=== PATIENT | male | born 1965 | race Caucasian/White ===

== ENCOUNTER 2019-12-20 18:16 | Emergency (ER) | payer SELFPAY ==
[2019-12-20 18:30] VITALS: BP 139/94; PULSE 89; RESP 18; TEMP 36.8; O2SAT 95; BMI 28.3
--- NOTE | 2019-12-20 18:41 | W.ED.EXTPRO ---
HPI - Extremity Problem General: Chief complaint: Extremity Injury, Upper Stated complaint: l arm pain/burning Time Seen by Provider: 12/20/19 18:41 History of Present Illness: HPI Narrative: Patient is a 54-year-old male who presents to the ED left shoulder pain. He states this is chronic issue and that he is told he has bursitis and has actually gotten left shoulder joint injections multiple times in the past several years. He denies any injury or trauma to cause left shoulder pain. He states the pain is just like his prior episodes. He also is complaining of having an episode yesterday where he was short of breath had chest pain and had some numbness and tingling down both extremities. He said this episode occurred 2 times yesterday and he was sitting down or lying down both the times it occurred. It resolved on its own. Patient does have diabetes, tobacco smoker and high cholesterol. He says 4 months ago they did a full heart workup and all results were normal. Associated symptoms: Reports chest pain (yesterday while laying down-it has since resolved); Deny fever(s) or rash Review of Systems Const: Denies: fever, chills or fatigue Eyes: Denies: change in vision or eye discomfort ENMT: Denies: throat pain, painful swallowing, nasal discharge or nasal congestion Card: Reports: chest pain (yesterday while laying down-it has since resolved); Denies: palpitations, edema, swelling of feet/ankles or shortness of breath when lying down Resp: Reports: shortness of breath (yesterday while laying down); Denies: productive cough or non-productive cough GI: Denies: abdominal pain, nausea, vomiting, diarrhea, constipation or blood in stool : Denies: flank pain, difficulty urinating, painful urination or blood in urine Musc: Reports: joint pain (chronic left shoulder pain); Denies: neck pain, back pain or extremity swelling Skin/Breast: Denies: rash or new lesion Neuro: Denies: headache, numbness in extremities or weakness in extremities PFSH ED PFSH: Social History Smoking and tobacco status: current every day smoker Physical Exam Narrative: EXAM NARRATIVE: Patient is a 54-year-old male who is sitting comfortably on the exam chair when entered the room. He is in no signs of acute distress or pain. Const: COMMON NORMALS: oriented x3 HENMT: COMMON NORMALS: normocephalic HEAD & SCALP: normocephalic MOUTH: oral and palatal mucosa normal THROAT: posterior oropharynx normal and uvula midline Neck/C-Spine: COMMON NORMALS: supple GENERAL: Yes normal visual inspection Resp: COMMON NORMALS: normal respiratory effort, no retractions, no use of accessory muscles and clear to auscultation bilaterally AUSCULTATION: clear to auscultation bilaterally Cardio: COMMON NORMALS: regular rate, regular rhythm, S1 normal heart sound, S2 normal heart sound, no gallops, no clicks, no murmurs and peripheral pulses 2+ throughout RATE: regular rate RHYTHM: regular rhythm HEART SOUNDS: S1 normal and S2 normal PERIPHERAL PULSES: pulses 2+ throughout GI: COMMON NORMALS: normal to inspection, nondistended, normoactive bowel sounds, soft to palpation, non-tender and no masses PALPATION: Yes soft : COMMON NORMALS: Yes no CVA tenderness BLADDER/KIDNEY EXAM: Yes no CVA tenderness Back/Pelvis: COMMON NORMALS: no CVA tenderness Extremity: LEFT UPPER EXTREMITY: Yes shoulder joint Left shoulder joint: Yes inspection (normal, no swelling), Yes palpation (tender on anterior and posterior aspect of shoulder), Yes ROM (normal but does have pain on movement) and Yes neurovascular exam (intact) Neuro: COMMON NORMALS: oriented x3 and moves all extremities Skin: COMMON NORMALS: no rashes or lesions noted GENERAL SKIN EXAM: no rashes or lesions noted and dry skin Course ED course: Due to shortness of breath yesterday I wanted to rule out any cardiac cause of shoulder pain. Patient's heart score was 3. Troponins were negative and ekg showed Normal sinus with no st elevation or depression. Patient denied any pain medication and was only wanting to get a joint injection while here in the ED. I told him that the staff here does not do joint injections and he should contact his PCP to schedule a joint injection. Vital Signs: Vital signs: Vital Signs Temperature 98.3 F 12/20/19 21:16 Pulse Rate 90 12/20/19 21:16 Respiratory Rate 16 12/20/19 21:16 Blood Pressure 103/59 12/20/19 21:16 Pulse Oximetry 97 12/20/19 21:16 MDM - Extremity (Nontraumatic) Lab Data: Labs: Lab Results 12/20/19 Range/Units 19:55 Troponin T Baselin e 8 (0-15) ng/mL Imaging Data^: Xray Ortho: Attestation: I personally reviewed and interpreted this imaging study as follows: My impression: Left Shoulder--No acute fractures pending final radiology report. EKG Data^: EKG 1: Attestation: I personally reviewed and interpreted this EKG as follows: EKG interpretation date: 12/20/19 Interpretation: Normal sinus rhythm, 82 bpm, no ST elevation or depression, P waves present Discharge Plan Discharge Patient Disposition: Home, Self-Care Clinical Impression: Shoulder pain, left Qualifiers: Chronicity: chronic Qualified Code(s): M25.512 - Pain in left shoulder Condition: Stable Prescriptions: No Action metformin 500 mg Tablet 500 mg PO BID RF: 0 glipizide 10 mg Tablet 10 mg PO DAILY RF: 0 tramadol 50 mg Tablet 50 mg PO Q4H RF: 0 Novolog Flexpen U-100 Insulin 100 unit/mL (3 mL) Insulin Pen SUBCUT DIRECTED RF: 0 Levemir FlexTouch U-100 Insuln 100 unit/mL (3 mL) Insulin Pen 30 unit SUBCUT BID RF: 0 Discharge Orders: Discharge Order (Routine); Ordered 12/20/19 Ordered By: Cezar Sánchez Referrals: Cezar Segura MD [Primary Care Provider] - Discharge Diet: Regular Discharge Activity: Increase activity as tolerated Patient Instructions: Bursitis - Shoulder Activity Restrictions/Additional Instructions: Follow-up with your PCP in 7 days for reevaluation. PCP should be able to do a joint injection or refer you to someone who can do a joint injection. Take npem-svr-[id number] ibuprofen or Tylenol as needed for pain. Discharge Date/Time: 12/20/19 21:19 Coding Level of Care Code ED Cat Scan Technologist for Chg Fwd Exam Comprehensive
--- NOTE | 2019-12-20 18:42 | XR_ITS ---
WS: [id number] SHOULDER LEFT TECHNIQUE: 3 views of the left shoulder CLINICAL INFORMATION: pain COMPARISON: None. FINDINGS: Moderate degenerative arthritis left AC joint. Mild rotator cuff arthropathy. No acute fractures. Pro ximal left humerus appears normal. XR/XR shoulder LT min 2V* [id number] IMPRESSION: Mild degenerative arthritis. No acute fractures.
[2019-12-20 19:07] VITALS: BP 147/95; PULSE 86; RESP 18; TEMP 36.8; O2SAT 95
--- NOTE | 2019-12-20 19:28 | ECG_ITS ---
Measurements Intervals [place] Rate: 82 P: 53 PA: 160 QRS: 60 QRSD: 105 T: 64 QT: 341 QTc: 399 SINUS RHYTHM Compared to ECG 06/14/2019 02:50:54 No significant changes Electronically Signed On 12-21-2019 15:16:33 JUDGE'S CLERK by Booker Cantu M.D. [email or web address]
--- NOTE | 2019-12-20 19:35 | PC.NURSE ---
READ AND AGREE WITH ASSESSMENT
[2019-12-20 20:26] LABS: Troponin(5th) Baseline 8 ng/mL (0-15)
[2019-12-20 21:16] VITALS: BP 103/59; PULSE 90; RESP 16; TEMP 36.8; O2SAT 97
== END 2019-12-20 21:19 | disposition home or self-care (01) ==
PROVIDERS: Emergency Provider Physician Assistant; Family Provider Family Medicine; PCP Family Medicine
DX: M25.512 Pain in left shoulder (principal); F17.200 Nicotine dependence, unspecified, uncomplicated
CPT/HCPCS: 36415; 73030; 84484; 93005; 99282; 99283

== ENCOUNTER → 2020-02-01 11:06 | Outpatient (BNVA) | payer SELFPAY | PROVIDERS: Family Provider Family Medicine; PCP Family Medicine; Visit Provider Family Medicine | DX: R05 Cough (principal); J10.1 Influenza due to other identified influenza virus with other respiratory manifestations; J45.21 Mild intermittent asthma with (acute) exacerbation | CPT/HCPCS: 87071; 87400; 87880 ==

== ENCOUNTER 2020-02-08 08:15 | Outpatient (CLI) | payer SELFPAY ==
--- NOTE | 2020-02-08 | XR_ITS ---
WS: [id number] PROCEDURE: XR chest 2V* [id number] CLINICAL INFORMATION: ACUTE LOWER RESPIRATORY TRACT INFECTION COMPARISON: June 13, 2019 FINDINGS: Heart: Normal cardiac silhouette. Lungs: Lungs are clear. No consolidation or pleural fluid. No acute pulmonary infiltrates. Bones: Postoperative changes lower cervical spine. XR/XR chest 2V* [id number] IMPRESSION: No acute chest findings.
== END 2020-02-08 08:16 | disposition home or self-care (01) ==
PROVIDERS: Family Provider Family Medicine; PCP Family Medicine; Visit Provider Family Medicine
DX: J22 Unspecified acute lower respiratory infection (principal)
CPT/HCPCS: 71046

== ENCOUNTER 2020-02-12 13:39 | Emergency (ER) | payer SELFPAY ==
[2020-02-12 13:44] VITALS: BP 169/115; PULSE 86; RESP 17; TEMP 36.9; O2SAT 96; BMI 28.3
--- NOTE | 2020-02-12 13:50 | ED_ITS ---
HPI - General Adult General: Chief complaint: General Medical Stated complaint: pain all over Time Seen by Provider: 02/12/20 13:44 History of Present Illness: HPI narrative: Patient suffers from chronic pain syndrome. He ran out of tramadol 5 days ago. States that he has been in severe pain since that time. Onset (ago): day(s) Review of Systems General: Reports: 10 or more systems reviewed and unremarkable except in HPI and below PFSH ED PFSH: Social History Smoking and tobacco status: current every day smoker Physical Exam Const: COMMON NORMALS: no apparent distress, average body habitus, oriented x3 and alert Neck/C-Spine: COMMON NORMALS: no JVD Resp: COMMON NORMALS: normal respiratory effort, no retractions, no use of accessory muscles and clear to auscultation bilaterally AUSCULTATION: clear to auscultation bilaterally Cardio: COMMON NORMALS: no JVD, regular rate and regular rhythm RATE: regular rate RHYTHM: regular rhythm Extremity: LEFT UPPER EXTREMITY: Yes shoulder joint Neuro: COMMON NORMALS: oriented x3 SENSORIUM/ORIENTATION: Yes alert Course Vital Signs: Vital signs: Vital Signs Temperature 98.4 F 02/12/20 13:44 Pulse Rate 86 02/12/20 13:44 Respiratory Rate 17 02/12/20 13:51 Blood Pressure 169/115 02/12/20 13:44 Pulse Oximetry 97 02/12/20 13:51 Discharge Plan Discharge Patient Disposition: Home, Self-Care Clinical Impression: Diabetic neuropathy Qualifiers: Diabetes mellitus type: type 1 Diabetes mellitus complication detail: diabetic polyneuropathy Qualified Code(s): E10.42 - Type 1 diabetes mellitus with diabetic polyneuropathy Chronic pain Qualifiers: Chronic pain type: chronic pain syndrome Qualified Code(s): G89.4 - Chronic pain syndrome Condition: Stable Prescriptions: New tramadol 50 mg tablet 25 mg PO Q6H PRN (Reason: pain) Qty: 20 RF: 0 No Action tramadol 50 mg tablet 50 mg PO Q4H 15 Days Qty: 90 RF: 0 metformin 500 mg Tablet 500 mg PO BID RF: 0 glipizide 10 mg Tablet 10 mg PO DAILY RF: 0 Novolog Flexpen U-100 Insulin 100 unit/mL (3 mL) Insulin Pen SUBCUT DIRECTED RF: 0 Levemir FlexTouch U-100 Insuln 100 unit/mL (3 mL) Insulin Pen 30 unit SUBCUT BID RF: 0 Discharge Orders: Discharge Order (Routine); Ordered 02/12/20 Ordered By: Enio Glover Referrals: Cezar Segura MD [Primary Care Provider] - Coding Level of Care Code ED Admitting Supervisor for Chg Fwd Exam Detailed
[2020-02-12 13:51] VITALS: RESP 17; O2SAT 97
[2020-02-12 14:11] VITALS: BP 122/54; PULSE 78; RESP 17; O2SAT 98
== END 2020-02-12 14:15 | disposition home or self-care (01) ==
LOC: ER 14:16
PROVIDERS: Emergency Provider Family Medicine; Family Provider Family Medicine; PCP Family Medicine
DX: G89.4 Chronic pain syndrome (principal); E10.42 Type 1 diabetes mellitus with diabetic polyneuropathy; Z79.4 Long term (current) use of insulin; F17.210 Nicotine dependence, cigarettes, uncomplicated; Z79.891 Long term (current) use of opiate analgesic
CPT/HCPCS: 12345; 99282

== ENCOUNTER → 2020-04-17 10:37 | Outpatient (BNVA) | payer SELFPAY | PROVIDERS: Family Provider Family Medicine; PCP Family Medicine; Visit Provider Urology | DX: N52.9 Male erectile dysfunction, unspecified (principal); R39.9 Unspecified symptoms and signs involving the genitourinary system; N49.2 Inflammatory disorders of scrotum | CPT/HCPCS: 81001 ==

== ENCOUNTER 2020-05-27 14:49 | Emergency (ER) | payer SELFPAY ==
[2020-05-27 15:05] VITALS: BP 133/89; PULSE 78; RESP 16; TEMP 36.1; O2SAT 95; BMI 28.6
--- NOTE | 2020-05-27 15:33 | XRR_ITS ---
PROCEDURE INFORMATION: Exam: XR Right Foot Complete Exam date and time: 05/27/2020 3:34 PM Age: 54 years old Clinical indication: Injury or trauma; Fall; Initial encounter; Sprain or strain; Foot; Right; Additional info: Pain/injury TECHNIQUE: Imaging protocol: XR Right foot. Views: 3 or more views. COMPARISON: No relevant prior studies available. FINDINGS: Bones/joints: Unremarkable Soft tissues: Normal. XR/XR foot RT min 3V* [id number] IMPRESSION: No acute findings.
--- NOTE | 2020-05-27 15:33 | XRR_ITS ---
PROCEDURE INFORMATION: Exam: XR Right Ankle Exam date and time: 05/27/2020 3:34 PM Age: 54 years old Clinical indication: Injury or trauma; Fall; Initial encounter; Sprain or strain; Ankle; Right; Additional info: Injury/pain TECHNIQUE: Imaging protocol: XR Right ankle. Views: 3 or more views. COMPARISON: No relevant prior studies available. FINDINGS: Bones/joints: Negative for acute bony abnormality. Soft tissues: Normal. XR/XR ankle RT min 3V* [id number] IMPRESSION: No acute findings.
--- NOTE | 2020-05-27 15:39 | W.ED.LOWEXIN ---
HPI - Extremity Injury (Lower) General: Chief Complaint: Extremity Injury, Lower Stated Complaint: right ankle pain/injury Time Seen by Provider: 05/27/20 15:23 Source: patient Mode of arrival: ambulatory Limitations: no limitations History of Present Illness: HPI Narrative: Patient is a 54-year-old male who presents to ED today with a complaint of right foot and ankle pain. 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 He states he began noticing pain on and states the pain has persisted. Patient is ambulatory with a gait here in the emergency department. complaint: ankle injury and foot injury Onset (ago): day(s) Injury: Right: ankle and foot Type of Injury: inversion Severity: moderate Relieving factors: immobilization Exacerbating factors: weight bearing, movement and palpation Context: other (twisting) Review of Systems Musc: Reports: extremity pain (R foot) and joint pain (R ankle); Denies: extremity swelling or joint swelling Neuro: Denies: numbness in extremities or sensory changes PFSH ED PFSH: Medical History (Updated 05/27/20 @ 16:06 by JAXON Ram) Encounter for long-term opiate analgesic use Erectile dysfunction Family History Father COPD (chronic obstructive pulmonary disease) Hypertension Hyperlipidemia Mother , at age 65 Hypertension Hyperlipidemia COPD (chronic obstructive pulmonary disease) Social History (Updated 05/27/20 @ 15:11 by Dieter Rodriguez RN) Smoking and tobacco status: current every day smoker cigarettes Second hand smoke exposure: No Alcohol intake: never Substance/Drug Use: never Marital status: Current occupational status: employed History of recent travel: No Physical Exam Const: COMMON NORMALS: no acute distress, average body habitus, patient oriented x3, no limitations, healthy appearing, alert and well nourished Extremity: GENERAL: Yes normal exam except as noted OTHER: TTP R lateral malleolus and lateral foot; no swelling/deformity noted Neuro: COMMON NORMALS: patient oriented x3, moves all extremities, no focal motor deficits and no sensory deficits noted SENSORIUM/ORIENTATION: Yes alert Skin: COMMON NORMALS: no rashes or lesions noted GENERAL SKIN EXAM: no rashes or lesions noted Course Vital Signs: Vital signs: Vital Signs Temperature 97.0 F L 05/27/20 15:05 Pulse Rate 78 05/27/20 15:05 Respiratory Rate 16 05/27/20 15:05 Blood Pressure 133/89 05/27/20 15:05 Pulse Oximetry 95 05/27/20 15:05 MDM - Extremity Injury (Lower) Imaging Data^: R ankle XR: Radiologist's impression: [address] [place] [address] XRay Report Signed Patient: Sal Timmons Unit #: [id number] : 1965 Age/Sex: 54 / M ADM Date: 05/27/20 Loc: ER Room/Bed: Attending Dr: Ordering Provider/Ordering MD: Louise Archer Date of Service: 05/27/20 Procedure(s): XR ankle RT min 3V* 82557 Accession Number(s): [id number] Report Number: [id number] PROCEDURE INFORMATION: Exam: XR Right Ankle Exam date and time: 05/27/2020 3:34 PM Age: 54 years old Clinical indication: Injury or trauma; Fall; Initial encounter; Sprain or strain; Ankle; Right; Additional info: Injury/pain TECHNIQUE: Imaging protocol: XR Right ankle. Views: 3 or more views. COMPARISON: No relevant prior studies available. FINDINGS: Bones/joints: Negative for acute bony abnormality. Soft tissues: Normal. XR/XR ankle RT min 3V* [id number] IMPRESSION: No acute findings. Dictated By: Miguel Santos Signed By: Miguel Santos Signed Date/Time: 05/27/20 1602 DD/ 1602 R foot XR: Radiologist's impression: [address] [place] [address] XRay Report Signed Patient: Sal Timmons Unit #: [id number] : 1965 Age/Sex: 54 / M ADM Date: 05/27/20 Loc: ER Room/Bed: Attending Dr: Ordering Provider/Ordering MD: Louise Archer Date of Service: 05/27/20 Procedure(s): XR foot RT min 3V* 48678 Accession Number(s): [id number] Report Number: [id number] PROCEDURE INFORMATION: Exam: XR Right Foot Complete Exam date and time: 05/27/2020 3:34 PM Age: 54 years old Clinical indication: Injury or trauma; Fall; Initial encounter; Sprain or strain; Foot; Right; Additional info: Pain/injury TECHNIQUE: Imaging protocol: XR Right foot. Views: 3 or more views. COMPARISON: No relevant prior studies available. FINDINGS: Bones/joints: Unremarkable Soft tissues: Normal. XR/XR foot RT min 3V* 22896 IMPRESSION: No acute findings. Dictated By: Miguel Santos Signed By: Miguel Santos Signed Date/Time: 05/27/201604 DD/ 03 Discharge Plan Discharge Patient Disposition: Home Clinical Impression: Mild sprain of right ankle Qualifiers: Encounter type: initial encounter Qualified Code(s): S93.401A - Sprain of unspecified ligament of right ankle, initial encounter Condition: Stable Prescriptions: No Action tramadol 50 mg tablet 50 mg PO Q4H 15 Days Qty: 180 RF: 2 metformin 500 mg Tablet 500 mg PO BID RF: 0 glipizide 10 mg Tablet 10 mg PO DAILY RF: 0 insulin aspart U-100 [Novolog Flexpen U-100 Insulin] 100 unit/mL (3 mL) Insulin Pen See Rx Instructions .ROUTE .COMPLEX RF: 0 Levemir FlexTouch U-100 Insuln 100 unit/mL (3 mL) Insulin Pen 30 unit SUBCUT BID RF: 0 Aspirin Low Dose 81 mg Tablet,Delayed Release (Dr/Ec) 81 mg PO DAILY RF: 0 Xanax 0.5 mg Tablet 0.5 mg PO BEDTIME RF: 0 Discharge Orders: Discharge Order (Routine); Ordered 05/27/20 Ordered By: Louise Archer Referrals: Cezar Segura MD [Primary Care Provider] - Patient Instructions: Ankle Sprain (ED), RICE Therapy (ED) Activity Restrictions/Additional Instructions: As discussed you may be weight bearing as tolerated. Please follow-up with your primary care provider in one week for continued pain. Coding Level of Care Code ED Top And Seat Cover Fitter for Pascual Smith
[2020-05-27 16:13] VITALS: BP 132/86; PULSE 78; RESP 18; O2SAT 95
== END 2020-05-27 16:13 | disposition home or self-care (01) ==
PROVIDERS: Emergency Provider Physician Assistant; PCP Family Medicine
DX: S93.401A Sprain of unspecified ligament of right ankle, initial encounter (principal); Z79.82 Long term (current) use of aspirin; Z79.4 Long term (current) use of insulin; F17.210 Nicotine dependence, cigarettes, uncomplicated; X50.1XXA Overexertion from prolonged static or awkward postures, initial encounter
CPT/HCPCS: 12345; 73610; 73630; 99282; 99283; E0114

== ENCOUNTER 2020-06-03 18:08 | Emergency (ER) | payer SELFPAY ==
[2020-06-03 18:29] VITALS: BP 137/88; PULSE 96; RESP 14; TEMP 36.3; O2SAT 95; BMI 29.0
--- NOTE | 2020-06-03 18:37 | CTR_ITS ---
PROCEDURE INFORMATION: Exam: CT Abdomen And Pelvis With Contrast Exam date and time: 06/03/2020 7:21 PM Age: 54 years old Clinical indication: Abdominal pain; Localized; Right lower quadrant (rlq); Patient HX: C/O rlq abd pain and nausea TECHNIQUE: Imaging protocol: Computed tomography of the abdomen and pelvis with intravenous contrast. Radiation optimization: All CT scans at this facility use at least one of these dose optimization techniques: automated exposure control; mA and/or kV adjustment per patient size (includes targeted exams where dose is matched to clinical indication); or iterative reconstruction. Contrast material: OMNI 300; Contrast volume: 95 ml; Contrast route: INTRAVENOUS (IV); COMPARISON: No relevant prior studies available. RADIATION DOSE METRICS: Total DLP (mGy-cm): 1426.59 FINDINGS: Lungs: Limited assessment lung bases reveals a tiny approximately 2 mm pulmonary nodule in the subpleural space of the right middle lobe series 2, image 2. No other evidence of active interstitial or alveolar airspace disease. Liver: Unremarkable. No mass. Gallbladder and bile ducts: Normal. No calcified stones. No ductal dilation. Pancreas: Normal. No ductal dilation. Spleen: Rare calcified splenic granuloma. Tiny splenule. Spleen otherwise unremarkable. Adrenals: Normal. No mass. Kidneys and ureters: Normal. No hydronephrosis. Stomach and bowel: Nonobstructive bowel pattern. No visible adynamic or reactive ileus. Appendix: The appendix is visualized appears noninflamed. Intraperitoneal space: Unremarkable. No free air. No significant fluid collection. Vasculature: The abdominal aorta is nonaneurysmal. Moderate arterial sclerotic disease. Lymph nodes: Unremarkable. No enlarged lymph nodes. Bladder: Unremarkable as visualized. Reproductive: Unremarkable as visualized. Bones/joints: Degenerative disc disease with vacuum disc phenomenon L4/5 and L5/S1. Degenerative disease of the spine. Facet arthrosis. Soft tissues: Small focus of subcutaneous fat stranding left mid abdomen of indeterminate clinical significance. No visible soft tissue hematoma, seroma, or abscess. CT/CT abdomen pelvis w con* [id number] IMPRESSION: 1. Currently no visible evidence of acute abdominal or pelvic pathologic process. 2. Tiny approximately 2 mm pulmonary nodule right middle lobe. For patients at low risk (minimal or absent history of smoking and of other known risk factors), no routine follow-up is indicated. For patients at high risk (history of smoking or of other known risk factors), consider optional CT at 12 months. ([place] et al., Fleischner Society, 2017). 3. The appendix is visualized appears noninflamed. 4. Other nonurgent, nonemergent, chronic, and age related findings as discussed in text above. Radiation Dose CTDIVOL = (mGy): DLP = 1426.59 (mGy-cm)
[2020-06-03 18:43] VITALS: O2SAT 94
--- NOTE | 2020-06-03 18:43 | ED_ITS ---
HPI - Abdominal Pain General: Chief Complaint: Abdominal Pain Stated Complaint: lower right abd pain Time Seen by Provider: 06/03/20 18:34 Source: patient Mode of arrival: ambulatory Limitations: no limitations History of Present Illness: HPI narrative: 54-year-old male who states he been having right lower quadrant pain over the last 2 days. He states pain got much worse today. He states it is worse with movement. He has had some nausea. Denies any diarrhea. MD elicited complaint: abdominal pain Pertinent past history: none Onset (ago): day(s) Pain Consistency: constant Location: RLQ Severity: moderate Quality: stabbing Radiation: none Migration to: no migration Exacerbating factors: movement Relieving factors: rest Associated Symptoms: Denies chills, dysuria and fever(s) Review of Systems Const: Denies: fever(s), chills, body aches or change in appetite Eyes: Denies: blurry vision or eye discomfort ENMT: Denies: throat pain or dental pain Card: Denies: chest pain Resp: Denies: dyspnea GI: Reports: abdominal pain : Denies: dysuria Musc: Denies: neck pain or back pain Skin/Breast: Denies: rash Neuro: Denies: headache(s) Psych: Denies: depression Derick/Lymph: Denies: easy bruising All/Imm: Denies: urticaria PFSH ED PFSH: Medical History Encounter for long-term opiate analgesic use Erectile dysfunction Family History Father COPD (chronic obstructive pulmonary disease) Hypertension Hyperlipidemia Mother , at age 65 Hypertension Hyperlipidemia COPD (chronic obstructive pulmonary disease) Social History Smoking and tobacco status: current every day smoker cigarettes Second hand smoke exposure: No Alcohol intake: never Marital status: Current occupational status: employed History of recent travel: No Physical Exam Const: COMMON NORMALS: no acute distress, patient oriented x3 and healthy appearing HENMT: COMMON NORMALS: normocephalic and atraumatic HEAD & SCALP: normocephalic and atraumatic Eye: COMMON NORMALS: Equal, round and reactive pupils present and EOMs intact bilaterally PUPIL: Yes Equal, round and reactive pupils present Neck/C-Spine: COMMON NORMALS: full ROM and supple Chest: COMMONS NORMALS: normal inspection of the chest and normal palpation of entire chest wall Resp: COMMON NORMALS: normal respiratory effort, No retractions, No use of accessory muscles and clear to auscultation bilaterally AUSCULTATION: clear to auscultation bilaterally Cardio: COMMON NORMALS: regular rate, regular rhythm and No murmurs present (Cardio) RATE: regular rate RHYTHM: regular rhythm GI: COMMON NORMALS: Normal to inspection, nondistended, normoactive bowel sounds present, Soft to palpation and no masses PALPATION: Yes Soft to palpation and Yes Tenderness to palpation present (GI) Details: RLQ Extremity: COMMON NORMALS: normal to inspection and full ROM Neuro: COMMON NORMALS: patient oriented x3, moves all extremities and no focal motor deficits Psych: COMMON NORMALS: mental status grossly normal, Normal thought process present and cooperative THOUGHT PROCESS: Normal thought process present Skin: COMMON NORMALS: no rashes or lesions noted and no wounds GENERAL SKIN EXAM: no rashes or lesions noted Course Vital Signs: Vital signs: Vital Signs Temperature 97.3 F L 06/03/20 18:29 Pulse Rate 96 06/03/20 18:29 Respiratory Rate 18 06/03/20 19:10 Blood Pressure 137/88 06/03/20 18:29 Pulse Oximetry 94 06/03/20 18:43 MDM - Abdominal Pain MDM Narrative: Medical decision making narrative: Patient presents with abdominal pain along with right hip pain is likely muscular in nature. Patient CT scan here showed no signs of appendicitis. Patient has good pulses to bilateral feet. Patient's lab work is normal as well. Patient is stable for discharge and is to follow-up with his PCP in 3 to 5 days and return if worsening. Lab Data: Labs: Lab Results 06/03/20 06/03/20 Range/Units 18:40 18:40 WBC 10.2 H (4.0-10.0) 10^3/ uL RBC 5.32 H (4.1-5.3) 10^6/u L Hgb 15.7 (11.7-16.6) g/dL Hct 47.3 (42.0-52.0) % MCV 88.9 (80-94) fL MCH 29.5 (28.0-34.0) pg MCHC 33.2 (30.0-36.0) g/dL RDW 12.6 (12.1-15.1) % Plt Count 254 (130-400) 10^3/c mm MPV 10.4 (7.4-10.4) fL Neut % (Auto) 64.5 % Lymph % (Auto) 23.7 % [place] % (Auto) 8.4 % Eos % (Auto) 2.4 % Baso % (Auto) 0.7 % Neut # (Auto) 6.59 (1.8-7.7) 10^3/u L Lymph # (Auto) 2.4 (0.8-4.8) 10^3/u L [place] # (Auto) 0.9 (0.2-0.9) 10^3/u L Eos # (Auto) 0.3 (0.0-0.8) 10^3/u L Baso # (Auto) 0.1 (0.0-0.1) 10^3/u L Nucleated RBC % (a uto) 0 % Nucleated RBCs # 0.0 /100WBC Sodium 134 L (136-145) mmol/L Potassium 4.5 (3.5-5.1) mmol/L Chloride 101 (98-107) mmol/L Carbon Dioxide 24 (22-29) mmol/L Anion Gap 13.5 (5-19) BUN 21 H (6-20) mg/dL Creatinine 1.0 (0.7-1.2) mg/dL GFR Calculation 77.6 L (90-130) mL/min Glucose 291 H (65-115) mg/dL Calculated Osmolal ity 285 (285-295) mOsm/k g Calcium 9.2 (8.5-10.5) mg/dL Total Bilirubin 0.4 (0.15-1.2) mg/dL AST 18 (0-40) U/L ALT 36 (0-41) U/L Alkaline Phosphata se 66 (40-130) IU/L Total Protein 7.8 (6.6-8.7) g/dL Albumin 4.4 (3.5-5.2) g/dL Globulin 3.4 (1.3-4.6) g/dL Lipase 12 L (13-60) U/L Imaging Data ^: CT Abd/Pel: Radiologist's impression: [facility] [address] [address] CT Scan Report Signed Patient: Sal Timmons Unit #: [id number] : 1965 Age/Sex: 54 / M ADM Date: 06/03/20 Loc: ER Room/Bed: Attending Dr: Ordering Provider/Ordering MD: Rani Savage MD Date of Service: 06/03/20 Procedure(s): CT abdomen pelvis w con* [id number] Accession Number(s): [id number] Report Number: [id number] PROCEDURE INFORMATION: Exam: CT Abdomen And Pelvis With Contrast Exam date and time: 06/03/2020 7:21 PM Age: 54 years old Clinical indication: Abdominal pain; Localized; Right lower quadrant (rlq); Patient HX: C/O rlq abd pain and nausea TECHNIQUE: Imaging protocol: Computed tomography of the abdomen and pelvis with intravenous contrast. Radiation optimization: All CT scans at this facility use at least one of these dose optimization techniques: automated exposure control; mA and/or kV adjustment per patient size (includes targeted exams where dose is matched to clinical indication); or iterative reconstruction. Contrast material: OMNI 300; Contrast volume: 95 ml; Contrast route: INTRAVENOUS (IV); COMPARISON: No relevant prior studies available. RADIATION DOSE METRICS: Total DLP (mGy-cm): 1426.59 FINDINGS: Lungs: Limited assessment lung bases reveals a tiny approximately 2 mm pulmonary nodule in the subpleural space of the right middle lobe series 2, image 2. No other evidence of active interstitial or alveolar airspace disease. Liver: Unremarkable. No mass. Gallbladder and bile ducts: Normal. No calcified stones. No ductal dilation. Pancreas: Normal. No ductal dilation. Spleen: Rare calcified splenic granuloma. Tiny splenule. Spleen otherwise unremarkable. Adrenals: Normal. No mass. Kidneys and ureters: Normal. No hydronephrosis. Stomach and bowel: Nonobstructive bowel pattern. No visible adynamic or reactive ileus. Appendix: The appendix is visualized appears noninflamed. Intraperitoneal space: Unremarkable. No free air. No significant fluid collection. Vasculature: The abdominal aorta is nonaneurysmal. Moderate arterial sclerotic disease. Lymph nodes: Unremarkable. No enlarged lymph nodes. Bladder: Unremarkable as visualized. Reproductive: Unremarkable as visualized. Bones/joints: Degenerative disc disease with vacuum disc phenomenon L4/5 and L5/S1. Degenerative disease of the spine. Facet arthrosis. Soft tissues: Small focus of subcutaneous fat stranding left mid abdomen of indeterminate clinical significance. No visible soft tissue hematoma, seroma, or abscess. CT/CT abdomen pelvis w con* [id number] IMPRESSION: 1. Currently no visible evidence of acute abdominal or pelvic pathologic process. 2. Tiny approximately 2 mm pulmonary nodule right middle lobe. For patients at low risk (minimal or absent history of smoking and of other known risk factors), no routine follow-up is indicated. For patients at high risk (history of smoking or of other known risk factors), consider optional CT at 12 months. (nikos Barahona al., Fleischner Society, 2017). 3. The appendix is visualized appears noninflamed. 4. Other nonurgent, nonemergent, chronic, and age related findings as discussed in text above. Discharge Plan Discharge Patient Disposition: Home Clinical Impression: Abdominal pain Qualifiers: Abdominal location: right lower quadrant Qualified Code(s): R10.31 - Right lower quadrant pain Condition: Stable Prescriptions: [place] 5-325 mg tablet 1 tab PO Q6H PRN (Reason: pain) Qty: 14 RF: 0 ondansetron 4 mg tablet,disintegrating 4 mg PO Q6H PRN (Reason: nausea and vomiting) Qty: 14 RF: 0 No Action tramadol 50 mg tablet 50 mg PO Q4H 15 Days Qty: 180 RF: 2 metformin 500 mg Tablet 500 mg PO BID RF: 0 glipizide 10 mg Tablet 10 mg PO DAILY RF: 0 insulin aspart U-100 [Novolog Flexpen U-100 Insulin] 100 unit/mL (3 mL) Insulin Pen See Rx Instructions .ROUTE .COMPLEX RF: 0 Levemir FlexTouch U-100 Insuln 100 unit/mL (3 mL) Insulin Pen 30 unit SUBCUT BID RF: 0 Aspirin Low Dose 81 mg Tablet,Delayed Release (Dr/Ec) 81 mg PO DAILY RF: 0 Xanax 0.5 mg Tablet 0.5 mg PO BEDTIME RF: 0 Discharge Orders: Discharge Order (Routine); Ordered 06/03/20 Ordered By: Rani Savage Referrals: Cezar Segura MD [Primary Care Provider] - 1-3 days Discharge Diet: Advance as tolerated Discharge Activity: Resume usual activity Patient Instructions: Abdominal Pain (ED) Coding Level of Care Code ED Clinical Laboratory Medical Director for Chg Fwd Exam Comprehensive
[2020-06-03 18:54] LABS: Basophils # 0.1 10^3/uL (0.0-0.1); Basophils % 0.7 %; Eosinophils # 0.3 10^3/uL (0.0-0.8); Eosinophils % 2.4 %; Hematocrit 47.3 % (42.0-52.0); Hemoglobin 15.7 g/dL (11.7-16.6); Lymphocytes # 2.4 10^3/uL (0.8-4.8); Lymphocytes % 23.7 %; Mean Corpuscular HGB Conc 33.2 g/dL (30.0-36.0); Mean Corpuscular Hemoglobin 29.5 pg (28.0-34.0); Mean Corpuscular Volume 88.9 fL (80-94); Mean Platelet Volume 10.4 fL (7.4-10.4); Monocytes # 0.9 10^3/uL (0.2-0.9); Monocytes % 8.4 %; Neutrophils # 6.59 10^3/uL (1.8-7.7); Neutrophils % 64.5 %; Nucleated Red Blood Cells % 0 %; Platelet Count 254 10^3/cmm (130-400); Red Blood Count 5.32 10^6/uL (4.1-5.3); Red Cell Distribution Width 12.6 % (12.1-15.1); White Blood Count 10.2 10^3/uL (4.0-10.0)
[2020-06-03] MEDS: ondansetron 2 mg/ML SDV 2 mL 4 MG IVP (19:09)
[2020-06-03] MEDS: sodium chloride 0.9% 1,000 ML 999 ML IV (19:09)
[2020-06-03 19:10] VITALS: RESP 18
[2020-06-03] MEDS: HYDROmorphone 1 mg/mL INJ 1 mL IVP (19:10)
[2020-06-03 19:15] LABS: Alanine Aminotransferase 36 U/L (0-41); Albumin Level 4.4 g/dL (3.5-5.2); Alkaline Phosphatase 66 IU/L (40-130); Anion Gap 13.5 (5-19); Aspartate Amino Transferase 18 U/L (0-40); Blood Urea Nitrogen 21 mg/dL (6-20); Calcium 9.2 mg/dL (8.5-10.5); Carbon Dioxide 24 mmol/L (22-29); Chloride 101 mmol/L (98-107); Globulin 3.4 g/dL (1.3-4.6); Glomerular Filtration Rate 77.6 mL/min (90-130); Glucose 291 mg/dL (65-115); Lipase 12 U/L (13-60); Osmolality Calculated 285 mOsm/kg (285-295); Potassium 4.5 mmol/L (3.5-5.1); Sodium 134 mmol/L (136-145); Total Bilirubin 0.4 mg/dL (0.15-1.2); Total Protein 7.8 g/dL (6.6-8.7)
[2020-06-03] MEDS: iohexol 300 mg/mL 100 mL Btl IV (19:27)
[2020-06-03 20:46] VITALS: BP 121/81; PULSE 83; RESP 18; O2SAT 99
[2020-06-03 20:47] VITALS: BP 121/81; PULSE 83; RESP 18; O2SAT 100
== END 2020-06-03 20:48 | disposition home or self-care (01) ==
PROVIDERS: Emergency Provider Emergency Medicine; PCP Family Medicine
DX: R10.31 Right lower quadrant pain (principal); Z79.82 Long term (current) use of aspirin; Z79.4 Long term (current) use of insulin; F17.210 Nicotine dependence, cigarettes, uncomplicated
CPT/HCPCS: 12345; 74177; 80053; 83690; 85025; 96361; 96374; 96375; 99282; 99283; J1170; J2405; J7030; Q9967

== ENCOUNTER 2020-06-07 16:25 | Outpatient (CLI) | payer SELFPAY ==
[2020-06-07 16:51] LABS: Basophils # 0.1 10^3/uL (0.0-0.1); Basophils % 0.7 %; Eosinophils # 0.3 10^3/uL (0.0-0.8); Eosinophils % 3.1 %; Hematocrit 46.6 % (42.0-52.0); Hemoglobin 15.6 g/dL (11.7-16.6); Lymphocytes # 2.4 10^3/uL (0.8-4.8); Lymphocytes % 25.1 %; Mean Corpuscular HGB Conc 33.5 g/dL (30.0-36.0); Mean Corpuscular Hemoglobin 29.8 pg (28.0-34.0); Mean Corpuscular Volume 89.1 fL (80-94); Mean Platelet Volume 11.1 fL (7.4-10.4); Monocytes # 0.7 10^3/uL (0.2-0.9); Monocytes % 7.7 %; Neutrophils # 5.95 10^3/uL (1.8-7.7); Neutrophils % 63.2 %; Nucleated Red Blood Cells % 0 %; Platelet Count 232 10^3/cmm (130-400); Red Blood Count 5.23 10^6/uL (4.1-5.3); Red Cell Distribution Width 12.5 % (12.1-15.1); White Blood Count 9.4 10^3/uL (4.0-10.0)
[2020-06-07 17:14] LABS: Alanine Aminotransferase 34 U/L (0-41); Albumin Level 4.3 g/dL (3.5-5.2); Alkaline Phosphatase 65 IU/L (40-130); Anion Gap 15.4 (5-19); Aspartate Amino Transferase 19 U/L (0-40); Blood Urea Nitrogen 28 mg/dL (6-20); Calcium 9.2 mg/dL (8.5-10.5); Carbon Dioxide 24 mmol/L (22-29); Chloride 101 mmol/L (98-107); Globulin 3.3 g/dL (1.3-4.6); Glomerular Filtration Rate 87.6 mL/min (90-130); Glucose 312 mg/dL (65-115); Osmolality Calculated 291 mOsm/kg (285-295); Potassium 4.4 mmol/L (3.5-5.1); Sodium 136 mmol/L (136-145); Total Bilirubin 0.2 mg/dL (0.15-1.2); Total Protein 7.6 g/dL (6.6-8.7)
[2020-06-07 17:32] LABS: Estmated Average Glucose 223; Hemoglobin A1C 9.4 % (4.0-6.0)
== END 2020-06-07 16:26 | disposition home or self-care (01) ==
LOC: LAB 16:26
PROVIDERS: PCP Family Medicine; Visit Provider General Practice
DX: E11.9 Type 2 diabetes mellitus without complications (principal); I10 Essential (primary) hypertension
CPT/HCPCS: 80053; 83036; 85025

== ENCOUNTER 2020-06-11 18:08 | Emergency (ER) | payer SELFPAY ==
[2020-06-11 18:10] VITALS: BP 154/101; PULSE 91; RESP 18; TEMP 36.6; O2SAT 98; BMI 29.7
[2020-06-11 18:24] VITALS: BP 166/107; PULSE 93; RESP 18; O2SAT 96
--- NOTE | 2020-06-11 18:27 | PC.NURSE ---
Generalized pain in all extremities , hx of neuropathy. States he is out of Tramadol and non complaint for diabetes
--- NOTE | 2020-06-11 18:38 | W.ED.GENADLT ---
HPI - General Adult General: Chief complaint: General Medical Stated complaint: arm/leg pain Time Seen by Provider: 06/11/20 18:27 Source: patient Mode of arrival: ambulatory History of Present Illness: HPI narrative: Patient is a 54-year-old gentleman with a history of diabetic neuropathy with neuropathic pain who follows at the pain clinic where he gets tramadol tablets. He had lost his Medicaid insurance and so could not follow-up at the pain clinic and get his refills. He has since been put back on Medicaid and has an appointment coming up with the pain specialist. Because his Medicaid has not kicked in yet he was advised by the pain specialist to come to the emergency department to be evaluated as they will not see him without insurance. He would like a refill of his pain medication. Associated symptoms: Deny dyspnea, headache(s), nausea, rash, palpitations or vomiting Review of Systems General: Reports: 10 or more systems reviewed and unremarkable except in HPI and below Const: Denies: fever(s), chills or body aches Eyes: Denies: change in vision or blurry vision ENMT: Denies: throat pain, enlarged tonsils, odynophagia, hoarseness, mouth pain or swelling of lips/tongue Card: Denies: palpitations, irregular heart rhythm, edema or swelling of feet/ankles Resp: Denies: dyspnea, productive cough or non-productive cough GI: Denies: abdominal pain, nausea or vomiting : Denies: flank pain, dysuria, urinary frequency, urinary urgency or urinary hesitancy Musc: Reports: muscle cramps; Denies: neck pain, back pain or extremity swelling Skin/Breast: Denies: rash, pruritus or erythema Neuro: Reports: numbness in extremities; Denies: headache(s) or weakness in extremities Endo: Denies: polyuria, polydipsia or tired all the time PFSH ED PFSH: Medical History (Reviewed 06/11/20 @ 20:09 by Balbir Patiño MD, [facility]) Encounter for long-term opiate analgesic use Erectile dysfunction Family History (Reviewed 06/11/20 @ 20:09 by Balbir Patiño MD, [facility] [place]) Father COPD (chronic obstructive pulmonary disease) Hypertension Hyperlipidemia Mother , at age 65 Hypertension Hyperlipidemia COPD (chronic obstructive pulmonary disease) Social History (Reviewed 06/11/20 @ 20:09 by Balbir Patiño MD, [facility] [place]) Smoking and tobacco status: current every day smoker cigarettes Second hand smoke exposure: No Alcohol intake: never Marital status: Current occupational status: employed History of recent travel: No Physical Exam Const: COMMON NORMALS: no acute distress, average body habitus, patient oriented x3, no limitations, healthy appearing, alert and well nourished Neck/C-Spine: COMMON NORMALS: no meningeal signs and no JVD Resp: COMMON NORMALS: normal respiratory effort, No retractions, No use of accessory muscles, clear to auscultation bilaterally and percussion normal AUSCULTATION: clear to auscultation bilaterally PERCUSSION: percussion normal Cardio: COMMON NORMALS: no JVD, regular rate, regular rhythm, S1 normal heart sound present, S2 normal heart sound present, No gallops present (Cardio), No clicks present (Cardio), No murmurs present (Cardio), No rub (Cardio) and Peripheral pulses 2+ throughout RATE: regular rate RHYTHM: regular rhythm HEART SOUNDS: S1 normal heart sound present and S2 normal heart sound present PERIPHERAL PULSES: Peripheral pulses 2+ throughout GI: COMMON NORMALS: Normal to inspection, nondistended, normoactive bowel sounds present, Soft to palpation, non-tender, No hepatosplenomegaly present, no masses and no bruits PALPATION: Yes Soft to palpation and Yes No hepatosplenomegaly present Extremity: COMMON NORMALS: normal to inspection, full ROM, capillary refill normal, no calf tenderness and no pedal edema Neuro: COMMON NORMALS: patient oriented x3 SENSORIUM/ORIENTATION: Yes alert MENINGEAL SIGNS: Yes no meningeal signs Skin: COMMON NORMALS: no rashes or lesions noted, no wounds, turgor normal, no jaundice, no petechiae and no mottling GENERAL SKIN EXAM: no rashes or lesions noted and turgor normal Course Vital Signs: Vital signs: Vital Signs Temperature 98.3 F 06/11/20 18:51 Pulse Rate 90 06/11/20 18:51 Respiratory Rate 20 H 06/11/20 18:51 Blood Pressure 166/107 06/11/20 18:51 Pulse Oximetry 96 06/11/20 18:51 MDM - General Adult MDM Narrative: Medical decision making narrative: 54-year-old gentleman with neuropathic pain who had run out of his pain prescriptions. He has an upcoming appointment to see the pain specialist so I will give him a short course of tramadol to tide him over until he gets seen. Medical Records: Attestation: I reviewed the patient's medical records. Discharge Plan Discharge Patient Disposition: Home Clinical Impression: Neuropathic pain, Neuropathy Condition: Stable Prescriptions: New tramadol 50 mg tablet 50 mg PO Q8H PRN (Reason: pain) Qty: 12 RF: 0 Continued tramadol 50 mg tablet 50 mg PO Q4H 15 Days Qty: 180 RF: 2 metformin 500 mg Tablet 500 mg PO BID RF: 0 glipizide 10 mg Tablet 10 mg PO DAILY RF: 0 insulin aspart U-100 [Novolog Flexpen U-100 Insulin] 100 unit/mL (3 mL) Insulin Pen See Rx Instructions .ROUTE .COMPLEX RF: 0 Levemir FlexTouch U-100 Insuln 100 unit/mL (3 mL) Insulin Pen 30 unit SUBCUT BID RF: 0 aspirin [Aspirin Low Dose] 81 mg Tablet,Delayed Release (Dr/Ec) 81 mg PO DAILY RF: 0 alprazolam [Xanax] 0.5 mg Tablet 0.5 mg PO BEDTIME RF: 0 ondansetron 4 mg tablet,disintegrating 4 mg PO Q6H PRN (Reason: nausea and vomiting) Qty: 14 RF: 0 Discharge Orders: Discharge Order (Routine); Ordered 06/11/20 Ordered By: Balbir Patiño Referrals: Cezar Segura MD [Primary Care Provider] - 4-7 days Discharge Diet: Usual diet Discharge Activity: Increase activity as tolerated Patient Instructions: Diabetic Neuropathy Activity Restrictions/Additional Instructions: Return for any new or worsening symptoms. Follow-up with your pain care provider as soon as he can to get a refill of your pain medications and to get back on your regular scheduled. Take the pain medicine I prescribed as needed. Discharge Date/Time: 06/11/20 18:54 Coding Level of Care Code ED Machine Cutter for Pascual Smith
[2020-06-11] MEDS: TRAMadol 50 mg Tablet PO (18:50)
[2020-06-11 18:51] VITALS: BP 166/107; PULSE 90; RESP 20; TEMP 36.8; O2SAT 96
== END 2020-06-11 18:54 | disposition home or self-care (01) ==
PROVIDERS: Emergency Provider Family Medicine; PCP Family Medicine
DX: E11.40 Type 2 diabetes mellitus with diabetic neuropathy, unspecified (principal); Z79.4 Long term (current) use of insulin; Z79.82 Long term (current) use of aspirin; F17.210 Nicotine dependence, cigarettes, uncomplicated
CPT/HCPCS: 12345; 99281; 99283

== ENCOUNTER 2020-07-28 13:56 | Emergency (ER) | payer SELFPAY ==
--- NOTE | 2020-07-28 13:58 | ECG_ITS ---
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 Measurements Intervals [place] Rate: 78 P: 39 WV: 172 QRS: 62 QRSD: 98 T: 54 QT: 360 QTc: 411 Interpretive Statements SINUS RHYTHM Compared to ECG 12/20/2019 19:41:15 No significant changes Electronically Signed On 07-29-2020 20:29:36 CDT by Ricardo Andrea M.D. [id number]
--- NOTE | 2020-07-28 13:58 | XRR_ITS ---
PROCEDURE INFORMATION: Exam: XR Chest, 1 View Exam date and time: 07/28/2020 1:59 PM Age: 54 years old Clinical indication: Chest pain; Additional info: Cp TECHNIQUE: Imaging protocol: XR of the chest Views: 1 view. COMPARISON: CR XR chest 2V* [id number] 02/08/2020 8:27 AM FINDINGS: Lungs: Unremarkable. No consolidation. Pleural space: Unremarkable. No pleural effusion. No pneumothorax. Heart/Mediastinum: Unremarkable. No cardiomegaly. Bones/joints: Moderate right acromioclavicular arthropathy. XR/XR chest 1V portable [id number] IMPRESSION: No acute findings.
[2020-07-28 14:11] VITALS: BMI 27.7
[2020-07-28 14:22] LABS: Glucose Point of Care 240 mg/dL (70-110)
[2020-07-28 14:27] VITALS: BP 140/88; PULSE 83; RESP 14; O2SAT 97
--- NOTE | 2020-07-28 14:28 | ED_ITS ---
HPI - Chest Pain General: Chief Complaint: Chest Pain Stated Complaint: CP Time Seen by Provider: 07/28/20 14:17 Source: patient Mode of arrival: ambulatory Limitations: no limitations History of Present Illness: HPI narrative: 54-year-old male states that roughly 1 hour ago he states that the pain was a pressure pain last about 10 minutes. He states he is currently pain-free and feels much improved. He had a stress test and a cath last year that were normal. He denies any worsening improving factors. Denies any fever. Denies cough Associated symptoms: Deny abdominal pain, dyspnea, fever(s), nausea or vomiting Review of Systems Const: Denies: fever(s), chills, body aches or change in appetite Eyes: Denies: blurry vision or eye discomfort ENMT: Denies: throat pain or dental pain Card: Reports: chest pain Resp: Denies: dyspnea GI: Denies: abdominal pain, nausea, vomiting or diarrhea : Denies: dysuria Musc: Denies: neck pain or back pain Skin/Breast: Denies: rash Neuro: Denies: headache(s) Psych: Denies: depression Derick/Lymph: Denies: easy bruising All/Imm: Denies: urticaria PFSH ED PFSH: Medical History Encounter for long-term opiate analgesic use Erectile dysfunction Family History Father COPD (chronic obstructive pulmonary disease) Hypertension Hyperlipidemia Mother , at age 65 Hypertension Hyperlipidemia COPD (chronic obstructive pulmonary disease) Social History Smoking and tobacco status: current every day smoker cigarettes Second hand smoke exposure: No Alcohol intake: never Marital status: Current occupational status: employed History of recent travel: No Physical Exam Const: COMMON NORMALS: no acute distress, patient oriented x3 and healthy appearing HENMT: COMMON NORMALS: normocephalic and atraumatic HEAD & SCALP: normocephalic and atraumatic Eye: COMMON NORMALS: Equal, round and reactive pupils present and EOMs intact bilaterally PUPIL: Yes Equal, round and reactive pupils present Neck/C-Spine: COMMON NORMALS: full ROM and supple Chest: COMMONS NORMALS: normal inspection of the chest and normal palpation of entire chest wall Resp: COMMON NORMALS: normal respiratory effort, No retractions, No use of accessory muscles and clear to auscultation bilaterally AUSCULTATION: clear to auscultation bilaterally Cardio: COMMON NORMALS: regular rate, regular rhythm and No murmurs present (Cardio) RATE: regular rate RHYTHM: regular rhythm GI: COMMON NORMALS: Normal to inspection, nondistended, normoactive bowel sounds present, Soft to palpation, non-tender and no masses PALPATION: Yes Soft to palpation Extremity: COMMON NORMALS: normal to inspection and full ROM Neuro: COMMON NORMALS: patient oriented x3, moves all extremities and no focal motor deficits Psych: COMMON NORMALS: mental status grossly normal, Normal thought process present and cooperative THOUGHT PROCESS: Normal thought process present Skin: COMMON NORMALS: no rashes or lesions noted and no wounds GENERAL SKIN EXAM: no rashes or lesions noted Course Vital Signs: Vital signs: Vital Signs Pulse Rate 73 07/28/20 15:37 Respiratory Rate 18 07/28/20 16:45 Blood Pressure 122/84 07/28/20 16:45 Pulse Oximetry 99 07/28/20 16:45 MDM - Chest Pain MDM Narrative: Medical decision making narrative: Patient presents here with chest pain that is atypical in nature. Patient's initial repeat troponin here negative. He is to follow-up with PCP and have an outpatient stress test. He has no signs of acute coronary syndrome. He has no signs of pulmonary bruising. He is to return if worsening. Lab Data: Labs: Lab Results 07/28/20 07/28/20 07/28/20 Range/Units 14:18 14:26 14:26 WBC 9.3 (4.0-10.0) 10^3/ uL RBC 5.09 (4.1-5.3) 10^6/u L Hgb 15.1 (11.7-16.6) g/dL Hct 45.3 (42.0-52.0) % MCV 89.0 (80-94) fL MCH 29.7 (28.0-34.0) pg MCHC 33.3 (30.0-36.0) g/dL RDW 12.3 (12.1-15.1) % Plt Count 211 (130-400) 10^3/c mm MPV 10.1 (7.4-10.4) fL Neut % (Auto) 67.4 % Lymph % (Auto) 22.6 % Perkins % (Auto) 6.4 % Eos % (Auto) 2.7 % Baso % (Auto) 0.6 % Neut # (Auto) 6.28 (1.8-7.7) 10^3/u L Lymph # (Auto) 2.1 (0.8-4.8) 10^3/u L Perkins # (Auto) 0.6 (0.2-0.9) 10^3/u L Eos # (Auto) 0.3 (0.0-0.8) 10^3/u L Baso # (Auto) 0.1 (0.0-0.1) 10^3/u L Nucleated RBC % (a uto) 0 % Nucleated RBCs # 0.0 /100WBC Sodium 134 L (136-145) mmol/L Potassium 4.5 (3.5-5.1) mmol/L Chloride 102 (98-107) mmol/L Carbon Dioxide 22 (22-29) mmol/L Anion Gap 14.5 (5-19) BUN 25 H (6-20) mg/dL Creatinine 1.0 (0.7-1.2) mg/dL GFR Calculation 77.6 L (90-130) mL/min Glucose 264 H (65-115) mg/dL POC Glucose 240 (70-110) mg/dL Calculated Osmolal ity 292 (285-295) mOsm/k g Calcium 9.5 (8.5-10.5) mg/dL Total Bilirubin 0.3 (0.15-1.2) mg/dL AST 23 (0-40) U/L ALT 28 (0-41) U/L Alkaline Phosphata se 70 (40-130) IU/L Troponin T Baselin e (0-15) ng/L Troponin T 120 Min franco (0-15) ng/L Total Protein 7.0 (6.6-8.7) g/dL Albumin 4.0 (3.5-5.2) g/dL Globulin 3.0 (1.3-4.6) g/dL 07/28/20 07/28/20 Range/Units 14:26 16:32 WBC (4.0-10.0) 10^3/ uL RBC (4.1-5.3) 10^6/u L Hgb (11.7-16.6) g/dL Hct (42.0-52.0) % MCV (80-94) fL MCH (28.0-34.0) pg MCHC (30.0-36.0) g/dL RDW (12.1-15.1) % Plt Count (130-400) 10^3/c mm MPV (7.4-10.4) fL Neut % (Auto) % Lymph % (Auto) % Perkins % (Auto) % Eos % (Auto) % Baso % (Auto) % Neut # (Auto) (1.8-7.7) 10^3/u L Lymph # (Auto) (0.8-4.8) 10^3/u L Perkins # (Auto) (0.2-0.9) 10^3/u L Eos # (Auto) (0.0-0.8) 10^3/u L Baso # (Auto) (0.0-0.1) 10^3/u L Nucleated RBC % (a uto) % Nucleated RBCs # /100WBC Sodium (136-145) mmol/L Potassium (3.5-5.1) mmol/L Chloride (98-107) mmol/L Carbon Dioxide (22-29) mmol/L Anion Gap (5-19) BUN (6-20) mg/dL Creatinine (0.7-1.2) mg/dL GFR Calculation (90-130) mL/min Glucose (65-115) mg/dL POC Glucose (70-110) mg/dL Calculated Osmolal ity (285-295) mOsm/k g Calcium (8.5-10.5) mg/dL Total Bilirubin (0.15-1.2) mg/dL AST (0-40) U/L ALT (0-41) U/L Alkaline Phosphata se (40-130) IU/L Troponin T Baselin e 8 (0-15) ng/L Troponin T 120 Min franco 6.97 (0-15) ng/L Total Protein (6.6-8.7) g/dL Albumin (3.5-5.2) g/dL Globulin (1.3-4.6) g/dL Imaging Data^: CXR: Attestation: I personally reviewed and interpreted this imaging study as follows: Radiologist's impression: [address] [address] XRay Report Signed Patient: Sal Timmons Unit #: [id number] : 1965 Age/Sex: 54 / M ADM Date: 07/28/20 Loc: ER Room/Bed: Attending Dr: Ordering Provider/Ordering MD: Rani Savage MD Date of Service: 07/28/20 Procedure(s): XR chest 1V portable [id number] Accession Number(s): [id number] Report Number: [id number] PROCEDURE INFORMATION: Exam: XR Chest, 1 View Exam date and time: 07/28/2020 1:59 PM Age: 54 years old Clinical indication: Chest pain; Additional info: Cp TECHNIQUE: Imaging protocol: XR of the chest Views: 1 view. COMPARISON: CR XR chest 2V* [id number] 02/08/2020 8:27 AM FINDINGS: Lungs: Unremarkable. No consolidation. Pleural space: Unremarkable. No pleural effusion. No pneumothorax. Heart/Mediastinum: Unremarkable. No cardiomegaly. Bones/joints: Moderate right acromioclavicular arthropathy. XR/XR chest 1V portable [id number] IMPRESSION: No acute findings. EKG Data^: EKG 1: Attestation: I personally reviewed and interpreted this EKG as follows: EKG interpretation date: 07/28/20 EKG interpretation time: 14:22 Interpretation: nsr hr [address] or t wave abnormalities qrs 98 qtc 393 Discharge Plan Discharge Patient Disposition: Home Clinical Impression: Chest pain Qualifiers: Chest pain type: unspecified Qualified Code(s): R07.9 - Chest pain, unspecified Condition: Stable Prescriptions: No Action metformin 500 mg Tablet 500 mg PO BID RF: 0 glipizide 10 mg Tablet 10 mg PO DAILY RF: 0 insulin aspart U-100 [Novolog Flexpen U-100 Insulin] 100 unit/mL (3 mL) Insulin Pen See Rx Instructions .ROUTE .COMPLEX RF: 0 Levemir FlexTouch U-100 Insuln 100 unit/mL (3 mL) Insulin Pen 30 unit SUBCUT BID RF: 0 aspirin [Aspirin Low Dose] 81 mg Tablet,Delayed Release (Dr/Ec) 81 mg PO DAILY RF: 0 alprazolam [Xanax] 0.5 mg Tablet 0.5 mg PO BEDTIME RF: 0 ondansetron 4 mg tablet,disintegrating 4 mg PO Q6H PRN (Reason: nausea and vomiting) Qty: 14 RF: 0 tramadol 50 mg tablet 50 mg PO Q8H PRN (Reason: pain) Qty: 12 RF: 0 Discharge Orders: Discharge Order (Routine); Ordered 07/28/20 Ordered By: Rani Savage Referrals: Cezar Segura MD [Primary Care Provider] - 1-3 days Discharge Diet: Advance as tolerated Discharge Activity: Resume usual activity Patient Instructions: Chest Pain (ED) Coding Level of Care Code ED 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
[2020-07-28 14:32] LABS: Basophils # 0.1 10^3/uL (0.0-0.1); Basophils % 0.6 %; Eosinophils # 0.3 10^3/uL (0.0-0.8); Eosinophils % 2.7 %; Hematocrit 45.3 % (42.0-52.0); Hemoglobin 15.1 g/dL (11.7-16.6); Lymphocytes # 2.1 10^3/uL (0.8-4.8); Lymphocytes % 22.6 %; Mean Corpuscular HGB Conc 33.3 g/dL (30.0-36.0); Mean Corpuscular Hemoglobin 29.7 pg (28.0-34.0); Mean Platelet Volume 10.1 fL (7.4-10.4); Monocytes # 0.6 10^3/uL (0.2-0.9); Monocytes % 6.4 %; Neutrophils # 6.28 10^3/uL (1.8-7.7); Neutrophils % 67.4 %; Nucleated Red Blood Cells % 0 %; Platelet Count 211 10^3/cmm (130-400); Red Blood Count 5.09 10^6/uL (4.1-5.3); Red Cell Distribution Width 12.3 % (12.1-15.1); White Blood Count 9.3 10^3/uL (4.0-10.0)
[2020-07-28 14:57] LABS: Alanine Aminotransferase 28 U/L (0-41); Alkaline Phosphatase 70 IU/L (40-130); Anion Gap 14.5 (5-19); Aspartate Amino Transferase 23 U/L (0-40); Blood Urea Nitrogen 25 mg/dL (6-20); Calcium 9.5 mg/dL (8.5-10.5); Carbon Dioxide 22 mmol/L (22-29); Chloride 102 mmol/L (98-107); Creatinine Clr Calc Pharmacy 101.5769; Glomerular Filtration Rate 77.6 mL/min (90-130); Glucose 264 mg/dL (65-115); Osmolality Calculated 292 mOsm/kg (285-295); Potassium 4.5 mmol/L (3.5-5.1); Sodium 134 mmol/L (136-145); Total Bilirubin 0.3 mg/dL (0.15-1.2)
[2020-07-28 14:58] LABS: Troponin(5th) Baseline 8 ng/L (0-15)
[2020-07-28 15:37] VITALS: BP 127/66; PULSE 73; RESP 18; O2SAT 95
[2020-07-28 16:45] VITALS: BP 122/84; RESP 18; O2SAT 99
[2020-07-28 17:05] LABS: Troponin 5 2HR 6.97 ng/L (0-15)
[2020-07-28 17:20] VITALS: BP 132/88; PULSE 76; RESP 16; O2SAT 99
[2020-07-28 17:56] LABS: Troponin 5 2HR Delta -1.03 ABS# (0-10)
== END 2020-07-28 17:20 | disposition home or self-care (01) ==
PROVIDERS: Emergency Provider Emergency Medicine; PCP Family Medicine
DX: R07.9 Chest pain, unspecified (principal); Z79.4 Long term (current) use of insulin; Z79.82 Long term (current) use of aspirin; F17.210 Nicotine dependence, cigarettes, uncomplicated
CPT/HCPCS: 12345; 36415; 36416; 71045; 80053; 82962; 84484; 85025; 93005; 99283

== ENCOUNTER → 2020-11-27 08:35 | Outpatient (BNVA) | payer OTHER, SELFPAY | PROVIDERS: PCP Family Medicine; Referring Provider Family Medicine; Visit Provider Anesthesiology Pain Medicine | DX: M48.062 Spinal stenosis, lumbar region with neurogenic claudication (principal); M47.816 Spondylosis without myelopathy or radiculopathy, lumbar region; M51.36 Other intervertebral disc degeneration, lumbar region; M19.012 Primary osteoarthritis, left shoulder; M25.511 Pain in right shoulder; F17.210 Nicotine dependence, cigarettes, uncomplicated; Z79.891 Long term (current) use of opiate analgesic | CPT/HCPCS: 99205 ==

== ENCOUNTER 2020-11-30 11:06 | Outpatient (CLI) | payer OTHER, SELFPAY ==
--- NOTE | 2020-11-30 11:20 | XR_ITS ---
WS: [id number] LUMBAR SPINE FLEXION AND EXTENSION TECHNIQUE: 3 views of the lumbar spine: Lateral neutral, flexion, and extension views. CLINICAL INFORMATION: M47.816 - Spondylosis without myelopathy or radiculopathy, lumbar region COMPARISON: None. FINDINGS: Normal lumbar alignment on the neutral view. Mild disc space narrowing L4-L5 and L5-S1. Chronic anter ior wedging at T12 and L1. No instability on flexion-extension. Moderate facet arthropathy L5-S1. Aor tic calcification. XR/XR lumbar spine f/e only [id number] IMPRESSION: No instability on flexion extension.
--- NOTE | 2020-11-30 11:20 | XR_ITS ---
WS: [id number] SHOULDER RIGHT TECHNIQUE: 3 views of the right shoulder CLINICAL INFORMATION: M19.90 - Unspecified osteoarthritis, unspecified site COMPARISON: None. FINDINGS: Mild degenerative arthritis at the AC joint with hypertrophic changes. Moderate narrowing of the suba cromial space. No clavicular fractures. Moderate degenerative narrowing at the glenohumeral joint wit h slight hypertrophic spurring along the inferior glenoid. XR/XR shoulder RT min 2V* [id number] IMPRESSION: 1. Mild degenerative arthritis at the AC joint. 2. Moderate rotator cuff arthropathy with narrowing of the subacromial space. 3. Moderate degenerative arthritis glenohumeral joint with slight glenoid hype rtrophic spurring.
== END 2020-11-30 11:07 | disposition home or self-care (01) ==
LOC: WPI 11:08
PROVIDERS: PCP Family Medicine; Visit Provider Anesthesiology Pain Medicine
DX: M19.012 Primary osteoarthritis, left shoulder (principal); F17.210 Nicotine dependence, cigarettes, uncomplicated; M19.90 Unspecified osteoarthritis, unspecified site
CPT/HCPCS: 20610; 72120; 73030; J1030; J3490

== ENCOUNTER → 2020-12-17 13:23 | Outpatient (BNVA) | payer OTHER, SELFPAY | PROVIDERS: PCP Family Medicine; Visit Provider Nurse Practitioner Family | DX: Z20.828 Contact with and (suspected) exposure to other viral communicable diseases (principal) | CPT/HCPCS: 87635 ==

== ENCOUNTER → 2021-01-09 09:41 | Outpatient (BNVA) | payer OTHER, SELFPAY | PROVIDERS: PCP Family Medicine; Visit Provider Anesthesiology Pain Medicine | DX: M19.90 Unspecified osteoarthritis, unspecified site (principal); M48.062 Spinal stenosis, lumbar region with neurogenic claudication; M51.36 Other intervertebral disc degeneration, lumbar region; M25.511 Pain in right shoulder; M25.512 Pain in left shoulder; F17.210 Nicotine dependence, cigarettes, uncomplicated; Z79.891 Long term (current) use of opiate analgesic | CPT/HCPCS: 99214 ==

== ENCOUNTER → 2021-01-23 15:26 | Outpatient (BNVA) | payer OTHER, SELFPAY | PROVIDERS: PCP Family Medicine; Referring Provider Anesthesiology Pain Medicine; Visit Provider Specialist | DX: M19.011 Primary osteoarthritis, right shoulder (principal); M25.511 Pain in right shoulder | CPT/HCPCS: 73030 ==

== ENCOUNTER → 2021-02-06 09:43 | Outpatient (BNVA) | payer OTHER, SELFPAY | PROVIDERS: PCP Family Medicine; Visit Provider Anesthesiology Pain Medicine | DX: M48.062 Spinal stenosis, lumbar region with neurogenic claudication (principal); M51.36 Other intervertebral disc degeneration, lumbar region; M19.011 Primary osteoarthritis, right shoulder; M19.012 Primary osteoarthritis, left shoulder; Z79.891 Long term (current) use of opiate analgesic | CPT/HCPCS: 99214 ==

== ENCOUNTER → 2021-03-11 10:47 | Outpatient (BNVA) | payer OTHER, SELFPAY | PROVIDERS: PCP Family Medicine; Visit Provider Anesthesiology Pain Medicine | DX: M48.062 Spinal stenosis, lumbar region with neurogenic claudication (principal); M51.36 Other intervertebral disc degeneration, lumbar region; M25.511 Pain in right shoulder; M25.512 Pain in left shoulder; M19.011 Primary osteoarthritis, right shoulder; F17.210 Nicotine dependence, cigarettes, uncomplicated; Z79.891 Long term (current) use of opiate analgesic | CPT/HCPCS: 99214 ==

== ENCOUNTER → 2021-04-17 07:57 | Outpatient (BNVA) | payer OTHER, SELFPAY | PROVIDERS: PCP Family Medicine; Visit Provider Urology | DX: R39.9 Unspecified symptoms and signs involving the genitourinary system (principal); M48.062 Spinal stenosis, lumbar region with neurogenic claudication; M51.36 Other intervertebral disc degeneration, lumbar region; N52.1 Erectile dysfunction due to diseases classified elsewhere; E11.9 Type 2 diabetes mellitus without complications | CPT/HCPCS: 81003 ==

== ENCOUNTER → 2022-03-06 10:19 | Outpatient (BNVA) | payer MEDICAID, SELFPAY | PROVIDERS: PCP Family Medicine; Referring Provider Family Medicine; Visit Provider Surgery | DX: Z12.11 Encounter for screening for malignant neoplasm of colon (principal) ==

== ENCOUNTER → 2022-06-16 15:06 | Outpatient (BNVA) | payer BC, MEDICAID, SELFPAY | PROVIDERS: PCP Family Medicine; Visit Provider Family Medicine | DX: Z51.81 Encounter for therapeutic drug level monitoring (principal); E11.9 Type 2 diabetes mellitus without complications; Z13.220 Encounter for screening for lipoid disorders; M54.12 Radiculopathy, cervical region; M48.062 Spinal stenosis, lumbar region with neurogenic claudication | CPT/HCPCS: 80053; 80061; 83036; 85025 ==

== ENCOUNTER 2022-07-30 15:02 | Outpatient (CLI) | payer BC, MEDICAID, SELFPAY ==
--- NOTE | 2022-07-30 15:20 | XR_ITS ---
WS: [id number] XR lumbar spine 2-3V* [id number] REASON FOR EXAM: Lumbar pain FINDINGS: Significant rotatory scoliosis convex left. Straightening of the normal lordosis of the lumbar spine. No significant focal vertebral body abnormality. Moderate narrowing of the L2-L3 disc space and the L5-S1 disc space. Moderate osteophytosis of the lumbar vertebrae L2-S1. No spondylolysis. 3 mm of anterolisthesis of L3 in relation to L2. 5 mm of anterolisthesis of L3 in relation to L4. 3 mm of anterolisthesis of L5 in relation to L4. Moderate degenerative changes in the facet joints L3-S1. XR/XR lumbar spine 2-3V* [id number] IMPRESSION: Degenerative spondylosis of the lumbar spine relatively unchanged compared to .
== END 2022-07-30 15:03 | disposition home or self-care (01) ==
PROVIDERS: PCP Family Medicine; Visit Provider Registered Nurse Neonatal Intensive Care
DX: M47.896 Other spondylosis, lumbar region (principal); M54.50 Low back pain, unspecified; M79.605 Pain in left leg
CPT/HCPCS: 72100

== ENCOUNTER 2022-08-11 11:36 | Emergency (ER) | payer BC, MEDICAID, SELFPAY ==
[2022-08-11 11:37] VITALS: BP 174/98; PULSE 90; RESP 18; TEMP 36.8; O2SAT 96; BMI 29.0
--- NOTE | 2022-08-11 11:39 | ED_ITS ---
HPI - Chest Pain General: Chief Complaint: General Medical Stated Complaint: chest pain/ dizziness Time Seen by Provider: 08/11/22 11:39 History of Present Illness: Mr. Timmons is a 56-year-old gentleman with significant past medical history of tobaccoism, diabetes [facility] to chest discomfort and shortness of breath. He reports symptom onset at rest and was sudden without known specific provoking factor though he did endorse drinking an energy drink earlier. He describes an abnormal heaviness in the center of his chest and a head lara. Most of the symptoms have resolved however he still has aching in the left anterior chest. Denies frequent history of similar. Intensity symptoms is currently mild though at worst was moderate to severe. No other specific changes in health, exacerbating, or alleviating factors identified. Onset (ago): hour(s) Timing of current episode: now resolved Prior episodes: No Onset: during rest Pain location: substernal Pain radiation: none Severity: moderate Quality: tightness and aching Associated symptoms: Reports nausea and other Review of Systems General: Reports: 10 or more systems reviewed and unremarkable except in HPI and below GI: Reports: nausea PFSH ED PFSH: Medical History Encounter for long-term opiate analgesic use Erectile dysfunction Family History Father , at age 77 COPD (chronic obstructive pulmonary disease) Hypertension Hyperlipidemia Mother , at age 65 Hypertension Hyperlipidemia COPD (chronic obstructive pulmonary disease) Social History Smoking and tobacco status: current every day smoker cigarettes Second hand smoke exposure: No Alcohol intake: never Marital status: Current occupational status: employed History of recent travel: No Physical Exam Const: COMMON NORMALS: alert GENERAL APPEARANCE: cooperative and well developed HENMT: COMMON NORMALS: normocephalic and atraumatic HEAD & SCALP: normocephalic and atraumatic Eye: COMMON NORMALS: conjunctivae normal CONJUNCTIVA: Yes conjunctivae normal SCLERA: sclerae normal Neck/C-Spine: COMMON NORMALS: supple GENERAL: Yes trachea midline Resp: COMMON NORMALS: clear to auscultation bilaterally EFFORT & INSPECTION: Yes able to speak in complete sentences AUSCULTATION: clear to auscultation bilaterally Cardio: COMMON NORMALS: regular rate and regular rhythm RATE: regular rate RHYTHM: regular rhythm GI: COMMON NORMALS: Soft to palpation PALPATION: Yes Soft to palpation and No Tenderness to palpation present (GI) Extremity: GENERAL: Yes normal exam except as noted and No edema Neuro: COMMON NORMALS: moves all extremities SENSORIUM/ORIENTATION: Yes alert and No Orientation impaired Psych: COMMON NORMALS: mental status grossly normal and Normal thought process present THOUGHT PROCESS: Normal thought process present Course Vital Signs: Vital signs: Vital Signs Temperature 98.3 F 08/11/22 11:37 Pulse Rate 90 08/11/22 11:37 Respiratory Rate 18 08/11/22 11:37 Blood Pressure 174/98 08/11/22 11:37 Pulse Oximetry 96 08/11/22 11:37 Oxygen Delivery Me thod 08/11/22 11:37 MDM - Chest Pain Medical Decision Making 56-year-old gentleman presenting with chest pain. Patient is nontoxic on exam. EKG shows sinus rhythm, no STEMI. Laboratory studies notable for no leukocytosis or other significant hematologic or metabolic abnormality requiring intervention. Delta troponin is negative. Chest x-ray with no lobar consolidation or pneumothorax. Most likely etiology of patient's symptoms is chest pain, unspecified. The results of ED evaluation were discussed with the patient including possible disposition options. I discussed risk stratification by heart score and estimated risk of major adverse cardiac events. The patient wishes to proceed with outpatient management. I discussed prescriptions and/or symptomatic cares (if applicable) including appropriate and responsible use, followup plan, and return precautions. The patient verbalized understanding and felt safe for discharge. Medical Records I reviewed the patient's medical records. Lab Data I reviewed the patient's lab results. : 08/11/22 11:47 08/11/22 11:47 Radiology Impressions Chest X-Ray 08/11/22 11:51 IMPRESSION: No acute abnormality. Laboratory Results WBC 9.9 10^3/uL (4.0-10.0) 08/11/22 11:47 RBC 5.09 10^6/uL (4.1-5.3) 08/11/22 11:47 Hgb 15.4 g/dL (11.7-16.6) 08/11/22 11:47 Hct 45.8 % (42.0-52.0) 08/11/22 11:47 MCV 90.0 fl (80-94) 08/11/22 11:47 MCH 30.3 pg (28.0-34.0) 08/11/22 11:47 MCHC 33.6 g/dL (30.0-36.0) 08/11/22 11:47 RDW 12.2 % (12.1-15.1) 08/11/22 11:47 Plt Count 225 10^3/cmm (130-400) 08/11/22 11:47 MPV 10.3 fL (7.4-10.4) 08/11/22 11:47 Neut % (Auto) 70.4 % 08/11/22 11:47 Lymph % (Auto) 20.1 % 08/11/22 11:47 Wood % (Auto) 6.0 % 08/11/22 11:47 Eos % (Auto) 2.5 % 08/11/22 11:47 Baso % (Auto) 0.6 % 08/11/22 11:47 Neut # (Auto) 6.98 10^3/uL (1.8-7.7) 08/11/22 11:47 Lymph # (Auto) 2.0 10^3/uL (0.8-4.8) 08/11/22 11:47 Wood # (Auto) 0.6 10^3/uL (0.2-0.9) 08/11/22 11:47 Eos # (Auto) 0.3 10^3/uL (0.0-0.8) 08/11/22 11:47 Baso # (Auto) 0.1 10^3/uL (0.0-0.1) 08/11/22 11:47 Nucleated RBC % (auto) 0 % 08/11/22 11:47 Nucleated RBCs # 0.0 /100WBC 08/11/22 11:47 Sodium 134 mmol/L (136-145) L 08/11/22 11:47 Potassium 4.3 mmol/L (3.5-5.1) 08/11/22 11:47 Chloride 99 mmol/L (98-107) 08/11/22 11:47 Carbon Dioxide 25 mmol/L (22-29) 08/11/22 11:47 Anion Gap 14.3 (5-19) 08/11/22 11:47 BUN 17 mg/dL (6-20) 08/11/22 11:47 Creatinine 0.8 mg/dL (0.7-1.2) 08/11/22 11:47 GFR Calculation 99.6 mL/min (90-130) 08/11/22 11:47 Glucose 147 mg/dL (65-115) H 08/11/22 11:47 Calculated Osmolality 282 mOsm/kg (285-295) L 08/11/22 11:47 Calcium 9.2 mg/dL (8.5-10.5) 08/11/22 11:47 Total Bilirubin 0.3 mg/dL (0.15-1.2) 08/11/22 11:47 AST 17 U/L (0-40) 08/11/22 11:47 ALT 30 U/L (0-41) 08/11/22 11:47 Alkaline Phosphatase 72 U/L (40-130) 08/11/22 11:47 Troponin T Baseline 8 ng/L (0-15) 08/11/22 11:47 Troponin T 120 Minute 7.94 ng/L (0-15) 08/11/22 13:52 Delta Troponin T -0.06 ABS# (0-10) L 08/11/22 13:52 NT-Pro-B Natriuret Pep 50 pg/mL (0-125) 08/11/22 11:47 Total Protein 7.4 g/dL (6.6-8.7) 08/11/22 11:47 Albumin 4.1 g/dL (3.5-5.2) 08/11/22 11:47 Globulin 3.3 g/dL (1.3-4.6) 08/11/22 11:47 Lipase 18 U/L (13-60) 08/11/22 11:47 TSH 1.70 uIU/mL (0.27-4.20) 08/11/22 11:47 Discharge Plan Discharge Patient Disposition: Home Clinical Impression: Chest pain Condition: Stable Prescriptions: No Action ibuprofen 200 mg tablet 800 mg PO .2-3 day PRN (Reason: Pain) insulin aspart U-100 [Novolog Flexpen U-100 Insulin] 100 unit/mL (3 mL) insulin pen 10 unit SUBCUT TID PRN (Reason: diabetes) Qty: 15 11RF tramadol 50 mg tablet 50 mg PO Q6H (DME) trimix injection 0 .Route .MEDSUPPLY Levemir FlexTouch U-100 Insuln 100 unit/mL (3 mL) insulin pen 60 unit SUBCUT BID Qty: 60 9RF cyclobenzaprine 10 mg tablet 10 mg PO TID PRN (Reason: muscle spasm) Qty: 60 0RF simvastatin 10 mg tablet 10 mg PO DAILY Qty: 30 6RF albuterol sulfate [ProAir HFA] 90 mcg/actuation HFA aerosol inhaler 2 puff inhalation Q4H PRN (Reason: shortness of breath or wheezing) Qty: 8.5 6RF Paxlovid (EUA) 150 mg x 2- 100 mg tablet See Rx Instructions PO .COMPLEX Qty: 30 0RF Rx Instructions: take TWO 150 mg tablets of nirmatrelvir with ONE 100 mg tablet of ritonavir twice daily for 5 days orally; mupirocin 2 % ointment 1 applic topical BID Qty: 15 2RF (DME) blood-glucose meter [OneTouch Ultra2 Meter] Kit See Rx Instructions .Route Qty: 1 0RF Rx Instructions: As directed metformin 500 mg Tablet 500 mg PO BID Discharge Orders: Discharge ED (Routine); Ordered 08/11/22 Ordered By: Wander Hurst Referrals: Cezar Segura MD [Primary Care Provider] - Discharge Diet: Usual diet Discharge Activity: Increase activity as tolerated Patient Instructions: Chest Pain (ED) Activity Restrictions/Additional Instructions: Thank you for visiting the emergency department. You were seen and evaluated for an episode of chest pain. The exact cause of the symptoms is unclear though as discussed I do believe that you require further cardiac evaluation. I will message case management for outpatient testing. Please follow-up with a primary care provider. Return to the emergency department for recurrent or worsening symptoms, or anything else that you are concerned about and feel needs emergency department evaluation. 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
--- NOTE | 2022-08-11 11:51 | XRR_ITS ---
PROCEDURE INFORMATION: Exam: XR Chest Exam date and time: 08/11/2022 12:00 PM Age: 56 years old Clinical indication: Pain; Left-sided and other: Heaviness; Patient HX: Chest discomfort and shortness of breath. He reports symptom onset at rest and was sudden without known specific provoking factor though he did endorse drinking an energy drink earlier. He describes an abnormal heaviness in the center of his chest and a head lara. Most of the symptoms have resolved however he still has aching in the left anterior chest. ; Additional info: Cp TECHNIQUE: Imaging protocol: Radiologic exam of the chest. Views: 1 view. COMPARISON: CR XR chest 1V portable [id number] 07/28/2020 2:52 PM FINDINGS: Lungs: There is a tiny benign calcified granuloma in the right mid lung zone. Otherwise lungs are clear. Pleural spaces: Unremarkable. No pleural effusion. No pneumothorax. Heart/Mediastinum: Unremarkable. No cardiomegaly. Bones/joints: Unremarkable. XR/XR chest 1V portable [id number] IMPRESSION: No acute abnormality.
--- NOTE | 2022-08-11 11:51 | ECG_ITS ---
[facility] Test Date: 2022-08-11 Pat Name: Sal Timmons Department: Room: Gender: Male Devops Solutions Architect: : 1965 Requested By: Wander Hurst Order Number: [id number] Rob MD: Ricardo Andrea M.D. Measurements Intervals [place] Rate: 85 P: 64 [place]: 174 QRS: 69 QRSD: 98 T: 69 QT: 342 QTc: 407 Interpretive Statements SINUS RHYTHM Compared to ECG 07/28/2020 14:22:39 No significant changes Electronically Signed On 08-11-2022 17:17:18 CDT by Ricardo Andrea M.D. [id number] f
[2022-08-11 12:12] LABS: Basophils # 0.1 10^3/uL (0.0-0.1); Basophils % 0.6 %; Eosinophils # 0.3 10^3/uL (0.0-0.8); Eosinophils % 2.5 %; Hematocrit 45.8 % (42.0-52.0); Hemoglobin 15.4 g/dL (11.7-16.6); Lymphocytes % 20.1 %; Mean Corpuscular HGB Conc 33.6 g/dL (30.0-36.0); Mean Corpuscular Hemoglobin 30.3 pg (28.0-34.0); Mean Platelet Volume 10.3 fL (7.4-10.4); Monocytes # 0.6 10^3/uL (0.2-0.9); Neutrophils # 6.98 10^3/uL (1.8-7.7); Neutrophils % 70.4 %; Nucleated Red Blood Cells % 0 %; Platelet Count 225 10^3/cmm (130-400); Red Blood Count 5.09 10^6/uL (4.1-5.3); Red Cell Distribution Width 12.2 % (12.1-15.1); White Blood Count 9.9 10^3/uL (4.0-10.0)
[2022-08-11] MEDS: aspirin 81 mg Chew Tablet 324 MG PO (12:19)
[2022-08-11 12:31] LABS: Troponin(5th) Baseline 8 ng/L (0-15)
[2022-08-11 12:34] LABS: Alanine Aminotransferase 30 U/L (0-41); Albumin Level 4.1 g/dL (3.5-5.2); Alkaline Phosphatase 72 U/L (40-130); Anion Gap 14.3 (5-19); Aspartate Amino Transferase 17 U/L (0-40); Blood Urea Nitrogen 17 mg/dL (6-20); Calcium 9.2 mg/dL (8.5-10.5); Carbon Dioxide 25 mmol/L (22-29); Chloride 99 mmol/L (98-107); Globulin 3.3 g/dL (1.3-4.6); Glomerular Filtration Rate 99.6 mL/min (90-130); Glucose 147 mg/dL (65-115); Lipase 18 U/L (13-60); NT Pro B Type Natriuretic Pept 50 pg/mL (0-125); Osmolality Calculated 282 mOsm/kg (285-295); Potassium 4.3 mmol/L (3.5-5.1); Sodium 134 mmol/L (136-145); Total Bilirubin 0.3 mg/dL (0.15-1.2); Total Protein 7.4 g/dL (6.6-8.7)
--- NOTE | 2022-08-11 14:24 | ECG_ITS ---
[facility] Test Date: 2022-08-11 Pat Name: Sal Timmons Department: Room: Gender: Male Resident Services Manager: : 1965 Requested By: Wander Hurst Order Number: [id number] Rob MD: Ricardo Andrea M.D. Measurements Intervals [place] Rate: 79 P: 60 [place]: 174 QRS: 63 QRSD: 98 T: 62 QT: 358 QTc: 410 Interpretive Statements SINUS RHYTHM Compared to ECG 08/11/2022 11:56:09 No significant changes Electronically Signed On 08-11-2022 17:23:08 CDT by Ricardo Andrea M.D. [id number]
[2022-08-11 14:31] LABS: Troponin 5 2HR 7.94 ng/L (0-15)
[2022-08-11 15:05] LABS: Troponin 5 2HR Delta -0.06 ABS# (0-10)
--- NOTE | 2022-08-13 08:30 | DCPLANNER ---
Addendum entered by Shanda Espitia 10/16/22 10:57: Patient had a stress test scheduled - patient did not attend stress test Addendum entered by Shanda Espitia 09/18/22 08:02: Patient has a stress test scheduled for Thursday, October 13, 2022 at 11:30. Centralized scheduling will call patient with appointment information. Original Note: district manager major accounts sales had message to schedule an outpatient stress test for patient. district manager major accounts sales faxed signed order to centralized scheduling, who will call patient with appointment information. district manager major accounts sales also sent patients primary care physician, Dr. Segura, notification that a stress test was ordered by the ER physician.
== END 2022-08-11 15:29 | disposition home or self-care (01) ==
PROVIDERS: Emergency Provider Emergency Medicine; PCP Family Medicine
DX: R07.9 Chest pain, unspecified (principal); Z79.84 Long term (current) use of oral hypoglycemic drugs; Z79.4 Long term (current) use of insulin; F17.210 Nicotine dependence, cigarettes, uncomplicated
CPT/HCPCS: 36415; 71045; 80053; 83690; 83880; 84443; 84484; 85025; 93005; 99285

== ENCOUNTER → 2022-08-19 08:01 | Outpatient (BNVA) | payer BC, MEDICAID, SELFPAY | PROVIDERS: PCP Family Medicine; Visit Provider Orthopaedic Surgery | DX: M48.062 Spinal stenosis, lumbar region with neurogenic claudication (principal); M51.36 Other intervertebral disc degeneration, lumbar region | CPT/HCPCS: 72120 ==

== ENCOUNTER 2022-09-24 11:51 | Emergency (ER) | payer BC, MEDICAID, SELFPAY ==
[2022-09-24 11:57] VITALS: BP 116/83; PULSE 91; RESP 14; TEMP 36.5; O2SAT 96; BMI 28.8
--- NOTE | 2022-09-24 12:05 | ECG_ITS ---
[facility] Test Date: 2022-09-24 Pat Name: Sal Timmons Department: Room: Gender: Male Project Manager/Design Manager: : 1965 Requested By: Kings Gilmore Order Number: [id number] Rob MD: Ricardo Andrea M.D. Measurements Intervals [place] Rate: 87 P: 65 [place]: 163 QRS: 69 QRSD: 106 T: 70 QT: 343 QTc: 413 Interpretive Statements SINUS RHYTHM Compared to ECG 08/11/2022 14:24:39 No significant changes Electronically Signed On 09-24-2022 18:04:22 THROUGH OPERATOR by Ricardo Andrea M.D. [id number]
--- NOTE | 2022-09-24 12:25 | ED_ITS ---
HPI - Chest Pain General: Chief Complaint: Chest Pain Stated Complaint: chest pain Time Seen by Provider: 09/24/22 12:14 History of Present Illness: Patient comes in with chest pain. States that while sitting there this morning he developed tingling across his whole chest and arms then developed sharp chest pain across his entire chest. States it lasted for about 5 minutes and then resolved. States he had some shortness of breath and dizziness at the time also. States he is scheduled for a cardiac stress test in 3 weeks. Associated symptoms: Deny abdominal pain, dyspnea, fever(s), nausea, palpitations or vomiting Review of Systems Const: Denies: fever(s) or body aches Eyes: Denies: change in vision or blurry vision ENMT: Denies: throat pain or odynophagia Card: Reports: chest pain; Denies: palpitations Resp: Denies: dyspnea or productive cough GI: Denies: abdominal pain, nausea or vomiting : Denies: flank pain or dysuria Musc: Denies: neck pain or back pain Skin/Breast: Denies: rash or pruritus Neuro: Denies: headache(s) or numbness in extremities Psych: Denies: anxiety or change in appetite Endo: Denies: polyuria or excessive sweating PFSH ED PFSH: Medical History Encounter for long-term opiate analgesic use Erectile dysfunction Family History Father , at age 77 COPD (chronic obstructive pulmonary disease) Hypertension Hyperlipidemia Mother , at age 65 Hypertension Hyperlipidemia COPD (chronic obstructive pulmonary disease) Social History Smoking and tobacco status: current every day smoker cigarettes Second hand smoke exposure: No Alcohol intake: never Marital status: Current occupational status: employed History of recent travel: No Physical Exam Const: COMMON NORMALS: no acute distress, patient oriented x3, healthy appearing and alert HENMT: COMMON NORMALS: normocephalic and atraumatic HEAD & SCALP: normocephalic and atraumatic Eye: COMMON NORMALS: Equal, round and reactive pupils present and EOMs intact bilaterally PUPIL: Yes Equal, round and reactive pupils present Neck/C-Spine: COMMON NORMALS: full ROM and supple Resp: COMMON NORMALS: normal respiratory effort, No retractions and No use of accessory muscles Cardio: COMMON NORMALS: regular rate and regular rhythm RATE: regular rate RHYTHM: regular rhythm GI: COMMON NORMALS: Normal to inspection, nondistended, normoactive bowel sounds present, Soft to palpation and non-tender PALPATION: Yes Soft to palpation Back/Pelvis: COMMON NORMALS: thoracic and lumbar spine normal to inspection and no thoracic nor lumbar tenderness Extremity: COMMON NORMALS: normal to inspection and full ROM Neuro: COMMON NORMALS: patient oriented x3 SENSORIUM/ORIENTATION: Yes alert Psych: COMMON NORMALS: mental status grossly normal and cooperative Skin: COMMON NORMALS: no rashes or lesions noted and no wounds GENERAL SKIN EXAM: no rashes or lesions noted Course Vital Signs: Vital signs: Vital Signs Temperature 97.7 F 09/24/22 11:57 Pulse Rate 80 09/24/22 12:44 Respiratory Rate 14 09/24/22 12:44 Blood Pressure 153/79 09/24/22 12:44 Pulse Oximetry 91 09/24/22 12:44 Oxygen Delivery Me thod 09/24/22 12:44 MDM - Chest Pain Medical Decision Making Patient comes in with chest pain. States that while sitting there this morning he developed tingling across his whole chest and arms then developed sharp chest pain across his entire chest. States it lasted for about 5 minutes and then resolved. States he had some shortness of breath and dizziness at the time also. States he is scheduled for a cardiac stress test in 3 weeks. Physical exam is unremarkable. Will check labs, EKG, and reassess. On reassessment I talked to the patient about the test results. He is resting comfortably in a gurney. We will place a cardiac event monitor and have the results sent to his primary care physician. Will discharge home at this time with precautions to return for worsening or changing symptoms. Lab Data 09/24/22 12:17 09/24/22 12:17 Laboratory Results WBC 9.3 10^3/uL (4.0-10.0) 09/24/22 12:17 RBC 5.52 10^6/uL (4.1-5.3) H 09/24/22 12:17 Hgb 16.6 g/dL (11.7-16.6) 09/24/22 12:17 Hct 49.4 % (42.0-52.0) 09/24/22 12:17 MCV 89.5 fl (80-94) 09/24/22 12:17 MCH 30.1 pg (28.0-34.0) 09/24/22 12:17 MCHC 33.6 g/dL (30.0-36.0) 09/24/22 12:17 RDW 12.1 % (12.1-15.1) 09/24/22 12:17 Plt Count 235 10^3/cmm (130-400) 09/24/22 12:17 MPV 10.1 fL (7.4-10.4) 09/24/22 12:17 Neut % (Auto) 66.4 % 09/24/22 12:17 Lymph % (Auto) 23.1 % 09/24/22 12:17 [place] % (Auto) 8.0 % 09/24/22 12:17 Eos % (Auto) 1.9 % 09/24/22 12:17 Baso % (Auto) 0.5 % 09/24/22 12:17 Neut # (Auto) 6.17 10^3/uL (1.8-7.7) 09/24/22 12:17 Lymph # (Auto) 2.2 10^3/uL (0.8-4.8) 09/24/22 12:17 [place] # (Auto) 0.7 10^3/uL (0.2-0.9) 09/24/22 12:17 Eos # (Auto) 0.2 10^3/uL (0.0-0.8) 09/24/22 12:17 Baso # (Auto) 0.1 10^3/uL (0.0-0.1) 09/24/22 12:17 Nucleated RBC % (auto) 0 % 09/24/22 12:17 Nucleated RBCs # 0.0 /100WBC 09/24/22 12:17 Sodium 132 mmol/L (136-145) L 09/24/22 12:17 Potassium 4.4 mmol/L (3.5-5.1) 09/24/22 12:17 Chloride 98 mmol/L (98-107) 09/24/22 12:17 Carbon Dioxide 25 mmol/L (22-29) 09/24/22 12:17 Anion Gap 13.4 (5-19) 09/24/22 12:17 BUN 21 mg/dL (6-20) H 09/24/22 12:17 Creatinine 0.8 mg/dL (0.7-1.2) 09/24/22 12:17 GFR Calculation 99.3 mL/min (90-130) 09/24/22 12:17 Glucose 149 mg/dL (65-115) H 09/24/22 12:17 Calculated Osmolality 280 mOsm/kg (285-295) L 09/24/22 12:17 Calcium 9.5 mg/dL (8.5-10.5) 09/24/22 12:17 Total Bilirubin 0.4 mg/dL (0.15-1.2) 09/24/22 12:17 AST 18 U/L (0-40) 09/24/22 12:17 ALT 25 U/L (0-41) 09/24/22 12:17 Alkaline Phosphatase 66 U/L (40-130) 09/24/22 12:17 Troponin T Baseline 9 ng/L (0-15) 09/24/22 12:17 Total Protein 7.5 g/dL (6.6-8.7) 09/24/22 12:17 Albumin 4.3 g/dL (3.5-5.2) 09/24/22 12:17 Globulin 3.2 g/dL (1.3-4.6) 09/24/22 12:17 Discharge Plan Discharge Patient Disposition: Home Clinical Impression: Palpitation, Nonspecific chest pain Condition: Stable Prescriptions: No Action ibuprofen 200 mg tablet 800 mg PO .2-3 day PRN (Reason: Pain) insulin aspart U-100 [Novolog Flexpen U-100 Insulin] 100 unit/mL (3 mL) insulin pen 10 unit SUBCUT TID PRN (Reason: diabetes) Qty: 15 11RF tramadol 50 mg tablet 50 mg PO Q6H (DME) trimix injection 0 .Route .MEDSUPPLY lisinopril 10 mg tablet 10 mg PO DAILY Qty: 30 6RF albuterol sulfate [ProAir HFA] 90 mcg/actuation HFA aerosol inhaler 2 puff inhalation Q4H PRN (Reason: shortness of breath or wheezing) Qty: 8.5 6RF (DME) blood-glucose meter [[employer] Ultra2 Meter] Kit See Rx Instructions .Route Qty: 1 0RF Rx Instructions: As directed alprazolam 1 mg tablet 1 mg PO DAILY Qty: 30 2RF metformin 1,000 mg tablet 1,000 mg PO BID Ventolin HFA 90 mcg/actuation Hfa Aerosol Inhaler 2 puff INHALATION QID PRN (Reason: Shortness Of Breath Or Wheezing) simvastatin 10 mg tablet 10 mg PO BEDTIME Levemir FlexTouch U-100 Insuln 100 unit/mL (3 mL) insulin pen 50 unit SUBCUT BID Discharge Orders: Discharge ED (Routine); Ordered 09/24/22 Ordered By: Hal Brewer Referrals: Cezar Segura MD [Primary Care Provider] - Coding Level of Care Code ED Boom Crane Operator for Chg Fwd Exam Comprehensive
[2022-09-24 12:32] LABS: Basophils # 0.1 10^3/uL (0.0-0.1); Basophils % 0.5 %; Eosinophils # 0.2 10^3/uL (0.0-0.8); Eosinophils % 1.9 %; Hematocrit 49.4 % (42.0-52.0); Hemoglobin 16.6 g/dL (11.7-16.6); Lymphocytes # 2.2 10^3/uL (0.8-4.8); Lymphocytes % 23.1 %; Mean Corpuscular HGB Conc 33.6 g/dL (30.0-36.0); Mean Corpuscular Hemoglobin 30.1 pg (28.0-34.0); Mean Corpuscular Volume 89.5 fl (80-94); Mean Platelet Volume 10.1 fL (7.4-10.4); Monocytes # 0.7 10^3/uL (0.2-0.9); Neutrophils # 6.17 10^3/uL (1.8-7.7); Neutrophils % 66.4 %; Nucleated Red Blood Cells % 0 %; Platelet Count 235 10^3/cmm (130-400); Red Blood Count 5.52 10^6/uL (4.1-5.3); Red Cell Distribution Width 12.1 % (12.1-15.1); White Blood Count 9.3 10^3/uL (4.0-10.0)
[2022-09-24 12:44] VITALS: BP 153/79; PULSE 80; RESP 14; O2SAT 91
[2022-09-24 12:47] LABS: Alanine Aminotransferase 25 U/L (0-41); Albumin Level 4.3 g/dL (3.5-5.2); Alkaline Phosphatase 66 U/L (40-130); Aspartate Amino Transferase 18 U/L (0-40); Blood Urea Nitrogen 21 mg/dL (6-20); Calcium 9.5 mg/dL (8.5-10.5); Carbon Dioxide 25 mmol/L (22-29); Chloride 98 mmol/L (98-107); Globulin 3.2 g/dL (1.3-4.6); Glomerular Filtration Rate 99.3 mL/min (90-130); Glucose 149 mg/dL (65-115); Osmolality Calculated 280 mOsm/kg (285-295); Sodium 132 mmol/L (136-145); Total Bilirubin 0.4 mg/dL (0.15-1.2); Total Protein 7.5 g/dL (6.6-8.7)
[2022-09-24 12:51] LABS: Troponin(5th) Baseline 9 ng/L (0-15)
[2022-09-24 12:52] LABS: Anion Gap 13.4 (5-19); Potassium 4.4 mmol/L (3.5-5.1)
--- NOTE | 2022-09-24 13:03 | EV_ITS ---
[facility] Test Date: 2022-10-26 Pat Name: Sal Timmons Department: Room: Gender: Male Radio Repairman: : 1965 Requested By: Hal Brewer Order Number: [id number] Rivas MD: Marah Jung M.D. Interpretive Statements Event monitor findings 1. Period 10/06/2022 to 10/26/2022 2. Total events recorded 3 Manual 2 Auto triggered---------1 3. Monitored time: Diagnostic 74% Artifact 4% No data 23% 4. The baseline rhythm was normal sinus rhythm with an overall average heart rate of 84 bpm. Atrial fibrillation-----none. Normal sinus rhythm --- 88% Sinus tachycardia-------- 12% Sinus bradycardia--------0% 5. Symptoms mentioned with the recording----no symptoms are mentioned with any of the recordings 6. Arrhythmias recorded with the monitoring--rare ventricular and supraventricular ectopics Ventricular ectopics accounted for less than 1% of the total heart beats, 1164 Supraventricular ectopics comprised less than 1% of the total heart beats, 472 7. Bradycardic events -no significant bradycardic events 8. Minimum heart rate recorded 62, sinus rhythm 9. Tachycardic events no symptomatic tachycardia 10. Maximum heart rate recorded 155, possibly sinus tachycardia. Because of the artifact difficult to discern Conclusion: 1. The baseline rhythm was found to be normal sinus with an overall average heart rate of 84 bpm. Rare ventricular and supraventricular ectopics. 2. No symptoms are mentioned in the diary. No significant pauses 3. No similar previous studies are available for comparison Copies to Electronically Signed On 10-29-2022 9:47:57 USABILITY STRATEGIST by Marah Jung M.D. [id number]
== END 2022-09-24 13:28 | disposition home or self-care (01) ==
PROVIDERS: Emergency Provider Emergency Medicine; PCP Family Medicine
DX: R07.9 Chest pain, unspecified (principal); R00.2 Palpitations; Z79.4 Long term (current) use of insulin; Z79.84 Long term (current) use of oral hypoglycemic drugs; F17.210 Nicotine dependence, cigarettes, uncomplicated
CPT/HCPCS: 80053; 84484; 85025; 93005; 99284

== ENCOUNTER 2022-10-27 17:39 | Emergency (ER) | payer BC, MEDICAID, SELFPAY ==
[2022-10-27 17:49] VITALS: BP 135/82; PULSE 86; RESP 16; TEMP 36.9; O2SAT 94
--- NOTE | 2022-10-27 17:54 | ECG_ITS ---
[facility] Test Date: 2022-10-27 Pat Name: Sal Timmons Department: Room: Gender: Male Service Writer Advisor: : 1965 Requested By: Kings Gilmore Order Number: [id number] Rob MD: Marah Jung M.D. Measurements Intervals [place] Rate: 78 P: 58 MT: 165 QRS: 68 QRSD: 102 T: 66 QT: 346 QTc: 394 Interpretive Statements SINUS RHYTHM Compared to ECG 09/24/2022 12:04:11 No significant changes Electronically Signed On 10-28-2022 9:27:10 PIPE THREADER by Marah Jung M.D. [email or web address] [email or web address] [id number]
--- NOTE | 2022-10-27 18:04 | XRR_ITS ---
PROCEDURE INFORMATION: Exam: XR Chest Exam date and time: 10/27/2022 6:22 PM Age: 57 years old Clinical indication: Chest wall pain; Additional info: Cp TECHNIQUE: Imaging protocol: Radiologic exam of the chest. Views: 1 view. COMPARISON: CR XR chest 1V portable [id number] 08/11/2022 12:00 PM FINDINGS: Lungs: Unremarkable. No consolidation. Pleural spaces: Unremarkable. No pleural effusion. No pneumothorax. Heart/Mediastinum: Unremarkable. No cardiomegaly. Bones/joints: Unremarkable. XR/XR chest 1V portable [id number] IMPRESSION: No acute findings.
[2022-10-27 18:22] VITALS: BP 149/77; PULSE 84; RESP 16; O2SAT 94
[2022-10-27 18:26] LABS: Basophils # 0.1 10^3/uL (0.0-0.1); Basophils % 0.6 %; Eosinophils # 0.3 10^3/uL (0.0-0.8); Hematocrit 44.8 % (42.0-52.0); Hemoglobin 15.4 g/dL (11.7-16.6); Lymphocytes # 2.3 10^3/uL (0.8-4.8); Lymphocytes % 29.5 %; Mean Corpuscular HGB Conc 34.4 g/dL (30.0-36.0); Mean Corpuscular Hemoglobin 30.1 pg (28.0-34.0); Mean Corpuscular Volume 87.7 fl (80-94); Mean Platelet Volume 9.9 fL (7.4-10.4); Monocytes # 0.5 10^3/uL (0.2-0.9); Monocytes % 6.9 %; Neutrophils # 4.54 10^3/uL (1.8-7.7); Neutrophils % 58.9 %; Nucleated Red Blood Cells % 0 %; Platelet Count 220 10^3/cmm (130-400); Red Blood Count 5.11 10^6/uL (4.1-5.3); Red Cell Distribution Width 12.2 % (12.1-15.1); White Blood Count 7.7 10^3/uL (4.0-10.0)
[2022-10-27 18:53] LABS: Troponin(5th) Baseline 8 ng/L (0-15)
[2022-10-27 18:55] LABS: Anion Gap 12.4 (5-19); Blood Urea Nitrogen 23 mg/dL (6-20); Calcium 9.4 mg/dL (8.5-10.5); Carbon Dioxide 29 mmol/L (22-29); Chloride 98 mmol/L (98-107); Glomerular Filtration Rate 86.7 mL/min (90-130); Glucose 268 mg/dL (65-115); Osmolality Calculated 293 mOsm/kg (285-295); Potassium 4.4 mmol/L (3.5-5.1); Sodium 135 mmol/L (136-145)
--- NOTE | 2022-10-27 18:55 | W.ED.CHESTPA ---
HPI - Chest Pain General: Chief Complaint: Chest Pain Stated Complaint: Chest pains Time Seen by Provider: 10/27/22 18:00 History of Present Illness: 57-year-old male presents with some chest pain. He reports he was can cross his upper chest. Lasted for about 10 minutes and resolved. He reports that it happened about 30 minutes prior to arrival. He had a similar episode last night. He reports he just got done wearing a 21-day Holter monitor has not heard any abnormalities on it. He has a stress test in 3 days. He is currently not having any symptoms. He denied any diaphoresis, nausea vomiting, shortness of breath or any other associated symptoms at the time. He reports he was sitting down watching TV when it happened. Associated symptoms: Deny abdominal pain, dyspnea, fever(s), nausea, palpitations or vomiting Review of Systems Const: Denies: fever(s) or chills Eyes: Denies: change in vision or blurry vision ENMT: Denies: throat pain or ear or mastoid pain Card: Reports: chest pain; Denies: palpitations, irregular heart rhythm or lightheadedness Resp: Denies: dyspnea, productive cough or wheezing GI: Denies: abdominal pain, nausea or vomiting : Denies: flank pain Musc: Denies: neck pain or back pain Skin/Breast: Denies: rash Neuro: Denies: headache(s) or dizziness PFSH ED PFSH: Medical History Encounter for long-term opiate analgesic use Erectile dysfunction Family History Father , at age 77 COPD (chronic obstructive pulmonary disease) Hypertension Hyperlipidemia Mother , at age 65 Hypertension Hyperlipidemia COPD (chronic obstructive pulmonary disease) Social History Smoking and tobacco status: current every day smoker cigarettes Second hand smoke exposure: No Alcohol intake: never Marital status: Current occupational status: employed History of recent travel: No Physical Exam Const: COMMON NORMALS: no acute distress and patient oriented x3 HENMT: COMMON NORMALS: hearing grossly normal bilaterally and moist oral mucous membranes HEAD & SCALP: normal to inspection Chest: COMMONS NORMALS: normal inspection of the chest and normal palpation of entire chest wall Resp: COMMON NORMALS: normal respiratory effort, No use of accessory muscles and clear to auscultation bilaterally EFFORT & INSPECTION: Yes able to speak in complete sentences AUSCULTATION: clear to auscultation bilaterally Cardio: COMMON NORMALS: regular rate and regular rhythm RATE: regular rate RHYTHM: regular rhythm GI: COMMON NORMALS: Normal to inspection, nondistended, normoactive bowel sounds present, Soft to palpation and non-tender PALPATION: Yes Soft to palpation Extremity: COMMON NORMALS: full ROM and capillary refill normal Neuro: COMMON NORMALS: patient oriented x3, moves all extremities, no focal motor deficits and no sensory deficits noted Psych: COMMON NORMALS: mental status grossly normal, Normal thought process present, cooperative and speech normal SPEECH: Yes normal speech THOUGHT PROCESS: Normal thought process present Skin: COMMON NORMALS: no rashes or lesions noted, no wounds and turgor normal GENERAL SKIN EXAM: no rashes or lesions noted and turgor normal Course Vital Signs: Vital signs: Vital Signs Temperature 98.4 F 10/27/22 17:49 Pulse Rate 84 10/27/22 18:22 Respiratory Rate 16 10/27/22 18:22 Blood Pressure 149/77 10/27/22 18:22 Pulse Oximetry 94 10/27/22 18:22 Oxygen Delivery Me thod 10/27/22 18:22 MDM - Chest Pain Medical Decision Making Patient's chest pain is resolved prior to arrival. He had 2 negative troponins 2 negative EKGs negative chest x-ray with no further symptoms.. Patient has a stress test 3 days from now. This time he was low risk with adequate follow-up. He will be discharged home. He should return to the ER as needed. Patient was stable upon discharge Lab Data 10/27/22 18:15 10/27/22 18:15 Radiology Impressions Chest X-Ray 10/27/22 18:04 IMPRESSION: No acute findings. Laboratory Results WBC 7.7 10^3/uL (4.0-10.0) 10/27/22 18:15 RBC 5.11 10^6/uL (4.1-5.3) 10/27/22 18:15 Hgb 15.4 g/dL (11.7-16.6) 10/27/22 18:15 Hct 44.8 % (42.0-52.0) 10/27/22 18:15 MCV 87.7 fl (80-94) 10/27/22 18:15 MCH 30.1 pg (28.0-34.0) 10/27/22 18:15 MCHC 34.4 g/dL (30.0-36.0) 10/27/22 18:15 RDW 12.2 % (12.1-15.1) 10/27/22 18:15 Plt Count 220 10^3/cmm (130-400) 10/27/22 18:15 MPV 9.9 fL (7.4-10.4) 10/27/22 18:15 Neut % (Auto) 58.9 % 10/27/22 18:15 Lymph % (Auto) 29.5 % 10/27/22 18:15 [place] % (Auto) 6.9 % 10/27/22 18:15 Eos % (Auto) 4.0 % 10/27/22 18:15 Baso % (Auto) 0.6 % 10/27/22 18:15 Neut # (Auto) 4.54 10^3/uL (1.8-7.7) 10/27/22 18:15 Lymph # (Auto) 2.3 10^3/uL (0.8-4.8) 10/27/22 18:15 [place] # (Auto) 0.5 10^3/uL (0.2-0.9) 10/27/22 18:15 Eos # (Auto) 0.3 10^3/uL (0.0-0.8) 10/27/22 18:15 Baso # (Auto) 0.1 10^3/uL (0.0-0.1) 10/27/22 18:15 Nucleated RBC % (auto) 0 % 10/27/22 18:15 Nucleated RBCs # 0.0 /100WBC 10/27/22 18:15 Sodium 135 mmol/L (136-145) L 10/27/22 18:15 Potassium 4.4 mmol/L (3.5-5.1) 10/27/22 18:15 Chloride 98 mmol/L (98-107) 10/27/22 18:15 Carbon Dioxide 29 mmol/L (22-29) 10/27/22 18:15 Anion Gap 12.4 (5-19) 10/27/22 18:15 BUN 23 mg/dL (6-20) H 10/27/22 18:15 Creatinine 0.9 mg/dL (0.7-1.2) 10/27/22 18:15 GFR Calculation 86.7 mL/min (90-130) L 10/27/22 18:15 Glucose 268 mg/dL (65-115) H 10/27/22 18:15 Calculated Osmolality 293 mOsm/kg (285-295) 10/27/22 18:15 Calcium 9.4 mg/dL (8.5-10.5) 10/27/22 18:15 Troponin T Baseline 8 ng/L (0-15) 10/27/22 18:15 Troponin T 120 Minute 8.12 ng/L (0-15) 10/27/22 19:52 Discharge Plan Discharge Patient Disposition: Home Clinical Impression: Chest pain Condition: Stable Prescriptions: No Action insulin aspart U-100 [Novolog Flexpen U-100 Insulin] 100 unit/mL (3 mL) insulin pen 10 unit SUBCUT TID PRN (Reason: diabetes) Qty: 15 11RF tramadol 50 mg tablet 50 mg PO Q6H (DME) trimix injection 0 .Route .MEDSUPPLY lisinopril 10 mg tablet 10 mg PO DAILY Qty: 30 6RF cyclobenzaprine 10 mg tablet 10 mg PO TID PRN (Reason: muscle spasm) Qty: 90 0RF (DME) blood-glucose meter [OneTouch Ultra2 Meter] Kit See Rx Instructions .Route Qty: 1 0RF Rx Instructions: As directed alprazolam 1 mg tablet 1 mg PO DAILY Qty: 30 2RF ibuprofen 800 mg tablet See Rx Instructions .ROUTE .COMPLEX Qty: 90 3RF Dose Instruction: TAKE ONE TABLET BY MOUTH EVERY 8 HOURS NEEDED FOR 30 DAYS Rx Instructions: TAKE ONE TABLET BY MOUTH EVERY 8 HOURS NEEDED FOR 30 DAYS albuterol sulfate [Ventolin HFA] 90 mcg/actuation HFA aerosol inhaler See Rx Instructions .ROUTE .COMPLEX Qty: 8.5 12RF Dose Instruction: inhale TWO puffs BY MOUTH EVERY 4 HOURS as needed for SHORTNESS OF BREATH or wheezing Rx Instructions: inhale TWO puffs BY MOUTH EVERY 4 HOURS as needed for SHORTNESS OF BREATH or wheezing amoxicillin 500 mg capsule 500 mg PO TID Qty: 21 0RF metformin 1,000 mg tablet 1,000 mg PO BID Ventolin HFA 90 mcg/actuation Hfa Aerosol Inhaler 2 puff INHALATION QID PRN (Reason: Shortness Of Breath Or Wheezing) simvastatin 10 mg tablet 10 mg PO BEDTIME Levemir FlexTouch U-100 Insuln 100 unit/mL (3 mL) insulin pen 50 unit SUBCUT BID Discharge Orders: Discharge ED (Routine); Ordered 10/27/22 Ordered By: Adrian Felder Referrals: Cezar Segura MD [Primary Care Provider] - Discharge Diet: Usual diet Discharge Activity: Resume usual activity Patient Instructions: Opioid Safety, Pain Management, Chest Pain (ED) Activity Restrictions/Additional Instructions: Lease keep your appointment for your stress test later this week. Return to the ER with any concerns. Coding Level of Care Code ED Computer Equipment Repairer for Pascual Fwcelsa Exam Comprehensive
--- NOTE | 2022-10-27 20:04 | ECG_ITS ---
[facility] Test Date: 2022-10-27 Pat Name: Sal Timmons Department: Room: Gender: Male Residency Director: : 1965 Requested By: Adrian Felder Order Number: [id number] Rob MD: Marah Jung M.D. Measurements Intervals [place] Rate: 73 P: 50 [place]: 180 QRS: 61 QRSD: 95 T: 67 QT: 351 QTc: 387 Interpretive Statements SINUS RHYTHM Compared to ECG 10/27/2022 18:02:42 No significant changes Electronically Signed On 10-28-2022 20:41:12 WATER PLANT PUMP OPERATOR SUPERVISOR by Marah Jung M.D. [id number]
[2022-10-27 20:23] LABS: Troponin 5 2HR 8.12 ng/L (0-15)
[2022-10-27 20:47] LABS: Troponin 5 2HR Delta 0.12 ABS# (0-10)
[2022-10-27 20:50] VITALS: BP 131/87; PULSE 90; RESP 18; O2SAT 93
== END 2022-10-27 20:52 | disposition home or self-care (01) ==
PROVIDERS: Emergency Provider Student in an Organized Health Care Education/Training Program; PCP Family Medicine
DX: R07.9 Chest pain, unspecified (principal); Z79.84 Long term (current) use of oral hypoglycemic drugs; Z79.4 Long term (current) use of insulin; F17.210 Nicotine dependence, cigarettes, uncomplicated
CPT/HCPCS: 71045; 80048; 84484; 85025; 93005; 99285

== ENCOUNTER 2022-10-30 10:15 | Outpatient (CLI) | payer BC, MEDICAID, SELFPAY ==
[2022-10-30 10:28] VITALS: BMI 29.0
--- NOTE | 2022-10-30 10:28 | NMCV_ITS ---
NM davis perf SPECT r/s* [id number] Wake, Sal Age: 57 Gender: M : 1965 Exam Date: 10/30/2022 10:28 Ordering Phys: Cezar Segura MD Technologist: ANGEL Aj Exam Location: [facility] Indications: CHEST PAIN STRESS TEST Please see separate stress test report in [facility] for full findings IMAGE PROTOCOL Rest/Stress 1 Lexiscan Day Radiopharmaceutical Dose (mCi) Administration Site Administered by Rest: Tc-99m 11.0 IV ANGEL Jha Sestamibi Stress:Tc-99m 32.4 IV ANGEL Jha Sestamibi Rest: 30-Oct-2022 60 Discovery 630 Stress: 30-Oct-2022 30 Discovery 630 0.4mg Lexiscan. Images obtained in supine and prone position. SPECT RESULTS Technical Quality: Excellent Raw Data Analysis: Normal Image Corrections: No attenuation or motion correction applied Summed Stress Score: 5 Summed Rest Score: 0 Summed Difference Score: 5 PERFUSION FINDINGS Small sized perfusion abnormality of mild severity of mid inferior wall with reversibility in mid to apical inferior and mid inferoseptal and apical lateral maloney on stress images. Prone imaging with somewhat improved tracer uptake. FUNCTIONAL RESULTS (calculated via Gated SPECT) Stress Image LV EF (%): 55 Stress EDV (mL):102 TID: 0.9 Stress ESV (mL):46 FUNCTIONAL FINDINGS: The left ventricle is normal in size. Transient Ischemia Dilatation of 0.9. The left ventricular ejection fraction is normal with a value of 55%. There is normal left ventricular wall thickening. Normal end diastolic and end systolic volumes. IMPRESSIONS 1. Small sized reversible perfusion abnormality of mid to apical inferior and mid inferoseptal, apical septal and apical lateral maloney with somewhat improved tracer uptake in prone images. 2. This may represent small area of ischemia in right coronary artery territory. Attenuation artifact cannot be completely ruled out. 3. Overall left ventricular systolic function is normal without regional wall motion abnormalities, LVEF=55%. 4. EKG portion of the study will be reported separately. Gaby Dominguez MD (Electronically Signed) Final Date: 01 November 2022 15:01 S
--- NOTE | 2022-10-30 10:28 | ECG_ITS ---
[facility] Test Date: 2022-10-30 Pat Name: Sal Timmons Department: Room: Gender: Male Special Equipment Technician: Jacquelin Damon : 1965 Requested By: Cezar Ashley Order Number: [id number] Rob MD: Gaby Dominguez M.D. Interpretive Statements NAME OF STUDY: LEXISCAN SESTAMIBI STRESS TEST INDICATION: Chest Pain PROCEDURE: At the baseline, the blood pressure was 135/88 mm Hg with a heart rate of 78 bpm. The electrocardiogram showed sinus rhythm, normal axis. Possible old septal NV. ??? The Lexiscan was infused over a period of 20 seconds. A total of 0.4 milligrams of Lexiscan was infused. The stress phase was continued for a total of 5 minutes. Heart rate at the end of the stress phase was 89 bpm with a blood pressure of 137/73 mm Hg. The EKG at the peak infusion revealed sinus rhythm with no significant ST-T wave changes. The study was terminated due to protocol completion. ??? Sestamibi was injected 20 seconds after the Lexiscan infusion. ??? Blood pressure at the end of the recovery phase was 123/71 mm Hg with a heart rate of 84 beats per minute. ??? CONCLUSION: 1. No significant EKG changes with the LexiScan infusion. 2. No LexiScan induced chest pain or cardiac arrhythmia. 3. Normal blood pressure and heart rate response. 4. Sestamibi/sestamibi perfusion scan pending; see separate report. Electronically Signed On 11-02-2022 16:57:53 DISTRIBUTION SUPERINTENDENT by Gaby Dominguez M.D. [id number]
[2022-10-30] MEDS: regadenoson 0.4 Mg/5 ml Syringe IVP (11:51)
== END 2022-10-30 10:16 | disposition home or self-care (01) ==
LOC: CDL 10:16
PROVIDERS: PCP Family Medicine; Visit Provider Family Medicine
DX: R07.9 Chest pain, unspecified (principal)
CPT/HCPCS: 36415; 78452; 93017; 96374; A9500; J2785

== ENCOUNTER → 2022-11-14 08:07 | Outpatient (BNVA) | payer BC, MEDICAID, SELFPAY | PROVIDERS: PCP Family Medicine; Visit Provider Family Medicine | DX: E11.65 Type 2 diabetes mellitus with hyperglycemia (principal); Z79.4 Long term (current) use of insulin | CPT/HCPCS: 83036 ==

== ENCOUNTER 2022-12-01 06:35 | Outpatient (CLI) | payer BC, MEDICAID, SELFPAY ==
--- NOTE | 2022-12-01 07:15 | USCV_ITS ---
Altaf Timmonsdie Age: 57 Gender: M : 1965 Exam Date: 12/01/2022 07:11 Ordering Phys: Marah Jung MD ([email or web address]) Technologist: Exam Location: [facility] [place] Indication: chest pain BP: 130 / 75 HR: 75 Rhythm: Sinus Technical Quality: Adequate MEASUREMENTS (Male / Female) Normal Values 2D ECHO LV Diastolic Diameter PLAX 4.8 cm 4.2 - 5.9 / 3.9 - 5.3 cm LV Systolic Diameter PLAX 2.9 cm IVS Diastolic Thickness 1.0 cm 0.6 - 1.0 / 0.6 - 0.9 cm IVS Systolic Thickness 1.6 cm LVPW Diastolic Thickness 1.3 cm 0.6 - 1.0 / 0.6 - 0.9 cm LVPW Systolic Thickness 1.3 cm LVOT Diameter 2.0 cm LV Ejection Fraction 2D Teich 70.4 % LV Ejection Fraction MOD 2C 74.9 % LV Ejection Fraction 2C AL 74.4 % LA Diameter 3.1 cm Aorta at Sinotubular Diameter 2.9 cm IVC Diameter 1.2 cm M-MODE MV E Point Septal Separation 1.6 cm DOPPLER AV Peak Velocity 129.0 cm/s LVOT Peak Velocity 101.0 cm/s AV Area Cont Eq vti 2.3 cm squared AV Area Cont Eq pk 2.5 cm squared MV Area PHT 5.0 cm squared Mitral E to A Ratio 1.0 MV E' Velocity 45.5 cm/s Mitral E to MV E' Ratio 8.5 Mitral E to LV E' Lateral Ratio 7.9 Mitral E to LV E' Septal Ratio 9.2 TR Peak Velocity 103.0 cm/s TR Peak Gradient 4.2 mmHg RV Acceleration Time 0.2 s FINDINGS Left Ventricle Normal left ventricular size and systolic function, EF 68 %. Mild left ventricular hypertrophy. No regional wall motion abnormalities. Grade I/IV diastolic dysfunction (abnormal relaxation filling pattern), normal to mildly elevated filling pressures. Right Ventricle The right ventricle is normal in size and function. Right Atrium The right atrium is normal in size. Left Atrium The left atrium is normal in size. Mitral Valve No gross abnormalities noted Aortic Valve No gross abnormalities noted Tricuspid Valve No gross abnormalities noted Pulmonic Valve Pulmonic valve not well visualized. Pericardium Normal pericardium without effusion. Aorta Normal ascending aorta dimension. IVC Normal inferior vena cava. CONCLUSIONS Normal left ventricular size and systolic function, EF 68 %. Mild left ventricular hypertrophy. No regional wall motion abnormalities. Grade I/IV diastolic dysfunction (abnormal relaxation filling pattern), normal to mildly elevated filling pressures. Normal cardiac chamber sizes. No gross valvular abnormalities There is no pericardial effusion. There are no intracardiac masses. No similar previous studies are available for comparison Dr Marah Jung MD FACC (Electronically Signed) Final Date: 01 December 2022 13:59 S
== END 2022-12-01 06:36 | disposition home or self-care (01) ==
LOC: RAD 06:38
PROVIDERS: PCP Family Medicine; Visit Provider Internal Medicine Cardiovascular Disease
DX: R06.02 Shortness of breath (principal); R07.9 Chest pain, unspecified
CPT/HCPCS: 93306

== ENCOUNTER 2023-07-03 14:49 | Outpatient (CLI) | payer MEDICAID, SELFPAY ==
--- NOTE | 2023-07-03 16:00 | MR_ITS ---
WS: [id number] MRI LUMBAR SPINE NONCONTRAST HISTORY: chronic lower back pain COMPARISON: 02/14/2010 TECHNIQUE: Sagittal and axial multisequence imaging is submitted. Scoliosis and curvature cervical spine with fusion hardware. No significant central stenosis. Mild curvature lumbar spine. L3 anterolisthesis by 3 mm. Disc bases are all mildly narrowed and desiccated. Mild reactive endplate changes greatest on the RIG HT at L2-3. Conus terminates normally at L1-2 disc level. L1-L2: Mild asymmetric annular disc bulging. Disc bulging is slightly more prominent as compared to t he prior exam. Mild RIGHT foraminal narrowing. L2-L3: Diffuse moderate annular disc bulging with bilateral foraminal disc protrusions. Disc bulging and protrusions have progressed since the prior study. There is mild encroachment upon the ventral th ecal sac and subarticular recesses. Moderate central, bilateral subarticular recess and LEFT foramina l stenosis. Slightly greater stenosis RIGHT foramen with disc causing more contact on the RIGHT exiti ng L2 nerve root. L3-L4: Diffuse annular disc bulging. Central annular fissures. Marked ligamentum flavum and facet art hritis. Thecal sac is being significantly deformed. There is disc contacting the traversing and exiti ng L3 and L4 nerve roots but slightly greater on the RIGHT. Severe central, bilateral subarticular re cess and moderate foraminal stenosis. L4-L5: Diffuse marked annular disc bulging with ligamentum flavum and facet disease. Disc contacts th e thecal sac and the subarticular recesses. Disc contacts the exiting RIGHT L4 nerve root. Moderate c entral, bilateral subarticular recess and foraminal stenosis. L5-S1: Diffuse disc bulging is asymmetric to the LEFT. Annular disc bulging with LEFT foraminal disc protrusion. Disc contacts the S1 nerve roots bilaterally but greatest involving the LEFT S1 nerve veronica t in the subarticular recesses. Severe LEFT foraminal stenosis. Moderate RIGHT foraminal stenosis. Paravertebral soft tissues are negative. IMPRESSION: 1. Significant progression of degenerative disc disease, facet arthropathy and stenoses since 2009. 2. L2-3: Moderate central, bilateral subarticular recess and LEFT foraminal stenosis. Slightly greate r stenosis RIGHT foramen with disc causing more contact on the exiting RIGHT L2 nerve root. 3. L3-4: Severe central, bilateral subarticular recess and moderate foraminal stenosis. Disc contacts the L3 and L4 nerve roots. 4. L4-5: Moderate central, bilateral subarticular recess and foraminal stenosis. 5. L5-S1: Severe LEFT foraminal and moderate RIGHT foraminal stenosis. Mild central and subarticular recess encroachment. 6. Mild RIGHT foraminal stenosis at L1-2.
== END 2023-07-03 14:50 | disposition home or self-care (01) ==
PROVIDERS: PCP Family Medicine Adult Medicine; Visit Provider Physician Assistant
DX: M48.062 Spinal stenosis, lumbar region with neurogenic claudication (principal); M51.36 Other intervertebral disc degeneration, lumbar region; M47.816 Spondylosis without myelopathy or radiculopathy, lumbar region
CPT/HCPCS: 72148

== ENCOUNTER → 2023-11-03 11:09 | Outpatient (BNVA) | payer MEDICAID, SELFPAY | PROVIDERS: PCP Family Medicine Adult Medicine; Visit Provider Orthopaedic Surgery | DX: M48.062 Spinal stenosis, lumbar region with neurogenic claudication (principal) | CPT/HCPCS: 72100 ==

== ENCOUNTER → 2023-11-20 14:56 | Outpatient (BNVA) | payer MEDICAID, SELFPAY | PROVIDERS: PCP Family Medicine Adult Medicine; Visit Provider Family Medicine Adult Medicine | DX: I10 Essential (primary) hypertension (principal); E11.65 Type 2 diabetes mellitus with hyperglycemia; Z79.4 Long term (current) use of insulin; M48.062 Spinal stenosis, lumbar region with neurogenic claudication; R25.2 Cramp and spasm; I25.10 Atherosclerotic heart disease of native coronary artery without angina pectoris; E11.69 Type 2 diabetes mellitus with other specified complication; E78.5 Hyperlipidemia, unspecified; N52.1 Erectile dysfunction due to diseases classified elsewhere; M47.817 Spondylosis without myelopathy or radiculopathy, lumbosacral region; F41.1 Generalized anxiety disorder; F41.0 Panic disorder [episodic paroxysmal anxiety]; F17.200 Nicotine dependence, unspecified, uncomplicated | CPT/HCPCS: 80053; 81000; 83036; 85025 ==

== ENCOUNTER 2024-06-28 11:30 | Emergency (ER) | payer MEDICAID, SELFPAY ==
[2024-06-28 11:42] VITALS: BP 149/88; PULSE 83; TEMP 37.1; O2SAT 96; BMI 28.8
--- NOTE | 2024-06-28 11:51 | CT_ITS ---
WS: [id number] Examination: CT abdomen pelvis w con* [id number] Reason for Exam: abd pain Date: 06/28/2024 Comparison: 06/03/2020 DLP: 814.[address] scans at [facility] use at least one of these dose optimization techniques: automated e xposure control; mA and/or kV adjustment per patient size (includes targeted exams where dose is matc hed to clinical indication); or iterative reconstruction. Findings: The heart is normal in size. There is coronary artery calcification and disease. The lower esophagus appears abnormal with a thickened there are couple small lymph nodes seen along t he lower esophagus. There is no pleural effusion. There is an unchanged 3 mm nodule in the right middle lobe. The liver is normal in size and appearance. The gallbladder is present. The portal vein is patent. The spleen is unremarkable There is no adrenal mass. The kidneys are well-perfused. There is no cyst stone or hydronephrosis. The aorta is calcified with prominent atherosclerotic change. There is no aneurysm. Lower aortic and iliac luminal narrowing is noted There is no small bowel obstruction. The appendix is unremarkable. There is uncomplicated sigmoid div erticulosis. There is no free fluid. There is no free air. There is scoliosis and degenerative changes of the spine. Anteriorly in the subcutaneous tissues there is increased density which may be related to injection s ites. CT/CT abdomen pelvis w con* [id number] Impression: The appendix is unremarkable. There is no bowel obstruction. There is uncomplicated diverticulosis. There is no free fluid or free air. There is no kidney stone or hydronephrosis Prominent atherosclerotic change is identified. There is coronary calcification. There is a stable right middle lobe 3 mm nodul e..
[2024-06-28 12:00] LABS: Basophils # 0.1 10^3/uL (0.0-0.1); Basophils % 0.7 %; Eosinophils # 0.2 10^3/uL (0.0-0.8); Eosinophils % 1.7 %; Hematocrit 45.9 % (37-53); Lymphocytes # 2.3 10^3/uL (0.8-4.8); Mean Corpuscular Hemoglobin 29.2 pg (27-33); Mean Corpuscular Volume 85.8 fl (82-101); Mean Platelet Volume 9.7 fL (7.4-10.4); Monocytes # 0.6 10^3/uL (0.2-0.9); Monocytes % 6.5 %; Neutrophils # 5.96 10^3/uL (1.8-7.7); Neutrophils % 65.8 %; Nucleated Red Blood Cells % 0 %; Platelet Count 219 10^3/cmm (157-399); Red Blood Count 5.35 10^6/uL (3.85-5.65); Red Cell Distribution Width 12.7 % (12.1-15.1); White Blood Count 9.05 10^3/uL (3.29-11.43)
--- NOTE | 2024-06-28 12:05 | ED_ITS ---
HPI - Abdominal Pain 2 General: Chief Complaint: Abdominal Pain Stated Complaint: adb pain - doctor sent Time Seen by Provider: 06/28/24 11:51 Source: patient Mode of arrival: ambulatory Limitations: no limitations History of Present Illness: 58-year-old male states that over the we ekend he was lifting a heavy tire and felt a sudden pain in his right lower abdomen. States it is continuing to be painful especially with movement and touch rates pain a 6 out of 10 currently states he saw his PCP who had sent him up here for a CT scan to rule out appendicitis he denies any fevers denies any vomiting or diarrhea Associated Symptoms: Denies chills, diarrhea, dysuria, fever(s), nausea and vomiting Related Data Previous Rx's Medication Instructions Recorded blood-glucose meter (OneTouch #1 ea 11/17/22 Ultra2 Meter kit) blood sugar diagnostic (OneTouch #100 strips 07/06/23 Ultra Test strips) pen needle, diabetic 32 gauge x #1,200 ea 07/07/23 (TechLITE Pen Needle) cetirizine 10 mg tablet 10 mg PO DAILY PRN allergy 01/27/24 symptoms #90 tabs insulin detemir U-100 100 unit/mL 60 unit (0.6 mL) SUBCUT BID 01/27/24 (3 mL) subcutaneous pen (Levemir Diabetes #120 mL FlexTouch U-100 Insulin) metformin 1,000 mg tablet See Rx Instructions .Route 03/01/24 .COMPLEX #60 tabs simvastatin 10 mg tablet See Rx Instructions .Route 03/01/24 .COMPLEX #30 tabs ibuprofen 800 mg tablet 800 mg PO Q8H PRN pain #90 tabs 03/02/24 orphenadrine citrate 100 mg 100 mg PO BID 30 days #60 tabs 03/02/24 tablet,extended release insulin aspart U-100 100 unit/mL 10 unit (0.1 mL) SUBCUT TID PRN 04/05/24 (3 mL) subcutaneous pen (Novolog diabetes #15 mL FlexPen U-100 Insulin aspart) fluticasone 250 mcg-salmeterol 50 See Rx Instructions .Route 05/03/24 mcg/dose blistr powdr for .COMPLEX #60 ea inhalation (Advair Diskus) lisinopril 10 mg tablet See Rx Instructions .Route 05/03/24 .COMPLEX #30 tabs metoprolol tartrate 25 mg tablet See Rx Instructions .Route 05/03/24 .COMPLEX #30 tabs alprazolam 1 mg tablet 1 mg PO DAILY #30 tabs 05/31/24 pregabalin 50 mg capsule 50 mg PO BID nerve pain #60 caps 05/31/24 albuterol sulfate 90 mcg/actuation 2 puff inhalation Q6H PRN 06/10/24 aerosol inhaler shortness of breath or wheezing #6.7 grams tramadol 50 mg tablet 50 mg PO Q12H pain 30 days #60 tabs 06/23/24 Allergies Allergy/AdvReac Type Severity Reaction Status Date / Time codeine Allergy ADR-Itching Verified 06/28/24 11:49 naproxen [From Aleve] Allergy ADR-Itching Verified 06/28/24 11:49 gabapentin AdvReac ADR-Halluci Verified 06/28/24 11:49 nating methocarbamol [From Robaxin] AdvReac N/V Verified 06/28/24 11:49 Review of Systems 2 Const: Denies: fever(s), chills, body aches or change in appetite ENMT: Denies: throat pain or dental pain Card: Denies: chest pain Resp: Denies: dyspnea GI: Reports: abdominal pain; Denies: nausea, vomiting or diarrhea : Denies: dysuria Musc: Denies: neck pain or back pain Skin/Breast: Denies: rash Neuro: Denies: headache(s) PFSH ED 2 PFSH: Medical History Diabetic neuropathy associated with diabetes mellitus due to underlying condition Generalized anxiety disorder with panic attacks Bilateral leg cramps Smoker CAD (coronary atherosclerotic disease) Dyslipidemia due to type 2 diabetes mellitus Numbness in both hands Diabetes Osteoarthritis Bilateral shoulders, C?T?L-spine, bilateral hands Lumbar stenosis with neurogenic claudication Erectile dysfunction Encounter for long-term opiate analgesic use [facility] Surgical History H/O left wrist surgery carpal tunnel History of carpal tunnel surgery of left wrist Hx of neck surgery Hx of left knee surgery Family History Father , at age 77 COPD (chronic obstructive pulmonary disease) Hypertension Hyperlipidemia CAD (coronary artery disease) valve replaced Diabetes Mother , at age 65 Hypertension Hyperlipidemia COPD (chronic obstructive pulmonary disease) Diabetes Stroke Grandmother Cancer Stroke Grandfather Diabetes Denies family history of Clotting disorder Dementia Chronic kidney disease (CKD) Suicide Anesthesia complication Bleeding disorder Lung disease Social History Smoking and tobacco/nicotine status: current every day tobacco/nicotine user cigarettes Second hand smoke exposure: No Alcohol intake: never Substance/Drug Use: never Marital status: Current occupational status: employed Physical Exam 2 Const: COMMON NORMALS: no acute distress, patient oriented x3 and healthy appearing HENMT: COMMON NORMALS: normocephalic and atraumatic HEAD & SCALP: n ormocephalic and atraumatic Eye: COMMON NORMALS: Equal, round and reactive pupils present and EOMs intact bilaterally PUPIL: Yes Equal, round and reactive pupils present Neck/C-Spine: COMMON NORMALS: full ROM and supple Chest: COMMONS NORMALS: normal inspection of the chest Resp: COMMON NORMALS: normal respiratory effort Cardio: COMMON NORMALS: regular rate, regular rhythm and No murmurs present (Cardio) RATE: regular rate RHYTHM: regular rhythm GI: COMMON NORMALS: Normal to inspection, nondistended, normoactive bowel sounds present, Soft to palpation and no masses PALPATION: Yes Soft to palpation and Yes Tenderness to palpation present (GI) Details: RLQ Extremity: COMMON NORMALS: normal to inspection and full ROM Neuro: COMMON NORMALS: patient oriented x3, moves all extremities and no focal motor deficits Psych: COMMON NORMALS: mental status grossly normal, Normal thought process present and cooperative THOUGHT PROCESS: Normal thought process present Skin: COMMON NORMALS: no rashes or lesions noted and no wounds GENERAL SKIN EXAM: no rashes or lesions noted Course 2 Vital Signs: Vital signs: Vital Signs Temperature 98.7 F 06/28/24 11:42 Pulse Rate 78 06/28/24 12:23 Respiratory Rate 18 06/28/24 12:23 Blood Pressure 152/89 06/28/24 12:23 Pulse Oximetry 97 06/28/24 12:23 Oxygen Delivery Me thod Room Air 06/28/24 12:23 MDM - Abdominal Pain Medical Decision Making Patient presents here with abdominal pain he likely has an abdominal muscle tear. His white count CT scan shows no signs of appendicitis he is well- appearing here he stable for discharge is follow-up with PCP and return if worsening. Medical Records I reviewed the patient's medical records. Lab Data I reviewed the patient's lab results. 06/28/24 11:48 06/28/24 11:48 Labs/Radiology: Radiology Impressions Abdomen/Pelvis CT 06/28/24 11:51 Impression: The appendix is unremarkable. There is no bowel obstruction. There is uncomplicated diverticulosis. There is no free fluid or free air. There is no kidney stone or hydronephrosis Prominent atherosclerotic change is identified. There is coronary calcification. There is a stable right middle lobe 3 mm nodule.. Laboratory Results WBC 9.05 10^3/uL (3.29-11.43) 06/28/24 11:48 RBC 5.35 10^6/uL (3.85-5.65) 06/28/24 11:48 Hgb 15.60 g/dL (11.27-16.99) 06/28/24 11:48 Hct 45.9 % (37-53) 06/28/24 11:48 MCV 85.8 fl (82-101) 06/28/24 11:48 MCH 29.2 pg (27-33) 06/28/24 11:48 MCHC 34.0 g/dL (30-55) 06/28/24 11:48 RDW 12.7 % (12.1-15.1) 06/28/24 11:48 Plt Count 219 10^3/cmm (157-399) 06/28/24 11:48 MPV 9.7 fL (7.4-10.4) 06/28/24 11:48 Neut % (Auto) 65.8 % 06/28/24 11:48 Lymph % (Auto) 25.0 % 06/28/24 11:48 Pender % (Auto) 6.5 % 06/28/24 11:48 Eos % (Auto) 1.7 % 06/28/24 11:48 Baso % (Auto) 0.7 % 06/28/24 11:48 Neut # (Auto) 5.96 10^3/uL (1.8-7.7) 06/28/24 11:48 Lymph # (Auto) 2.3 10^3/uL (0.8-4.8) 06/28/24 11:48 Pender # (Auto) 0.6 10^3/uL (0.2-0.9) 06/28/24 11:48 Eos # (Auto) 0.2 10^3/uL (0.0-0.8) 06/28/24 11:48 Baso # (Auto) 0.1 10^3/uL (0.0-0.1) 06/28/24 11:48 Nucleated RBC % (auto) 0 % 06/28/24 11:48 Nucleated RBCs # 0.0 /100WBC 06/28/24 11:48 Sodium 135 mmol/L (136-145) L 06/28/24 11:48 Potassium 4.3 mmol/L (3.5-5.1) 06/28/24 11:48 Chloride 99 mmol/L (98-107) 06/28/24 11:48 Carbon Dioxide 26 mmol/L (22-29) 06/28/24 11:48 Anion Gap 14.3 (5-19) 06/28/24 11:48 BUN 15 mg/dL (6-20) 06/28/24 11:48 Creatinine 0.8 mg/dL (0.7-1.2) 06/28/24 11:48 GFR Calculation 98.9 mL/min (90-130) 06/28/24 11:48 Glucose 165 mg/dL (65-115) H 06/28/24 11:48 Calculated Osmolality 285 mOsm/kg (285-295) 06/28/24 11:48 Calcium 8.9 mg/dL (8.5-10.5) 06/28/24 11:48 Total Bilirubin 0.3 mg/dL (0.15-1.2) 06/28/24 11:48 AST 19 U/L (0-40) 06/28/24 11:48 ALT 32 U/L (0-41) 06/28/24 11:48 Alkaline Phosphatase 80 U/L (40-130) 06/28/24 11:48 Total Protein 7.4 g/dL (6.6-8.7) 06/28/24 11:48 Albumin 4.3 g/dL (3.5-5.2) 06/28/24 11:48 Globulin 3.1 g/dL (1.3-4.6) 06/28/24 11:48 Lipase 15 U/L (13-60) 06/28/24 11:48 All radiology interpretation(s) finalized by discharge Discharge Plan Discharge Patient Disposition: Home Clinical Impression: Abdominal pain Condition: Stable Prescriptions: No Action cetirizine 10 mg tablet 10 mg PO DAILY PRN (Reason: allergy symptoms) Qty: 90 1RF Levemir FlexTouch U100 Insulin 100 unit/mL (3 mL) insulin pen 60 unit SUBCUT BID Qty: 120 5RF orphenadrine citrate 100 mg tablet extended release 100 mg PO BID 30 Days Qty: 60 5RF ibuprofen 800 mg tablet 800 mg PO Q8H PRN (Reason: pain) Qty: 90 1RF (DME) blood-glucose meter [OneTouch Ultra2 Meter] Kit See Rx Instructions .Route Qty: 1 0RF Rx Instructions: As directed (DME) OneTouch Ultra Test Strip See Rx Instructions .ROUTE .COMPLEX Qty: 100 6RF Dose Instruction: test THREE TIMES DAILY as directed Rx Instructions: test THREE TIMES DAILY as directed (DME) pen needle, diabetic [TechLITE Pen Needle] 32 gauge x 5/32 needle See Rx Instructions .Route Qty: 1200 0RF Rx Instructions: As directed metformin 1,000 mg tablet See Rx Instructions .ROUTE .COMPLEX Qty: 60 11RF Dose Instruction: TAKE ONE TABLET BY MOUTH TWICE DAILY FOR diabetes Rx Instructions: TAKE ONE TABLET BY MOUTH TWICE DAILY FOR diabetes simvastatin 10 mg tablet See Rx Instructions .ROUTE .COMPLEX Qty: 30 11RF Dose Instruction: TAKE ONE TABLET BY MOUTH AT BEDTIME FOR cholesterol Rx Instructions: TAKE ONE TABLET BY MOUTH AT BEDTIME FOR cholesterol insulin aspart U-100 [Novolog FlexPen U-100 Insulin] 100 unit/mL (3 mL) insulin pen 10 unit SUBCUT TID PRN (Reason: diabetes) Qty: 15 11RF fluticasone propion-salmeterol [Advair Diskus] 250-50 mcg/dose blister with device See Rx Instructions .ROUTE .COMPLEX Qty: 60 6RF Dose Instruction: inhale one PUFF BY MOUTH TWICE DAILY Rx Instructions: inhale one PUFF BY MOUTH TWICE DAILY lisinopril 10 mg tablet See Rx Instructions .ROUTE .COMPLEX Qty: 30 6RF Dose Instruction: TAKE ONE TABLET BY MOUTH DAILY FOR BLOOD PRESSURE Rx Instructions: TAKE ONE TABLET BY MOUTH DAILY FOR BLOOD PRESSURE metoprolol tartrate 25 mg tablet See Rx Instructions .ROUTE .COMPLEX Qty: 30 6RF Dose Instruction: take one-half TABLET BY MOUTH TWICE DAILY Rx Instructions: take one-half TABLET BY MOUTH TWICE DAILY alprazolam 1 mg tablet 1 mg PO DAILY Qty: 30 2RF pregabalin 50 mg capsule 50 mg PO BID Qty: 60 2RF albuterol sulfate 90 mcg/actuation HFA aerosol inhaler 2 puff inhalation Q6H PRN (Reason: shortness of breath or wheezing) Qty: 6.7 0RF tramadol 50 mg tablet 50 mg PO Q12H 30 Days Qty: 60 0RF Rx Instructions: Refill on or after 30 days Discharge Orders: Discharge ED (Routine); Ordered 06/28/24 Ordered By: Rani Savage Referrals: Antonio Ervin MD [Primary Care Provider] - 4-7 days Discharge Diet: Advance as tolerated Discharge Activity: Resume usual activity Patient Instructions: Abdominal Pain (ED) Coding Level of Care Code ED Dog Sitter for Pascual Smith
[2024-06-28] MEDS: iohexol 350 mg/mL 500 mL Btl (per mL) IV (12:07)
[2024-06-28 12:18] LABS: Alanine Aminotransferase 32 U/L (0-41); Albumin Level 4.3 g/dL (3.5-5.2); Alkaline Phosphatase 80 U/L (40-130); Anion Gap 14.3 (5-19); Aspartate Amino Transferase 19 U/L (0-40); Blood Urea Nitrogen 15 mg/dL (6-20); Calcium 8.9 mg/dL (8.5-10.5); Carbon Dioxide 26 mmol/L (22-29); Chloride 99 mmol/L (98-107); Creatinine Clr Calc Pharmacy 123.0373; Globulin 3.1 g/dL (1.3-4.6); Glomerular Filtration Rate 98.9 mL/min (90-130); Glucose 165 mg/dL (65-115); Lipase 15 U/L (13-60); Osmolality Calculated 285 mOsm/kg (285-295); Potassium 4.3 mmol/L (3.5-5.1); Sodium 135 mmol/L (136-145); Total Bilirubin 0.3 mg/dL (0.15-1.2); Total Protein 7.4 g/dL (6.6-8.7)
[2024-06-28] MEDS: sodium chloride 0.9% 1,000 ML 999 ML IV (12:18)
[2024-06-28] MEDS: ondansetron 2 mg/ML SDV 2 mL 4 MG IVP (12:20)
[2024-06-28 12:21] VITALS: RESP 18; O2SAT 93
[2024-06-28] MEDS: morphine 4 mg/mL SDV 1 mL IVP (12:21)
[2024-06-28 12:23] VITALS: BP 152/89; PULSE 78; RESP 18; O2SAT 97
[2024-06-28 13:04] VITALS: BP 144/93; PULSE 78; O2SAT 95
== END 2024-06-28 13:06 | disposition home or self-care (01) ==
PROVIDERS: Emergency Provider Emergency Medicine; PCP Family Medicine Adult Medicine
DX: R10.31 Right lower quadrant pain (principal); Z79.4 Long term (current) use of insulin; Z79.84 Long term (current) use of oral hypoglycemic drugs; F17.210 Nicotine dependence, cigarettes, uncomplicated; E11.40 Type 2 diabetes mellitus with diabetic neuropathy, unspecified; I25.10 Atherosclerotic heart disease of native coronary artery without angina pectoris; E78.5 Hyperlipidemia, unspecified
CPT/HCPCS: 36415; 74177; 80053; 83690; 85025; 96360; 99284; J2270; J2405; J7030

== ENCOUNTER → 2024-07-14 15:25 | Outpatient (BNVA) | payer MEDICAID, SELFPAY | PROVIDERS: PCP Family Medicine Adult Medicine; Visit Provider Orthopaedic Surgery | DX: Z01.818 Encounter for other preprocedural examination (principal); E08.42 Diabetes mellitus due to underlying condition with diabetic polyneuropathy | CPT/HCPCS: 36415; 80053; 81001; 83036; 85025 ==

== ENCOUNTER → 2024-08-02 08:57 | Outpatient (BNVA) | payer MEDICAID, SELFPAY | PROVIDERS: PCP Family Medicine Adult Medicine; Visit Provider Family Medicine | DX: Z01.818 Encounter for other preprocedural examination (principal); I49.8 Other specified cardiac arrhythmias | CPT/HCPCS: 93005 ==

== ENCOUNTER 2024-08-15 07:28 | Day surgery (SDC) | payer MEDICAID, SELFPAY ==
[2024-08-15] VITALS (13 sets, daily range): BP systolic 112–164; BP diastolic 70–93; PULSE 70–91; RESP 14–20; TEMP 36.2–36.4; O2SAT 93–98; BMI 28.8
[2024-08-15 07:57] LABS: Glucose Point of Care 185 mg/dL (70-110)
[2024-08-15] MEDS: sodium chloride 0.9% 1,000 ML 30 ML IV (07:57)
--- NOTE | 2024-08-15 08:30 | W.PM.OPSUD ---
Surgery/Procedure H&P Update DATE OF PROCEDURE: August 15, 2024 DATE H&P PERFORMED: 08/02/24 H&P UPDATE INFORMATION: I have reviewed H&P completed within last 30 days, I have examined patient prior to procedure and No changes to prior documentation PREOP DIAGNOSIS: Lumbar stenosis with neurogenic claudication PLANNED PROCEDURE: Operation Date: 08/15/24 09:00 Proposed Procedures p Lumbar Spine Decompression Lumbar Decompression(Not Applicable) - Yves Ybarra DO
--- NOTE | 2024-08-15 08:50 | P.ANESASSM_ITS ---
Pre-Anesthetic Assessment Height/Weight: Height 1.85 m Weight 99.337 kg Temp Pulse Resp BP Pulse Ox O2 Del Method 97.4 F L 91 17 164/93 94 Room Air 08/15/24 07:42 08/15/24 07:42 08/15/24 07:42 08/15/24 07:42 08/15/24 07:42 08/15/24 07:42 Preop Diagnosis: Lumbar stenosis with neurogenic claudication Operation Date: 08/15/24 09:00 Proposed Procedures p Lumbar Spine Decompression Lumbar Decompression(Not Applicable) - Yves Ybarra, DO Familial anesthetic complications: None Was Beta Erwin taken within 24 hours: Yes Was Clonidine taken within 24 hours: N/A Last intake: Intake Last Liquid Date 08/14/24 Last Liquid Time 22:00 Last Solid Date 08/14/24 Last Solid Time 21:00 Social Tobacco and No alcohol Exam alert, oriented x 3, clear to auscultation bilaterally and regular rate & rhythm Airway Mallampati: Class I Dentition: other (no teeth) Pulmonary Chronic Obstructive Pulmonary Disease CV/HEM Hypertension ECHO 12/01/22 Normal left ventricular size and systolic function, EF 68 %. Mild left ventricular hypertrophy. No regional wall motion abnormalities. Grade I/IV diastolic dysfunction (abnormal relaxation filling pattern), normal to mildly elevated filling pressures. Normal cardiac chamber sizes. No gross valvular abnormalities There is no pericardial effusion. There are no intracardiac masses. No similar previous studies are available for comparison SESTAMIBI STRESS TEST 10/30/22 1. No significant EKG changes with the LexiScan infusion. 2. No LexiScan induced chest pain or cardiac arrhythmia. 3. Normal blood pressure and heart rate response. MYOCARDIAL PERFUSION SCAN 10/30/22 1. Small sized reversible perfusion abnormality of mid to apical inferior and mid inferoseptal, apical septal and apical lateral maloney with somewhat improved tracer uptake in prone images. 2. This may represent small area of ischemia in right coronary artery territory. Attenuation artifact cannot be completely ruled out. 3. Overall left ventricular systolic function is normal without regional wall motion abnormalities, LVEF=55%. CARDIAC EVENT MONITOR 09/24/22 1. The baseline rhythm was found to be normal sinus with an overall average heart rate of 84 bpm. Rare ventricular and supraventricular ectopics. 2. No symptoms are mentioned in the diary. No significant pauses 3. No similar previous studies are available for comparison Metabolic Diabetes Mellitus Anesthetic Plan ASA status: 3 Anesthesia: General Risk of > 500 ml blood loss (7ml/kg in children): No Medications/Allergies Home Medications Medication Instructions Recorded Confirmed Last Taken Type blood-glucose meter (OneTouch #1 ea 11/17/22 07/14/24 Unknown Rx Ultra2 Meter kit) orphenadrine citrate 100 mg 100 mg PO BID 30 days #60 tabs 03/02/24 08/15/24 08/14/24 Rx tablet,extended release insulin aspart U-100 100 unit/mL 10 unit (0.1 mL) SUBCUT TID PRN 04/05/24 08/15/24 Unknown Rx (3 mL) subcutaneous pen (Novolog diabetes #15 mL FlexPen U-100 Insulin aspart) albuterol sulfate 90 mcg/actuation 2 puff inhalation Q6H PRN 06/10/24 08/12/24 08/10/24 Rx aerosol inhaler shortness of breath or wheezing #6.7 grams ibuprofen 800 mg tablet 800 mg PO Q8H PRN pain #90 tabs 07/01/24 08/12/24 08/10/24 Rx cetirizine 10 mg tablet 10 mg PO DAILY PRN allergy 08/01/24 08/12/24 08/14/24 Rx symptoms #90 tabs alprazolam 1 mg tablet 1 mg PO DAILY PRN Anxiety 08/02/24 08/12/24 Unknown History blood sugar diagnostic (OneTouch #100 strips 08/04/24 Unknown Rx Ultra Test strips) pen needle, diabetic 32 gauge x #1,200 ea 08/04/24 Unknown Rx (Pentips) tramadol 50 mg tablet 50 mg PO Q12H pain 30 days #60 tabs 08/08/24 08/12/24 08/15/24 Rx fluticasone 250 mcg-salmeterol 50 1 inh inhalation BID 08/12/24 08/12/24 Unknown History mcg/dose blistr powdr for inhalation (Advair Diskus) lisinopril 10 mg tablet 10 mg PO DAILY 08/12/24 08/12/24 08/14/24 History metformin 1,000 mg tablet 1,000 mg PO BID 08/12/24 08/12/24 08/12/24 History metoprolol tartrate 25 mg tablet 12.5 mg PO BID 08/12/24 08/12/24 08/14/24 History simvastatin 10 mg tablet 10 mg PO DAILY 08/12/24 08/12/24 08/14/24 History insulin detemir U-100 100 unit/mL 60 unit SUBCUT BID 08/15/24 08/15/24 08/14/24 History (3 mL) subcutaneous pen (Levemir FlexPen) Allergies Allergy/AdvReac Type Severity Reaction Status Date / Time codeine Allergy ADR-Itching Verified 08/02/24 09:16 naproxen [From Aleve] Allergy ADR-Itching Verified 08/02/24 09:16 gabapentin AdvReac ADR-Halluci Verified 08/02/24 09:16 nating methocarbamol [From Robaxin] AdvReac N/V Verified 08/02/24 09:16 Current Medications Generic Name Dose Route Start Last Admin Trade Name Freq PRN Reason Stop Dose Admin Sodium Chloride 1,000 mls @ 30 mls/hr 08/15/24 07:45 08/15/24 07:57 Sodium Chloride 0.9% IV 08/16/24 07:44 30 mls/hr .Q24H JULISSA Administration PFSH Anesthesia Medical History Diabetic neuropathy associated with diabetes mellitus due to underlying condition Generalized anxiety disorder with panic attacks Bilateral leg cramps Smoker CAD (coronary atherosclerotic disease) Dyslipidemia due to type 2 diabetes mellitus Numbness in both hands Diabetes Osteoarthritis Bilateral shoulders, C?T?L-spine, bilateral hands Lumbar stenosis with neurogenic claudication Erectile dysfunction Encounter for long-term opiate analgesic use [facility] Surgical History H/O left wrist surgery carpal tunnel History of carpal tunnel surgery of left wrist Hx of neck surgery Hx of left knee surgery Family History Father , at age 77 COPD (chronic obstructive pulmonary disease) Hypertension Hyperlipidemia CAD (coronary artery disease) valve replaced Diabetes Mother , at age 65 Hypertension Hyperlipidemia COPD (chronic obstructive pulmonary disease) Diabetes Stroke Grandmother Cancer Stroke Grandfather Diabetes Denies family history of Clotting disorder Dementia Chronic kidney disease (CKD) Suicide Anesthesia complication Bleeding disorder Lung disease Social History Smoking and tobacco/nicotine status: current some day tobacco/nicotine user cigarettes Second hand smoke exposure: No Alcohol intake: never Substance/Drug Use: never Marital status: Current occupational status: employed Data Anesthesia Cardiac Studies: Echocardiogram 12/01/22 Sestamibi Stress Test (Cardiology) 10/30 Cardiac Event Monitor 09/24/22
[2024-08-15] MEDS: ceFAZolin 2,000 mg SDV 2000 MG IVP (08:57)
[2024-08-15] MEDS: lidocaine-epi 1% 20 mL INJ 10 ML INJECTION (09:36)
--- NOTE | 2024-08-15 10:42 | PM.OP ---
Operative Report Date of procedure: August 15, 2024 Pre-op diagnosis: Lumbar stenosis with neurogenic claudication Post-op diagnosis: same Procedure done: 1. L3-4 laminectomy with partial facetectomy 2. L4-5 laminectomy with partial facetectomy 3. L5-S1 laminectomy with partial facetectomy Surgeon: Yves Ybarra DO Procedure: 1. L3-4 laminectomy with partial facetectomy 2. L4-5 laminectomy with partial facetectomy 3. L5-S1 laminectomy with partial facetectomy Patient is brought to the operative suite. After undergoing anesthesia they are placed in the prone position. All areas of impingement are well padded. Patient is then prepped and draped in the normal sterile fashion. A skin incision is made over the L3/4 level. This is confirmed under c-arm guidance. A series of dilators are passed and the tubular retractor is docked on the L3 lamina. A bovie is used to clear the soft tissue off the lamina and the L 3/4 facet joint. A high speed fransisca is then used to perform the laminectomy and take down the medial aspect of the L 3/4 facet joint. A kerrison rongeure was then used to take down the remaining lamina and smooth the edge of the laminectomy up to the point where the ligamentum flavum attaches. Attention was then brought to the medial aspect of the facet joint. The remaining medial aspect of the superior and inferior aspect of the facet joint were taken down with the kerrison from the pedicle of L3 to L 4. The facet joint had significant hypertrophy. Attention was then brought to the Ligamentum Flavum. The ligament was taken down from the lamina of L3 to L4 and out medially to the remaining facet joint. The ligament was thick. The dura was then exposed. The dura was in good repair. The L3 nerve was then traced with a curette out the L3/4 foramen and found to be adequately decompressed. The L4 nerve was traced with a curette around the L4 pedicle. The lateral recess was opened with a kerrison helping to further decompress the L4 nerve. Wound is then irrigated copiously with saline and surgiflo is used to stop any bleeding. The tubular retractor is removed and the A skin incision is made over the L4/5 level. This is confirmed under c-arm guidance. A series of dilators are passed and the tubular retractor is docked on the L4 lamina. A bovie is used to clear the soft tissue off the lamina and the L 4/5 facet joint. A high speed fransisca is then used to perform the laminectomy and take down the medial aspect of the L 4/5 facet joint. A kerrison rongeure was then used to take down the remaining lamina and smooth the edge of the laminectomy up to the point where the ligamentum flavum attaches. Attention was then brought to the medial aspect of the facet joint. The remaining medial aspect of the superior and inferior aspect of the facet joint were taken down with the kerrison from the pedicle of L4 to L 5. The facet joint had significant hypertrophy. Attention was then brought to the Ligamentum Flavum. The ligament was taken down from the lamina of L4 to L5 and out medially to the remaining facet joint. The ligament was thick. The dura was then exposed. The dura was in good repair. The L4 nerve was then traced with a curette out the L4/5 foramen and found to be adequately decompressed. The L5 nerve was traced with a curette around the L5 pedicle. The lateral recess was opened with a kerrison helping to further decompress the L5 nerve. Wound is then irrigated copiously with saline and surgiflo is used to stop any bleeding. The tubular retractor is removed and the A skin incision is made over the L5/S1 level. This is confirmed under c-arm guidance. A series of dilators are passed and the tubular retractor is docked on the L5 lamina. A bovie is used to clear the soft tissue off the lamina and the L 5/S1 facet joint. A high speed fransisca is then used to perform the laminectomy and take down the medial aspect of the L 5/S1 facet joint. A kerrison rongeure was then used to take down the remaining lamina and smooth the edge of the laminectomy up to the point where the ligamentum flavum attaches. Attention was then brought to the medial aspect of the facet joint. The remaining medial aspect of the superior and inferior aspect of the facet joint were taken down with the kerrison from the pedicle of L5 to S1. The facet joint had significant hypertrophy. Attention was then brought to the Ligamentum Flavum. The ligament was taken down from the lamina of L5 to s1 and out medially to the remaining facet joint. The ligament was thick. The dura was then exposed. The dura was in good repair. The L5 nerve was then traced with a curette out the L5/S1 foramen and found to be adequately decompressed. The S1 nerve was traced with a curette around the S1 pedicle. The lateral recess was opened with a kerrison helping to further decompress the S1 nerve. Wound is then irrigated copiously with saline and surgiflo is used to stop any bleeding. The tubular retractor is removed and the wound is closed with vicryl and monocryl suture. Glue is then used to protect the wound. A sterile dressing is then placed. Patient was then placed in the supine position and transferred to the PACU in stable condition.
[2024-08-15] MEDS: fentaNYL 50 mcg/mL INJ 2mL IVP (11:44)
--- NOTE | 2024-08-15 12:10 | ANE.PACU2 ---
Inpatient post-anesthesia follow up: Airway intact: Yes Vital signs: Temperature 97.5 F Pulse Rate 73 Respiratory Rate 18 Blood Pressure 128/88 Pulse Oximetry 93 Oxygen Delivery Me thod Room Air Oxygen Flow Rate 6 Fraction of Inspir ed Oxygen Hydration adequate: Yes Nausea and vomiting: No Pain level: 1 Mental status: Baseline
--- NOTE | 2024-08-15 12:14 | SUR.PHASEII ---
patient stated pain at 6/10in low back on D/C stated still wanted to go home.
--- NOTE | 2024-08-15 13:29 | XR_ITS ---
WS: [id number] Exam: XR lumbar spine 1V [id number] Date/Time of Exam: 08/15/2024 1:29 PM Reason For Exam: or pic, decompression 3 anterior posterior images of the lower lumbar spine are submitted for evaluation. The images were o btained for preoperative localization purposes.
== END 2024-08-15 12:13 | disposition home or self-care (01) ==
PROVIDERS: PCP Family Medicine Adult Medicine; Visit Provider Orthopaedic Surgery
PROC: (CPT 63005; principal; 2024-08-15 08:40)
DX: M48.062 Spinal stenosis, lumbar region with neurogenic claudication (principal); J44.9 Chronic obstructive pulmonary disease, unspecified; I10 Essential (primary) hypertension; Z79.4 Long term (current) use of insulin; E11.40 Type 2 diabetes mellitus with diabetic neuropathy, unspecified; F41.1 Generalized anxiety disorder; I25.10 Atherosclerotic heart disease of native coronary artery without angina pectoris; E11.9 Type 2 diabetes mellitus without complications; M19.90 Unspecified osteoarthritis, unspecified site; Z79.891 Long term (current) use of opiate analgesic; F17.210 Nicotine dependence, cigarettes, uncomplicated
CPT/HCPCS: 63047; 63048 ×2; 36416; 72020; 76000; 82962; J0690; J1100; J2250; J2405; J2704; J2710; J3010; J3490; J7030

== ENCOUNTER → 2024-08-30 13:17 | Outpatient (BNVA) | payer MEDICAID, SELFPAY | PROVIDERS: PCP Family Medicine Adult Medicine; Visit Provider Orthopaedic Surgery | DX: Z98.890 Other specified postprocedural states (principal) | CPT/HCPCS: 99024 ==

== ENCOUNTER → 2024-09-27 13:00 | Outpatient (BNVA) | payer MEDICAID, SELFPAY | PROVIDERS: PCP Family Medicine Adult Medicine; Visit Provider Orthopaedic Surgery | DX: Z98.890 Other specified postprocedural states (principal) | CPT/HCPCS: 99024 ==

== ENCOUNTER → 2024-11-15 11:20 | Outpatient (BNVA) | payer MEDICAID, SELFPAY | PROVIDERS: PCP Family Medicine Adult Medicine; Visit Provider Family Medicine | DX: E11.65 Type 2 diabetes mellitus with hyperglycemia; Z79.4 Long term (current) use of insulin; I10 Essential (primary) hypertension; I25.10 Atherosclerotic heart disease of native coronary artery without angina pectoris; E78.5 Hyperlipidemia, unspecified; Z79.891 Long term (current) use of opiate analgesic; N52.1 Erectile dysfunction due to diseases classified elsewhere; F41.1 Generalized anxiety disorder; F41.0 Panic disorder [episodic paroxysmal anxiety]; Z12.2 Encounter for screening for malignant neoplasm of respiratory organs; F17.210 Nicotine dependence, cigarettes, uncomplicated | CPT/HCPCS: 80053; 80061; 82043; 82607; 83036; 84443; 85025 ==

== ENCOUNTER 2024-11-23 15:07 | Outpatient (CLI) | payer MEDICAID, SELFPAY ==
--- NOTE | 2024-11-23 15:45 | CT_ITS ---
WS: [id number] LDCT LUNG CANCER SCREENING TECHNIQUE: Noncontrast CT of the chest with coronal and sagittal reformatted images. CLINICAL INFORMATION: smoker, 72pk hx; screening COMPARISON: None. DLP: 105.59 mGy.cm DIvol: Mean CTDIvol: 2.20 (mGy) All CT scans at [facility] use at least one of these dose optimization techniques: automat ed exposure control; mA and/or kV adjustment per patient size (includes targeted exams where dose is matched to clinical indication); or iterative reconstruction. FINDINGS: Several noncalcified subcentimeter pulmonary nodules largest measuring 3 to 4 mm. A few calcified gra nulomas. Aortic calcification. Coronary calcification. No mediastinal or hilar lymphadenopathy. No ax illary lymphadenopathy. Adrenal glands are normal. Tiny esophageal hiatal hernia. Splenic artery calcification. CT/CT lung screening [id number] IMPRESSION: LUNG-RADS: 2-Benign Appearance or Behavior FOLLOW UP: 12 Month: Continue annual screening with LDCT
== END 2024-11-23 15:08 | disposition home or self-care (01) ==
LOC: RAD 15:08
PROVIDERS: PCP Family Medicine; Visit Provider Family Medicine
DX: Z12.2 Encounter for screening for malignant neoplasm of respiratory organs (principal); F17.210 Nicotine dependence, cigarettes, uncomplicated; R91.8 Other nonspecific abnormal finding of lung field; J98.4 Other disorders of lung; I25.10 Atherosclerotic heart disease of native coronary artery without angina pectoris; I70.0 Atherosclerosis of aorta; I70.8 Atherosclerosis of other arteries
CPT/HCPCS: 71271

== ENCOUNTER 2024-12-02 07:06 | Outpatient (CLI) | payer MEDICAID, SELFPAY ==
--- NOTE | 2024-12-02 07:15 | MR_ITS ---
WS: [id number] MRI LUMBAR SPINE NONCONTRAST TECHNIQUE: Sagittal T1, T2 and STIR imaging. Axial T1 and T2 imaging. CLINICAL INFORMATION: Back pain COMPARISON: MRI 07/03/2023 FINDINGS: Mild lumbar curve. No acute compression. Slight anterolisthesis L3 on L4. Disc bulging worse at L2-3 and L5-S1. Slight anterolisthesis L3 on L4. Interval hemilaminectomies L3-L4 and L4-5. Small central protrusions T11-T12 and T12-L1. Moderate LEFT T12-L1 foraminal narrowing. L1-L2: Mild disc bulging with mild central canal stenosis. Mild facet arthropathy. Mild LEFT foraminal narrowing. Central canal stenosis appears slightly progressed at this level. L2-L3: Moderate central canal stenosis with central disc bulging. Impingement subarticular recess. Moderate facet arthropathy. Moderate RIGHT foraminal narrowing. LEFT foramen is patent. Impingement on the traversing RIGHT L3 nerve root. L3-L4: Grade 1 anterolisthesis is stable. Mild disc bulging with moderate central canal stenosis persistent but slightly improved. Advanced facet arthropathy. Mild bilateral foraminal narrowing. L4-L5: Mild disc bulging with mild central canal stenosis. Impingement on the subarticular recess bilaterally. Moderate facet arthropathy. Central canal stenosis has improved. Mild RIGHT foraminal narrowing. L5-S1: Mild disc bulge with impingement of the LEFT subarticular recess and traversing LEFT S1 nerve root. Moderate facet arthropathy. Severe LEFT foraminal narrowing this is similar to previous. Mild RIGHT foraminal narrowing. Visualized pelvic bony structures: Normal. Paravertebral soft tissues: Normal. MR/MR lumbar spine wo con* [id number] IMPRESSION: 1. Interval L3-L4 and L4-L5 hemilaminectomies. 2. Mild central canal stenosis L1-2 appears slightly progressed with central b road-based protrusion. 3. Moderate central canal stenosis L2-3 is similar to previous. Moderate RIGHT foraminal narrowing. RIGHT foraminal protrusion. Impingement on the RIGHT suba rticular recess and traversing RIGHT L3 nerve root. Foraminal protrusion appear s slightly more prominent today. 4. Moderate central canal stenosis L3-4 is persistent but slightly improved. 5. Mild central canal stenosis L4-5 with impingement on the subarticular reces s bilaterally. Central canal stenosis is slightly improved. 6. Stable severe LEFT L5-S1 foraminal narrowing impinges the exiting LEFT L5 n erve root. 7. Disc bulge L5-S1 impinges the traversing LEFT S1 nerve root similar to prev ious
== END 2024-12-02 07:07 | disposition home or self-care (01) ==
PROVIDERS: PCP Family Medicine; Visit Provider Orthopaedic Surgery
DX: M48.061 Spinal stenosis, lumbar region without neurogenic claudication (principal); M48.07 Spinal stenosis, lumbosacral region; Z98.890 Other specified postprocedural states; M51.26 Other intervertebral disc displacement, lumbar region; M51.379 Other intervertebral disc degeneration, lumbosacral region without mention of lumbar back pain or lower extremity pain; R93.7 Abnormal findings on diagnostic imaging of other parts of musculoskeletal system; M43.8X6 Other specified deforming dorsopathies, lumbar region; M51.24 Other intervertebral disc displacement, thoracic region; M47.896 Other spondylosis, lumbar region; M47.897 Other spondylosis, lumbosacral region
CPT/HCPCS: 72148

== ENCOUNTER 2024-12-09 08:07 | Outpatient (CLI) | payer MEDICAID, SELFPAY ==
[2024-12-09 08:49] LABS: Bilirubin Urine Negative (Negative); Blood Urine Negative (Negative); Glucose Urine UA 3+ (Normal); Ketones Urine Negative (Negative); Leukocyte Esterase Urine Negative (Negative); Nitrate Urine Negative (Negative); Protein Urine Negative (Negative); Specific Gravity, Urine 1.024 (1.005-1.030); Urine Appearance Clear (CLEAR); Urine Color Yellow (Yellow); Urobilinogen Urine 0.2 mg/dL (Negative); pH Urine 5.5 (5-7)
[2024-12-09 08:52] LABS: Basophils # 0.1 10^3/uL (0.0-0.1); Basophils % 0.9 %; Eosinophils # 0.4 10^3/uL (0.0-0.8); Eosinophils % 5.4 %; Hematocrit 49.4 % (37-53); Lymphocytes # 1.8 10^3/uL (0.8-4.8); Lymphocytes % 25.1 %; Mean Corpuscular HGB Conc 33.8 g/dL (30-55); Mean Corpuscular Hemoglobin 29.9 pg (27-33); Mean Corpuscular Volume 88.5 fl (82-101); Mean Platelet Volume 9.6 fL (7.4-10.4); Monocytes # 0.7 10^3/uL (0.2-0.9); Monocytes % 9.3 %; Neutrophils # 4.14 10^3/uL (1.8-7.7); Neutrophils % 58.9 %; Nucleated Red Blood Cells % 0 %; Platelet Count 241 10^3/cmm (157-399); Red Blood Count 5.58 10^6/uL (3.85-5.65); Red Cell Distribution Width 13.3 % (12.1-15.1); White Blood Count 7.02 10^3/uL (3.29-11.43)
[2024-12-09 08:54] LABS: Add Urine Microscopic? YES; Bacteria Urine None Seen /hpf; Hyaline Casts Urine 2.46 /lpf; RBC Urine 0-2 /hpf (0-2); Squamous Epithelial Cell Urine 0-5 /hpf (0-5); WBC Urine 0-5 /hpf (0-5)
[2024-12-09 09:01] LABS: Alanine Aminotransferase 30 U/L (0-41); Albumin Level 4.5 g/dL (3.5-5.2); Alkaline Phosphatase 78 U/L (40-130); Anion Gap 12.6 (5-19); Aspartate Amino Transferase 23 U/L (0-40); Blood Urea Nitrogen 19 mg/dL (8-23); Calcium 9.4 mg/dL (8.5-10.5); Carbon Dioxide 29 mmol/L (22-29); Chloride 101 mmol/L (98-107); Globulin 2.9 g/dL (1.3-4.6); Glomerular Filtration Rate 86.1 mL/min (90-130); Glucose 140 mg/dL (65-115); Osmolality Calculated 291 mOsm/kg (285-295); Potassium 4.6 mmol/L (3.5-5.1); Sodium 138 mmol/L (136-145); Total Bilirubin 0.4 mg/dL (0.15-1.2); Total Protein 7.4 g/dL (6.6-8.7)
[2024-12-09 09:02] LABS: Estmated Average Glucose 189; Hemoglobin A1C 8.2 % (4.0-6.0)
== END 2024-12-09 08:08 | disposition home or self-care (01) ==
LOC: LAB 08:08
PROVIDERS: PCP Family Medicine; Visit Provider Orthopaedic Surgery
DX: Z01.818 Encounter for other preprocedural examination (principal)
CPT/HCPCS: 36415; 80053; 81001; 83036; 85025

== ENCOUNTER 2025-01-09 15:28 | Inpatient (IN) | payer MEDICAID, SELFPAY ==
[2025-01-09] VITALS (28 sets, daily range): BP systolic 79–160; BP diastolic 46–102; PULSE 64–100; RESP 15–27; TEMP 36.1–37; O2SAT 90–100; BMI 29.0
[2025-01-09] MEDS: sodium chloride 0.9% 1,000 ML 30 ML IV (08:27)
[2025-01-09 08:36] LABS: Glucose Point of Care 139 mg/dL (70-110)
--- NOTE | 2025-01-09 09:02 | W.PM.OPSFHP ---
Same Day Surgery H&P Indication for Procedure/HPI DATE OF PROCEDURE: January 09, 2025 CHIEF COMPLAINT/INDICATIONFOR SURGICAL PROCEDURE: Back and bilateral leg pain PREOP DIAGNOSIS: Lumbar stenosis with neurogenic claudication PLANNED PROCEDURE: Operation Date: 01/09/25 09:50 Proposed Procedures p Spinal Fusion PSF(Not Applicable) - Yves Ybarra, DO s Posterior Lumbar Interbody Fusion PLIF(Not Applicable) - Yves Ybarra, DO s Lumbopelvic Fixation(Not Applicable) - Yves Ybarra, DO s Sacroiliac Joint Fusion SI Joint Fusion(Not Applicable) - Yves Ybarra, DO Medications/Allergies* Home Medications ?Medication ?Instructions ?Recorded ?Confirmed ?Type metformin 1,000 mg tablet 1,000 mg PO BID 08/12/24 01/05/25 History insulin detemir U-100 100 unit/mL 60 unit SUBCUT BID 08/15/24 01/05/25 History (3 mL) subcutaneous pen (Levemir FlexPen) Allergies/Adverse Reactions Allergy/AdvReac Type Severity Reaction Status Date / Time codeine Allergy ADR-Itching Verified 01/05/25 15:52 naproxen (From Aleve) Allergy ADR-Itching Verified 01/05/25 15:52 gabapentin AdvReac ADR-Halluci Verified 01/05/25 15:52 nating methocarbamol (From Robaxin) AdvReac N/V Verified 01/05/25 15:52 Current Medications: Generic Name Dose Route Start Last Admin Trade Name Freq PRN Reason Stop Dose Admin Sodium Chloride 1,000 mls @ 30 mls/hr 01/09/25 08:15 01/09/25 08:27 Sodium Chloride 0.9% IV 01/10/25 08:14 30 mls/hr .Q24H JULISSA Administration Pertinent History/Comorbid Conditions* Medical History (Updated 11/15/24 @ 12:47 by Narcisa Emanuel MD) Pain management contract signed tramadol; signed 11.15.24 Screening for lung cancer LDCT ordered 11.15.24 Nicotine dependence, cigarettes, uncomplicated Diabetic neuropathy associated with diabetes mellitus due to underlying condition Generalized anxiety disorder with panic attacks Bilateral leg cramps Dyslipidemia due to type 2 diabetes mellitus Diabetes on insulin Osteoarthritis Bilateral shoulders, C?T?L-spine, bilateral hands Lumbar stenosis with neurogenic claudication Erectile dysfunction Encounter for long-term opiate analgesic use Dr. Ervin Surgical History (Updated 11/15/24 @ 12:39 by Narcisa Emanuel MD) Hx of cardiac cath 9..19--no disease History of lumbar laminectomy 09/18 DR. Amada BUTTS History of carpal tunnel surgery of left wrist Hx of neck surgery Hx of left knee surgery Family History (Updated 11/04/22 @ 15:15 by Zahra Padilla RN) Father, at age 77 Mother, at age 65 Diabetes Father Mother Grandfather CAD (coronary artery disease) Father valve replaced Hyperlipidemia Father Mother COPD (chronic obstructive pulmonary disease) Father Mother Cancer Grandmother Hypertension Father Mother Stroke Mother Grandmother Denies family history of Clotting disorder Dementia Chronic kidney disease (CKD) Suicide Anesthesia complication Bleeding disorder Lung disease Social History Smoking and tobacco/nicotine status: current every day tobacco/nicotine user cigarettes Packs smoked per day: 1.5 [ Other cigarette details: started age 11; 72pk yr] Second hand smoke exposure: No Alcohol intake: never Substance/Drug Use: never Household members: spouse and other Details: oldest son Marital status: Number of children: 3 Highest education level completed: 11th Grade Current occupational status: employed 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
--- NOTE | 2025-01-09 09:04 | ANES.PREANE2 ---
Pre-Anesthetic Assessment Height/Weight: Height 1.85 m Weight 99.79 kg Temp Pulse Resp BP Pulse Ox O2 Del Method 97.9 F 84 18 160/102 98 Room Air 01/09/25 08:23 01/09/25 08:23 01/09/25 08:23 01/09/25 08:23 01/09/25 08:23 01/09/25 08:23 Preop Diagnosis: Lumbar stenosis with neurogenic claudication Operation Date: 01/09/25 09:50 Proposed Procedures p Spinal Fusion PSF(Not Applicable) - Yves Ybarra DO s Posterior Lumbar Interbody Fusion PLIF(Not Applicable) - Yves Ybarra DO s Lumbopelvic Fixation(Not Applicable) - Yves Ybarra DO s Sacroiliac Joint Fusion SI Joint Fusion(Not Applicable) - Yves Ybarra DO Familial anesthetic complications: None Was Beta Erwin taken within 24 hours: N/A Was Clonidine taken within 24 hours: N/A Last intake: Intake Last Liquid Date 01/09/24 Last Liquid Time 21:00 Last Solid Date 01/09/24 Last Solid Time 21:00 Social Tobacco and No alcohol Exam alert, oriented x 3, clear to auscultation bilaterally and regular rate & rhythm Airway Mallampati: Class II Dentition: other (no teeth) Pulmonary Chronic Obstructive Pulmonary Disease CV/HEM Hypertension Metabolic Diabetes Mellitus and Hyperlipidemia Anesthetic Plan ASA status: 3 Anesthesia: General Risk of > 500 ml blood loss (7ml/kg in children): No Medications/Allergies Home Medications ?Medication ?Instructions ?Recorded ?Confirmed ?Last Taken ?Type insulin aspart U-100 100 unit/mL 10 unit (0.1 mL) SUBCUT TID PRN 04/05/24 01/05/25 01/02/25 Rx (3 mL) subcutaneous pen (Novolog diabetes #15 mL FlexPen U-100 Insulin aspart) albuterol sulfate 90 mcg/actuation 2 puff inhalation Q6H PRN 06/10/24 01/05/25 01/08/25 Rx aerosol inhaler shortness of breath or wheezing #6.7 grams cetirizine 10 mg tablet 10 mg PO DAILY PRN allergy 08/01/24 01/05/25 01/09/25 04:00 Rx symptoms #90 tabs blood sugar diagnostic (OneTouch #100 strips 08/04/24 01/05/25 Unknown Rx Ultra Test strips) pen needle, diabetic 32 gauge x #1,200 ea 08/04/24 01/05/25 Unknown Rx 532 (Pentips Pen Needle) metformin 1,000 mg tablet 1,000 mg PO BID 08/12/24 01/05/25 01/06/25 History insulin detemir U-100 100 unit/mL 60 unit SUBCUT BID 08/15/24 01/05/25 01/08/25 History (3 mL) subcutaneous pen (Levemir FlexPen) blood-glucose meter #1 ea 09/20/24 01/05/25 Unknown Rx ibuprofen 800 mg tablet 800 mg PO Q8H PRN pain #90 tabs 10/31/24 01/05/25 01/02/25 Rx blood-glucose meter,continuous #1 ea 11/15/24 01/05/25 Unknown Rx (Dexcom G7 Prop Attendant) blood-glucose sensor (Dexcom G7 #6 ea 11/15/24 01/05/25 Unknown Rx Sensor device) atorvastatin 20 mg tablet 20 mg PO DAILY #90 tabs 11/16/24 01/05/25 01/08/25 Rx empagliflozin 10 mg tablet 10 mg PO QAM #90 tabs 11/16/24 01/05/25 01/04/25 Rx Cane, left #1 ea 11/25/24 01/05/25 Unknown Rx fluticasone 250 mcg-salmeterol 50 1 inh inhalation BID #60 ea 11/28/24 01/05/25 Unknown Rx mcg/dose blistr powdr for inhalation (Advair Diskus) lisinopril 10 mg tablet 10 mg PO DAILY #90 tabs 11/28/24 01/05/25 01/08/25 Rx metoprolol tartrate 25 mg tablet 12.5 mg (1/2 x 25 mg) PO BID #90 11/28/24 01/05/25 01/09/25 04:00 Rx tabs tramadol 50 mg tablet 50 mg PO Q4H pain 30 days #180 tabs 12/12/24 01/05/25 01/09/25 04:00 Rx Bone Growth Stimulator #1 ea 12/20/24 01/05/25 Unknown Rx alprazolam 1 mg tablet 1 mg PO DAILY PRN Anxiety #30 tabs 01/05/25 01/05/25 2 Weeks Ago Rx ~12/22/24 Allergies Allergy/AdvReac Type Severity Reaction Status Date / Time codeine Allergy ADR-Itching Verified 01/05/25 15:52 naproxen (From Aleve) Allergy ADR-Itching Verified 01/05/25 15:52 gabapentin AdvReac ADR-Halluci Verified 01/05/25 15:52 nating methocarbamol (From Robaxin) AdvReac N/V Verified 01/05/25 15:52 Current Medications Generic Name Dose Route Start Last Admin Trade Name Freq PRN Reason Stop Dose Admin Sodium Chloride 1,000 mls @ 30 mls/hr 01/09/25 08:15 01/09/25 08:27 Sodium Chloride 0.9% IV 01/10/25 08:14 30 mls/hr .Q24H JULISSA Administration PFSH Anesthesia Medical History Pain management contract signed tramadol; signed 11.15.24 Screening for lung cancer LDCT ordered 11.15.24 Nicotine dependence, cigarettes, uncomplicated Diabetic neuropathy associated with diabetes mellitus due to underlying condition Generalized anxiety disorder with panic attacks Bilateral leg cramps Dyslipidemia due to type 2 diabetes mellitus Diabetes on insulin Osteoarthritis Bilateral shoulders, C?T?L-spine, bilateral hands Lumbar stenosis with neurogenic claudication Erectile dysfunction Encounter for long-term opiate analgesic use Dr. Ervin Surgical History Hx of cardiac cath 9.5.19--no disease History of lumbar laminectomy 09/18 DR. Amada BUTTS History of carpal tunnel surgery of left wrist Hx of neck surgery Hx of left knee surgery Family History Father , at age 77 COPD (chronic obstructive pulmonary disease) Hypertension Hyperlipidemia CAD (coronary artery disease) valve replaced Diabetes Mother , at age 65 Hypertension Hyperlipidemia COPD (chronic obstructive pulmonary disease) Diabetes Stroke Grandmother Cancer Stroke Grandfather Diabetes Denies family history of Clotting disorder Dementia Chronic kidney disease (CKD) Suicide Anesthesia complication Bleeding disorder Lung disease Social History Smoking and tobacco/nicotine status: current every day tobacco/nicotine user cigarettes Packs smoked per day: 1.5 [ Other cigarette details: started age 11; 72pk yr] Second hand smoke exposure: No Alcohol intake: never Substance/Drug Use: never Household members: spouse and other Details: oldest son Marital status: Number of children: 3 Highest education level completed: 11th Grade Current occupational status: employed 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
[2025-01-09] MEDS: ceFAZolin 2,000 mg SDV 2000 MG IVP ×2 (10:00→17:12)
[2025-01-09] MEDS: lidocaine-epi 1% 20 mL INJ INJECTION (10:27)
[2025-01-09] MEDS: VANCOMYCIN ADD-Vantage 1,000 MG VIAL 1000 MG XX (10:28)
[2025-01-09] MEDS: heparin, porcine 1,000 unit/mL INJ 10 mL 10000 UNIT IRRIGATION (10:29)
[2025-01-09 13:48] LABS: Bilirubin Urine Negative (Negative); Blood Urine Negative (Negative); Glucose Urine UA Negative (Normal); Ketones Urine Negative (Negative); Leukocyte Esterase Urine Negative (Negative); Nitrate Urine Negative (Negative); Protein Urine Trace (Negative); Specific Gravity, Urine 1.025 (1.005-1.030); Urine Appearance Turbid (CLEAR); Urine Color Yellow (Yellow); Urobilinogen Urine 0.2 mg/dL (Negative); pH Urine 5.5 (5-7)
[2025-01-09 13:53] LABS: Add Urine Microscopic? YES; Bacteria Urine None Seen /hpf; Hyaline Casts Urine 16.12 /lpf; RBC Urine 0-2 /hpf (0-2); Squamous Epithelial Cell Urine 0-5 /hpf (0-5); WBC Urine 0-5 /hpf (0-5)
--- NOTE | 2025-01-09 14:13 | XR_ITS ---
WS: [id number] INTRAOPERATIVE TECHNIQUE: 5 Spot fluoroscopic images for intraoperative purposes. FLUOROSCOPY TIME: 14 seconds CLINICAL INFORMATION: or pic, fusion FINDINGS: Intraoperative lumbosacral pedicle screw fusion with bilateral sacroiliac fusion. Interbody fusion graft L5-S1. XR/XR lumbar spine 2-3V* [id number] IMPRESSION: Images obtained for intraoperative purposes.
[2025-01-09 14:16] LABS: Add Urine Culture? No; Amorphous Sediment Urine 2+ /hpf; UA Slide Review UA Slide Review Perf
--- NOTE | 2025-01-09 14:17 | P.OP_ITS ---
Operative Report Date of procedure: January 09, 2025 Pre-op diagnosis: Lumbar stenosis with neurogenic claudication L3-4 spondylolisthesis Post-op diagnosis: same Procedure done: 1. L3 to pelvis fusion 2. L3-S1 posterior spine instrumentation 3. Lumbopelvic instrumentation 4. Open SI joint fusion on the right 5. Open SI joint fusion on the left 6. Use of computer navigation stereotactic for spine 7. Bone marrow aspirate from right iliac crest 9. L3/4 laminectomy and partial facetectomies 10. L4/5 laminectomy with partial facetectomies 11. L5/S1 laminectomy with partial facetectomies 12. Use of allograft Surgeon: Yves Ybarra DO Estimated blood loss (mL): 350 Procedure: 1. L5/S1 Interbody fusion with posterolateral fusion 2. Interbody cage placed at L5-S1 3. L3 to pelvis fusion 4. L3-S1 posterior spine instrumentation 5. Lumbopelvic instrumentation 6. Open SI joint fusion on the right 7. Open SI joint fusion on the left 8. Use of computer navigation stereotactic for spine 9. Bone marrow aspirate from right iliac crest 10. L3/4 laminectomy and partial facetectomies 11. L4/5 laminectomy with partial facetectomies 12. L5/S1 laminectomy with partial facetectomies 13. Use of allograft Patient brought to the operative suite after undergoing anesthesia was placed in the prone position. All areas impingement well-padded. Patient is prepped and draped in normal sterile fashion. Skin incisions made using the previous skin incision extending slightly above and below. The thoracolumbar fascia was split and subperiosteal dissection was made out to the transverse process of L3 to L5 bilaterally as well as the sacral ala bilaterally. Sacrum and SI joints were dissected out as well. Next attension was was brought to the bone marrow aspirate. This was done by using the Airpersonsn cell bone marrow aspiration kit. The iliac crest was identi fied and through a separate incision through the fascia and the bone marrow aspiration kit was inserted into the right iliac crest. Bone marrow aspirate was taken 20 cc. This was mixed with the allograft. Next attention was brought to placing the fiducial for the C-arm. This is going to be used for the computer navigation. 2 pins were placed into the right iliac crest which were later moved to the end of the case. The fiducial was attached. C-arm was brought in and then spun around the patient. The information from C arm was then later used after is loaded the computer for the placement of pedicle screws. Next attention was brought to placing the pedicle screws. This was done at L3 bilaterally L4 bilaterally, L5 bilaterally and S1 bilaterally. The computer navigated awl was inserted into the pedicle. Followed by the pedicle feeler. Followed by placement of the screws using the computer navigation. At all these levels. Next attention was placing the iliac screws. This was done using the computer navigated awl. This is placed through the ala across the SI joint into the iliac crest. Then followed by the pedicle feeler. Followed by computer navigated tap. 90 mm 9.5 millimeter pedicle screws were then placed into the iliac crest. This was done bilaterally. Next attention was brought to the open SI joint fusions. This was done by using the computer navigated awl crossing the SI joint. Through direct visualization as well. The pedicle feeler was used to make sure was crossed no breaches. The canal was then filled with bone graft. And then a computer navigated SI joint fusion screws placed across the SI joint. This process was done on both the right and the left side. Once all the screws were placed attention was then brought to doing the laminect roger at L3-4. Patient had previous laminectomies performed on the right side. At this point the spinous process was taken down at L3-4. High-speed bur was used to take down the laminectomy. The facet joints were also taken down using the high-speed bur burring completely out so that the L3 nerves were identified. The facet was taken down and the medial aspect of the facet up to the pedicle was taken down bilaterally of the L4 pedicle. Using Kerrison rongeur. Ligamentum flavum was taken down as far as the kidney there was scarring. However the dura was completely opened and felt to be adequately decompressed. The L3 nerves were traced around the L3 pedicle out where the foramen was in the L4 nerves were traced around the L4 pedicles. Laminectomy was performed at L4 at the L4-5 level. Lamina was taken down with a high-speed bur at L4 medial aspect of facet joints were taken down the high- speed bur curved. Kerrison we reviewed used to remove the remaining bone. The ligament flavum was taken down from L4-L5. The L4 nerve roots were traced out the L4-5 foramen and the L5 nerve was traced around the L5 pedicles bilaterally. Laminectomy was then performed L5-S1. Again the high-speed bur was used to take down the lamina of L5 the medial aspect of facet joints were taken down with a high-speed bur curved curette and Kerrisons were used to take the remaining bone down the ligament flavum was taken down from L5-S1. S1 nerve was traced around the S1 pedicle as the L5 nerve roots were traced out the L5-S1 foramen. The S1 nerve root was then reflected medially on the left side. Discectomy was performed using a knife followed by nigel. Nigel were used starting at size [address] up to size 9. A size 10 trial was used felt to be good size cage and then a size 10 Guzman cage was inserted into the L5-S1 disc space. This was then tamped into good position on the vertebral body which is confirmed under C-arm guidance. Wounds were then irrigated. The arvind was then attached from L3, L4, L5, S1 and into the iliac screw completing the lumbopelvic fixation. The screw caps were then torqued into position. This was done bilaterally. Next attention was brought to decorticating the transverse processes of L3 bilaterally L4 bilaterally L5 bilaterally and sacral ala bilaterally as well as the SI joints. Osteoamp bone graft was then packed into the gutters. And across the SI joint. Vancomycin powder was placed deep drain was placed and wound was closed in layered fashion with Vicryl and Monocryl. Sterile dressings were applied patient was transferred to the PACU in stable condition.
[2025-01-09] MEDS: HYDROcodone-acetaminophen 5-325 mg Tablet PO ×2 (15:39→19:59)
--- NOTE | 2025-01-09 15:59 | SUR.PHASEI ---
Patient taken to room 269, report called to Ashley RN who was in room on arrival to floor. Patient was awake and oriented but drowsy for transport. Pt had hemovac drain in place and was draining, diamond in place, dressing dry and intact and assessed with floor rn on arrival. SCD in place. Vitals in room on floor: bp 115/67, hr 73, 91% on room air, 97.6, 18 rr. Patient's present on transport.
--- NOTE | 2025-01-09 16:12 | ANE.PACU2 ---
Inpatient post-anesthesia follow up: Airway intact: Yes Vital signs: Temperature 97.6 F Pulse Rate 73 Respiratory Rate 18 Blood Pressure 115/67 Pulse Oximetry 91 Oxygen Delivery Me thod Room Air Oxygen Flow Rate 3 Fraction of Inspir ed Oxygen Hydration adequate: Yes Nausea and vomiting: No Pain level: 1 Mental status: Baseline
[2025-01-09] MEDS: lactated ringers 1,000 ML 90 ML IV (16:15)
[2025-01-09] MEDS: morphine 4 mg/mL SDV 1 mL 2 MG IVP ×3 (16:15→23:08)
[2025-01-09 16:21] LABS: Glucose Point of Care 226 mg/dL (70-110)
[2025-01-09] MEDS: ketorolac 30 mg/mL INJ IVP (17:12)
[2025-01-09] MEDS: insulin glargine 100 units/1 mL 50 UNIT SUBCUT (17:13)
[2025-01-09] MEDS: metformin 500 mg Tablet 1000 MG PO (17:13)
[2025-01-09] MEDS: metoprolol tartrate 25 mg Tablet 12.5 MG PO (17:13)
[2025-01-09] MEDS: docusate sodium 100 mg Capsule PO (17:13)
[2025-01-09] MEDS: albuterol 2.5 mg/3 mL Neb INHALATION ×2 (17:32→20:31)
[2025-01-09] MEDS: budesonide 0.5 mg/2 mL Neb INHALATION (20:31)
[2025-01-09 23:16] LABS: Glucose Point of Care 300 mg/dL (70-110)
[2025-01-09] MEDS: insulin lispro 100 unit/1 mL 10 UNIT SUBCUT (23:20)
[2025-01-10] VITALS: BP 132/56; PULSE 80; RESP 16; TEMP 36.9; O2SAT 95
[2025-01-10] MEDS: HYDROcodone-acetaminophen 5-325 mg Tablet PO ×2 (02:50→08:06)
[2025-01-10] MEDS: ceFAZolin 2,000 mg SDV 2000 MG IVP (03:54)
[2025-01-10] MEDS: ketorolac 30 mg/mL INJ IVP ×2 (03:54→08:07)
[2025-01-10 04:59] VITALS: BP 129/63; PULSE 96; RESP 24; TEMP 37.4; O2SAT 96
[2025-01-10 07:05] LABS: Glucose Point of Care 209 mg/dL (70-110)
--- NOTE | 2025-01-10 07:47 | P.DS_ITS ---
Discharge Providers Date of Admission: 01/09/25 15:28 Date of Discharge: January 10, 2025 Attending Provider at Admission: Yves Ybarra DO Attending Provider at Discharge: Yves Ybarra DO Primary Care Provider: Narcisa Emanuel MD Reason for Visit Reason for Visit: M48.062 Physical Exam Narrative: Patient doing well sitting up bedside ready go dressings clean dry and intact. The pain in his legs is significant improved. The little numbness on the lateral thigh on the left. Urinary Catheter Management: Goncalves: Cath Placed During This Visit: yes, but has since been removed by the nurse Reason for Continuing Indwelling Catheter: Decision to DC Catheter Urinary Catheter Date of Insertion: 01/09/25 Urinary Catheter Time of Insertion: 09:49 Date Urinary Catheter Removed: 01/09/25 Time Urinary Catheter Discontinued: 18:00 Discharge Data Studies Completed and Pending Completed Studies During Hospitalization Category Date Time Status XR lumbar spine 2-3V* [id number] Routine Exams 01/09/25 14:13 Completed Radiology Impressions Lumbar Spine X-Ray 01/09/25 14:13 IMPRESSION: Images obtained for intraoperative purposes. Laboratory Results POC Glucose 209 mg/dL (70-110) H 01/10/25 06:42 Urine Color Yellow (Yellow) 01/09/25 13:37 Urine Appearance Turbid (CLEAR) A 01/09/25 13:37 Urine pH 5.5 (5-7) 01/09/25 13:37 Ur Specific [place] 1.025 (1.005-1.030) 01/09/25 13:37 Urine Protein Trace (Negative) A 01/09/25 13:37 Urine Glucose (UA) Negative (Normal) 01/09/25 13:37 Urine Ketones Negative (Negative) 01/09/25 13:37 Urine Blood Negative (Negative) 01/09/25 13:37 Urine Nitrate Negative (Negative) 01/09/25 13:37 Urine Bilirubin Negative (Negative) 01/09/25 13:37 Urine Urobilinogen 0.2 mg/dL (Negative) 01/09/25 13:37 Ur Leukocyte Esterase Negative (Negative) 01/09/25 13:37 Urine RBC 0-2 /hpf (0-2) 01/09/25 13:37 Urine WBC 0-5 /hpf (0-5) 01/09/25 13:37 Ur Squamous Epith Cells 0-5 /hpf (0-5) 01/09/25 13:37 Amorphous Sediment 2+ /hpf 01/09/25 13:37 Urine Bacteria None seen /hpf (NONE) 01/09/25 13:37 Hyaline Casts 16.12 /lpf 01/09/25 13:37 Blood Type A Positive 01/09/25 08:27 Rho(D) Type Rh positive 01/09/25 08:27 Antibody Screen Negative 01/09/25 08:27 Vitals Last Vital Signs Temp 99.3 F 01/10/25 04:59 Pulse 96 01/10/25 04:59 Resp 24 H 01/10/25 04:59 BP 129/63 01/10/25 04:59 Pulse Ox 96 01/10/25 04:59 O2 Del Method Room Air 01/10/25 04:59 O2 Flow Rate 2 01/09/25 16:15 Discharge Plan Discharge Patient Disposition: Home Condition: Good Prescriptions: New hydrocodone-acetaminophen 5-325 mg tablet 1 - 2 tab PO .Q4-6H Qty: 40 0RF Continued (DME) Dexcom G7 Ceramic Coater Misc See Rx Instructions .Route Qty: 1 0RF Rx Instructions: As directed (DME) Dexcom G7 Sensor Device See Rx Instructions .Route Qty: 6 3RF Rx Instructions: As directed insulin aspart U-100 [Novolog FlexPen U-100 Insulin] 100 unit/mL (3 mL) insulin pen 10 unit SUBCUT TID PRN (Reason: diabetes) Qty: 15 11RF albuterol sulfate 90 mcg/actuation HFA aerosol inhaler 2 puff inhalation Q6H PRN (Reason: shortness of breath or wheezing) Qty: 6.7 0RF cetirizine 10 mg tablet 10 mg PO DAILY PRN (Reason: allergy symptoms) Qty: 90 1RF (DME) pen needle, diabetic [Pentips Pen Needle] 32 gauge x 5/32 needle See Rx Instructions .ROUTE .COMPLEX Qty: 1200 0RF Dose Instruction: USE DIRECTED FIVE times daily with novolog and levemir Rx Instructions: USE DIRECTED FIVE times daily with novolog and levemir (DME) OneTouch Ultra Test Strip See Rx Instructions .ROUTE .COMPLEX Qty: 100 12RF Dose Instruction: test THREE TIMES DAILY as directed Rx Instructions: test THREE TIMES DAILY as directed (DME) blood-glucose meter Kit See Rx Instructions .Route Qty: 1 0RF Rx Instructions: As directed atorvastatin 20 mg tablet 20 mg PO DAILY Qty: 90 3RF Rx Instructions: replaces simvastatin empagliflozin 10 mg tablet 10 mg PO QAM Qty: 90 1RF (DME) Cane, left See Rx Instructions .Route .MEDSUPPLY Qty: 1 0RF Rx Instructions: As directed lisinopril 10 mg tablet 10 mg PO DAILY Qty: 90 2RF Rx Instructions: TAKE ONE TABLET BY MOUTH DAILY FOR BLOOD PRESSURE fluticasone propion-salmeterol [Advair Diskus] 250-50 mcg/dose blister with device 1 inh inhalation BID Qty: 60 5RF Rx Instructions: inhale one PUFF BY MOUTH TWICE DAILY metoprolol tartrate 25 mg tablet 12.5 mg PO BID Qty: 90 2RF Rx Instructions: take one-half TABLET BY MOUTH TWICE DAILY tramadol 50 mg tablet 50 mg PO Q4H 30 Days Qty: 180 0RF (DME) Bone Growth Stimulator See Rx Instructions .Route .MEDSUPPLY Qty: 1 0RF Rx Instructions: As directed metformin 1,000 mg tablet 1,000 mg PO BID Rx Instructions: TAKE ONE TABLET BY MOUTH TWICE DAILY FOR diabetes Levemir FlexPen 100 unit/mL (3 mL) insulin pen 60 unit SUBCUT BID Held ibuprofen 800 mg tablet 800 mg PO Q8H PRN (Reason: pain) Qty: 90 1RF Hold Instructions: Resume on 04/12/25. Discontinued alprazolam 1 mg tablet 1 mg PO DAILY PRN (Reason: Anxiety) Qty: 30 0RF Discharge Orders: Discharge Order (Routine); Ordered 01/10/25 Ordered By: Yves Ybarra Discharge Diet: Advance as tolerated Discharge Activity: Limit activity as instructed Patient Instructions: Acute Wound Care (DC), Opioid Safety, Post Anesthesia Care Activity Restrictions/Additional Instructions: Okay to restart alprazolam when you get home Thank you for [facility] for your care! The following is a list of instructions, from your provider, to follow upon your discharge to ensure you have the optimal recovery from your recent injury orsurgery. Follow-up care is a rodriguez part of your treatment and safety. Be sure to make and go to all appointments, and call your doctor if you are having problems. If you do not already have a follow-up appointment made, call Dr. Ybarra office in the next 1-3 days to make follow up appointment for 1 weeks at [phone]. It is also a good idea to know your test results and keep a list of the medicines you take. Medications will be prescribed for you at your provider's discretion. These medications are to be used as instructed; if they are taken more often that prescribed they will not be refilled early and in most cases will not be refilled at all. > When a refill is needed,you should contact addis bland 2-3 business days before your prescription runs out. Medications will NOT be refilled by testing consultant providers after hours! > Many pain medications contain Tylenol (Acetaminophen). Do not consume more than 4,000 mg of Tylenol per day in total with any combination ofmedications. > Pain medications can cause constipation. Please use an over the counter stool softener as directed, while taking pain medications. Consulty our local pharmacist with questions or recommendations on stool softeners. If constipation persists, contact our office or your primary care provider. > While under our care,you are not to receive pain medications or other controlled substances from any other provider unless our office is notified and approves. Any attempts to do so will result in refusal to prescribe any further pain medications and possible dismissal from our practice. ? Keep dressing clean dry and intact we will change his dressing in 1 week in the clinic ? Showering is permitted, however we ask that you do not take a bath, sit in a whirlpool / Jacuzzi, or go swimming for 1 month. For only the first 2 days after surgery, lt wilt be necessary for you to cover your wound/dressing with plastic and tape to keep it dry. ? Walking is essential for the healing process after surgery. We would like you to slowly advance your walking. This should be done on relatively flat clear ground (inside or out) or can be done on a treadmill. Remember this goal does not have to happen all at once, slowly increase your distance and duration. This can be broken into more more than one walk per day as tolerated. Patients who walk as directed after surgery rarely require Physical Therapy. In the unlikely event this issue arises your provider will direct hospital staff to make the appropriate arrangements. ? No lifting over 5 pounds {a gallon of milk) or bending/twisting until further notice. Each of these activities places an unnecessary amount of stress onto the body and can impede the delicate healing process. > Instead of bending at the waist, keep your back straight and bend at the knees. > Instead of twisting your torso, keep your back straight and turn your entire body with your feet. ? You may sleep in any position which makes you comfortable. Many patients find comfort sleeping in a reclining chair. It is not abnormal to have difficulty sleeping for the first several weeks following your surgery. We recommend trying Benadry! or Tylenol PM as directed to help with your sleeping difficulties. Both medications are over the counter and available withoutprescription. ? NO SMOKING!!! Smoking dramatically increases the probability of developing postoperative wound infections. ? Common complaints after lumbar and/or thoracic spine surgery include, but are not limited to: numbness and/or tingling in the legs, pain around the incision and surrounding tissues, muscle spasms, or stiffness of the middle to low back. Contact our office if these symptoms persist or if an acute change occurs. ? No driving for the first 3-5days, and not while taking narcotics until seen at your follow-up appointment and cleared. There are no restrictions for riding on short trips, however if you take a longer trip, arrangements should be made to make regular stops to get out of the vehicle and stretch . ? Swelling is an unfortunate event that will take place with any surgery and is the primary source of your postoperative discomfort. While walking and regular approved activities helps control inflammation, there are additional steps you can take to minimizeswelling. > Place ice over the surgical site and surrounding tissue for twenty minutes, followed by applying a low/medium heat (heating pad) for an additional twenty minutes every 1-2 hours as needed for painrelief. > You may use of over the counter anti-inflammatory medications (Ibuprofen, Motrin, Aleve, Advil, etc) as directed on the package label. These types of medicines wm significantly reduce the amount of discomfort you experience after surgery from swelling. It should be noted that if you have and allergy to any of these medications, or a history of ulcers or kidney disease you should consult you primary care provider prior to starting these medications. Discharge Attestations Time Spent in Discharge Care*: less than 30 min Quality Metrics Clinical Quality Measures [ No reported AMI, CVA or VTE this stay] Coding Level of Care Code Acute Code for Chg Fwd
[2025-01-10] MEDS: docusate sodium 100 mg Capsule PO (08:06)
[2025-01-10] MEDS: metoprolol tartrate 25 mg Tablet 12.5 MG PO (08:07)
[2025-01-10] MEDS: atorvastatin 40 mg Tablet 20 MG PO (08:07)
[2025-01-10] MEDS: lisinopril 10 mg Tablet PO (08:07)
[2025-01-10] MEDS: metformin 500 mg Tablet 1000 MG PO (08:07)
[2025-01-10 08:32] VITALS: BP 125/54; PULSE 89; RESP 16; TEMP 36.6; O2SAT 97
[2025-01-10] MEDS: insulin glargine 100 units/1 mL 50 UNIT SUBCUT (08:56)
--- NOTE | 2025-01-10 09:35 | PC.NURSE ---
Discharge Note Patient discharged to home via private vehicle accompanied by . Discharge instructions reviewed with patient and/or telesales representative. Mobile pharmacy medications and/or prescriptions provided. Belongings/home medications returned. Patient instructed to ice back incision 20 minutes on and 20 minutes off due to post op swelling to tissue above incision.
--- NOTE | 2025-01-10 09:36 | PC.NURSE ---
Drain removed, 2x2 with pressure applied for approximately 2 minutes then secured with tegaderm. Patient tolerated well.
[2025-01-10 09:37] VITALS: BP 125/54; PULSE 89; RESP 16; TEMP 36.6; O2SAT 97
== END 2025-01-10 09:39 | disposition home or self-care (01) | DRG 428 ==
LOC: MEDSURG 15:29
PROVIDERS: Admitting Provider Orthopaedic Surgery; PCP Family Medicine; Visit Provider Orthopaedic Surgery
PROC: 0SG30AJ Fusion of Lumbosacral Joint with Interbody Fusion Device, Posterior Approach, Anterior Column, Open Approach (ICD-10-PCS; principal; 2025-01-09 09:30)
PROC: 0SG30AJ Fusion of Lumbosacral Joint with Interbody Fusion Device, Posterior Approach, Anterior Column, Open Approach (ICD-10-PCS; CPT 22612; 2025-01-09 09:30)
PROC: 0SG30AJ Fusion of Lumbosacral Joint with Interbody Fusion Device, Posterior Approach, Anterior Column, Open Approach (ICD-10-PCS; 2025-01-09 09:30)
PROC: 0SG30AJ Fusion of Lumbosacral Joint with Interbody Fusion Device, Posterior Approach, Anterior Column, Open Approach (ICD-10-PCS; CPT 27280; 2025-01-09 09:30)
DX: M48.062 Spinal stenosis, lumbar region with neurogenic claudication (principal); M43.16 Spondylolisthesis, lumbar region; F17.210 Nicotine dependence, cigarettes, uncomplicated; E11.40 Type 2 diabetes mellitus with diabetic neuropathy, unspecified; F41.1 Generalized anxiety disorder; E78.5 Hyperlipidemia, unspecified; M15.9 Polyosteoarthritis, unspecified; N52.9 Male erectile dysfunction, unspecified; J44.9 Chronic obstructive pulmonary disease, unspecified; Z79.4 Long term (current) use of insulin; Z79.84 Long term (current) use of oral hypoglycemic drugs
CPT/HCPCS: 36416; 51702; 72100; 76000; 81001; 82962; 86850; 86900; 94640; 96372; 97161; C1713; C1734; J0330; J0690; J1100; J1171; J1644; J1815; J1885; J2250; J2270; J2371; J2405; J2704; J2710; J3010; J3370; J3490; J7030; J7120; J7613; J7626; J9999; P9045

== ENCOUNTER 2025-01-13 20:36 | Emergency (ER) | payer MEDICAID, SELFPAY ==
[2025-01-13 20:38] VITALS: BP 134/79; PULSE 116; RESP 18; TEMP 37.2; O2SAT 97; BMI 29.0
[2025-01-14 01:05] VITALS: BP 168/101; PULSE 92; O2SAT 100
--- NOTE | 2025-01-14 01:25 | XRR_ITS ---
PROCEDURE INFORMATION: Exam: XR Abdomen Exam date and time: 01/14/2025 1:28 AM Age: 59 years old Clinical indication: Prior surgery; Surgery date: 3-7 days post-operative; Surgery type: Lumbar fusion 01/09/2025; C/O constipation since lumbar fusion surgery on 01/09/2025. ; Additional info: Lower abdominal pain, constipation TECHNIQUE: Imaging protocol: Radiologic exam of the abdomen. Views: Frontal supine view of the abdomen. 1 View. COMPARISON: CT abdomen pelvis w con* [id number] 06/28/2024 12:02 PM FINDINGS: Gastrointestinal tract: Normal. No bowel dilation. Bones/joints: Status post interval lumbosacral spine fusion. XR/XR KUB [id number] IMPRESSION: No acute findings.
[2025-01-14 01:35] VITALS: BP 146/85; PULSE 101
[2025-01-14] MEDS: bisacodyl 5 mg Tablet 10 MG PO (02:45)
[2025-01-14] MEDS: methylnaltrexone 12 /0.6 mL INJ 12 MG SUBCUT (02:45)
--- NOTE | 2025-01-14 03:05 | PC.NURSE ---
Patiently poorly tolerating soap suds enema, and requesting to do it in small phases. Patient did produce small, hard BM.
--- NOTE | 2025-01-14 03:11 | W.ED.ABDPA2 ---
HPI - Abdominal Pain General: Chief Complaint: Abdominal Pain Stated Complaint: constipated Time Seen by Provider: 01/14/25 00:30 Source: patient and family Mode of arrival: ambulatory Limitations: no limitations History of Present Illness: Constipation. Has tried laxatives and a fleets enema at home with no success. Last bowel movement was Thursday. Had surgery Thursday. This is causing lower abdominal pain. No fever no chills. Related Data Home Medications ?Medication ?Instructions ?Recorded ?Confirmed metformin 1,000 mg tablet 1,000 mg PO BID 08/12/24 01/05/25 insulin detemir U-100 100 unit/mL 60 unit SUBCUT BID 08/15/24 01/05/25 (3 mL) subcutaneous pen (Levemir FlexPen) Previous Rx's ?Medication ?Instructions ?Recorded insulin aspart U-100 100 unit/mL 10 unit (0.1 mL) SUBCUT TID PRN 04/05/24 (3 mL) subcutaneous pen (Novolog diabetes #15 mL FlexPen U-100 Insulin aspart) albuterol sulfate 90 mcg/actuation 2 puff inhalation Q6H PRN 06/10/24 aerosol inhaler shortness of breath or wheezing #6.7 grams cetirizine 10 mg tablet 10 mg PO DAILY PRN allergy 08/01/24 symptoms #90 tabs blood sugar diagnostic (OneTouch #100 strips 08/04/24 Ultra Test strips) pen needle, diabetic 32 gauge x #1,200 ea 08/04/24 (Pentips Pen Needle) blood-glucose meter #1 ea 09/20/24 ibuprofen 800 mg tablet 800 mg PO Q8H PRN pain #90 tabs 10/31/24 Held on 01/10/25. Instructions: Resume on 04/12/25. blood-glucose meter,continuous #1 ea 11/15/24 (Dexcom G7 Senior Quality Engineer) blood-glucose sensor (Dexcom G7 #6 ea 11/15/24 Sensor device) atorvastatin 20 mg tablet 20 mg PO DAILY #90 tabs 11/16/24 empagliflozin 10 mg tablet 10 mg PO QAM #90 tabs 11/16/24 Cane, left #1 ea 11/25/24 fluticasone 250 mcg-salmeterol 50 1 inh inhalation BID #60 ea 11/28/24 mcg/dose blistr powdr for inhalation (Advair Diskus) lisinopril 10 mg tablet 10 mg PO DAILY #90 tabs 11/28/24 metoprolol tartrate 25 mg tablet 12.5 mg (1/2 x 25 mg) PO BID #90 11/28/24 tabs tramadol 50 mg tablet 50 mg PO Q4H pain 30 days #180 tabs 12/12/24 Bone Growth Stimulator #1 ea 12/20/24 hydrocodone 5 mg-acetaminophen 325 1 - 2 tab PO .Q4-6H #40 tabs 01/10/25 mg tablet lactulose 10 gram/15 mL oral 20 g (30 mL) PO TID PRN 01/14/25 solution constipation #300 mL Allergies Allergy/AdvReac Type Severity Reaction Status Date / Time codeine Allergy ADR-Itching Verified 01/05/25 15:52 naproxen (From Aleve) Allergy ADR-Itching Verified 01/05/25 15:52 gabapentin AdvReac ADR-Halluci Verified 01/05/25 15:52 nating methocarbamol (From Robaxin) AdvReac N/V Verified 01/05/25 15:52 Review of Systems General: Reports: 10 or more systems reviewed and unremarkable except in HPI and below PFSH ED PFSH: Medical History Pain management contract signed tramadol; signed 11.15.24 Screening for lung cancer LDCT ordered 11.15.24 Nicotine dependence, cigarettes, uncomplicated Diabetic neuropathy associated with diabetes mellitus due to underlying condition Generalized anxiety disorder with panic attacks Bilateral leg cramps Dyslipidemia due to type 2 diabetes mellitus Diabetes on insulin Osteoarthritis Bilateral shoulders, C?T?L-spine, bilateral hands Lumbar stenosis with neurogenic claudication Erectile dysfunction Encounter for long-term opiate analgesic use Dr. Ervin Surgical History Hx of cardiac cath ..--no disease History of lumbar laminectomy 09/18 DR. Amada BUTTS History of carpal tunnel surgery of left wrist Hx of neck surgery Hx of left knee surgery Family History Father , at age 77 COPD (chronic obstructive pulmonary disease) Hypertension Hyperlipidemia CAD (coronary artery disease) valve replaced Diabetes Mother , at age 65 Hypertension Hyperlipidemia COPD (chronic obstructive pulmonary disease) Diabetes Stroke Grandmother Cancer Stroke Grandfather Diabetes Denies family history of Clotting disorder Dementia Chronic kidney disease (CKD) Suicide Anesthesia complication Bleeding disorder Lung disease Social History Smoking and tobacco/nicotine status: current every day tobacco/nicotine user cigarettes Packs smoked per day: 1.5 [ Other cigarette details: started age 11; 72pk yr] Second hand smoke exposure: No Alcohol intake: never Substance/Drug Use: never Household members: spouse and other Details: oldest son Marital status: Number of children: 3 Highest education level completed: 11th Grade Current occupational status: employed 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 Physical Exam Const: COMMON NORMALS: no acute distress, average body habitus, patient oriented x3, healthy appearing, alert and well nourished GENERAL APPEARANCE: well kempt and well developed HENMT: COMMON NORMALS: normocephalic, atraumatic, external ears normal and moist oral mucous membranes HEAD & SCALP: normocephalic and atraumatic EXTERNAL EAR: Yes external ears normal Eye: COMMON NORMALS: Equal, round and reactive pupils present, EOMs intact bilaterally and conjunctivae normal CONJUNCTIVA: Yes conjunctivae normal PUPIL: Yes Equal, round and reactive pupils present Neck/C-Spine: COMMON NORMALS: full ROM, no lymphadenopathy and supple Chest: CHEST: Yes Symmetrical chest wall rise and No Surgical scars present (Chest) Resp: COMMON NORMALS: normal respiratory effort, No retractions, No use of accessory muscles and clear to auscultation bilaterally AUSCULTATION: clear to auscultation bilaterally Cardio: COMMON NORMALS: regular rate, regular rhythm, S1 normal heart sound present, S2 normal heart sound present, No gallops present (Cardio), No clicks present (Cardio), No murmurs present (Cardio) and No rub (Cardio) RATE: regular rate RHYTHM: regular rhythm HEART SOUNDS: S1 normal heart sound present, S2 normal heart sound present and no murmurs PERIPHERAL PULSES: other (Radial pulses 2+ and symmetric) GI: COMMON NORMALS: Soft to palpation, non-tender and no masses INSPECTION: No abdominal distension PALPATION: Yes Soft to palpation, No Guarding due to palpation present (GI) and No Rebound tenderness present : COMMON NORMALS: Yes no CVA tenderness BLADDER/KIDNEY EXAM: Yes no CVA tenderness Back/Pelvis: COMMON NORMALS: no CVA tenderness Extremity: COMMON NORMALS: normal to inspection, full ROM, capillary refill normal and no clubbing, cyanosis or edema Neuro: COMMON NORMALS: patient oriented x3 SENSORIUM/ORIENTATION: Yes alert Psych: APPEARANCE: Yes well kempt Skin: COMMON NORMALS: no rashes or lesions noted, turgor normal and no jaundice NARRATIVE SKIN EXAM: Wound appears appropriate for postsurgical, clean dry and intact GENERAL SKIN EXAM: no rashes or lesions noted and turgor normal Course Vital Signs: Vital signs: Vital Signs Temperature 99.0 F 01/13/25 20:38 Pulse Rate 101 H 01/14/25 01:35 Respiratory Rate 18 01/13/25 20:38 Blood Pressure 146/85 01/14/25 01:35 Pulse Oximetry 100 01/14/25 01:05 Oxygen Delivery Me thod Room Air 01/13/25 20:38 MDM - Abdominal Pain Medical Decision Making 59-year-old male with surgery on Thursday. Last bowel movement was Thursday morning. He has not had a bowel movement since surgery. Feels constipated having lower abdominal pain. No fever no chills. Surgical site has some soreness but is improved. Patient has had pain medication secondary to the surgery as well. Has not been on a bowel regimen but has tried multiple things. Give a soapsuds and patient only tolerated it partially but did have success with even a partial subset enema. Also given methylnaltrexone and Dulcolax. Prescription sent to pharmacy. Medical Records I reviewed the patient's medical records. Lab Data I reviewed the patient's lab results. Labs/Radiology: Radiology Impressions KUB X-Ray 01/14/25 01:25 IMPRESSION: No acute findings. All radiology interpretation(s) finalized by discharge ED provider radiology interpretation(s): KUB showing mild constipation mostly in the rectal vault and sigmoid. Discharge Plan Discharge Patient Disposition: Home Clinical Impression: Abdominal pain Constipation Qualifiers: Constipation type: drug induced constipation Qualified Code(s): K59.03 - Drug induced constipation Condition: Stable Prescriptions: New lactulose 10 gram/15 mL solution 20 g PO TID PRN (Reason: constipation) Qty: 300 0RF No Action (DME) Dexcom G7 Senior Quality Engineer Misc See Rx Instructions .Route Qty: 1 0RF Rx Instructions: As directed (DME) Dexcom G7 Sensor Device See Rx Instructions .Route Qty: 6 3RF Rx Instructions: As directed insulin aspart U-100 [Novolog FlexPen U-100 Insulin] 100 unit/mL (3 mL) insulin pen 10 unit SUBCUT TID PRN (Reason: diabetes) Qty: 15 11RF albuterol sulfate 90 mcg/actuation HFA aerosol inhaler 2 puff inhalation Q6H PRN (Reason: shortness of breath or wheezing) Qty: 6.7 0RF cetirizine 10 mg tablet 10 mg PO DAILY PRN (Reason: allergy symptoms) Qty: 90 1RF (DME) pen needle, diabetic [Pentips Pen Needle] 32 gauge x 5/32 needle See Rx Instructions .ROUTE .COMPLEX Qty: 1200 0RF Dose Instruction: USE DIRECTED FIVE times daily with novolog and levemir Rx Instructions: USE DIRECTED FIVE times daily with novolog and levemir (DME) OneTouch Ultra Test Strip See Rx Instructions .ROUTE .COMPLEX Qty: 100 12RF Dose Instruction: test THREE TIMES DAILY as directed Rx Instructions: test THREE TIMES DAILY as directed (DME) blood-glucose meter Kit See Rx Instructions .Route Qty: 1 0RF Rx Instructions: As directed ibuprofen 800 mg tablet 800 mg PO Q8H PRN (Reason: pain) Qty: 90 1RF atorvastatin 20 mg tablet 20 mg PO DAILY Qty: 90 3RF Rx Instructions: replaces simvastatin empagliflozin 10 mg tablet 10 mg PO QAM Qty: 90 1RF (DME) Cane, left See Rx Instructions .Route .MEDSUPPLY Qty: 1 0RF Rx Instructions: As directed lisinopril 10 mg tablet 10 mg PO DAILY Qty: 90 2RF Rx Instructions: TAKE ONE TABLET BY MOUTH DAILY FOR BLOOD PRESSURE fluticasone propion-salmeterol [Advair Diskus] 250-50 mcg/dose blister with device 1 inh inhalation BID Qty: 60 5RF Rx Instructions: inhale one PUFF BY MOUTH TWICE DAILY metoprolol tartrate 25 mg tablet 12.5 mg PO BID Qty: 90 2RF Rx Instructions: take one-half TABLET BY MOUTH TWICE DAILY tramadol 50 mg tablet 50 mg PO Q4H 30 Days Qty: 180 0RF (DME) Bone Growth Stimulator See Rx Instructions .Route .MEDSUPPLY Qty: 1 0RF Rx Instructions: As directed metformin 1,000 mg tablet 1,000 mg PO BID Rx Instructions: TAKE ONE TABLET BY MOUTH TWICE DAILY FOR diabetes Levemir FlexPen 100 unit/mL (3 mL) insulin pen 60 unit SUBCUT BID hydrocodone-acetaminophen 5-325 mg tablet 1 - 2 tab PO .Q4-6H Qty: 40 0RF Discharge Orders: Discharge ED (Routine); Ordered 01/14/25 Ordered By: Krishna Pablo Referrals: Narcisa Emanuel MD [Primary Care Provider] - Discharge Diet: Advance as tolerated and Full LIquid Discharge Activity: Resume usual activity Patient Instructions: Constipation (ED), Abdominal Pain (ED) Activity Restrictions/Additional Instructions: Liquid diet until constipation has improved. Prescriptions been sent to pharmacy. Follow-up with your primary care and surgeon. Print Language: Sinhala Coding Level of Care Code ED Production Controller for Pascual Smith
== END 2025-01-14 03:19 | disposition home or self-care (01) ==
PROVIDERS: Emergency Provider Emergency Medicine; PCP Family Medicine
DX: K59.00 Constipation, unspecified (principal); Z79.84 Long term (current) use of oral hypoglycemic drugs; Z79.4 Long term (current) use of insulin; F17.210 Nicotine dependence, cigarettes, uncomplicated; E78.5 Hyperlipidemia, unspecified; E11.9 Type 2 diabetes mellitus without complications
CPT/HCPCS: 74018; 96372; 99283; J2212; J9999

== ENCOUNTER → 2025-02-14 14:15 | Outpatient (BNVA) | payer MEDICAID, SELFPAY | PROVIDERS: PCP Family Medicine; Visit Provider Family Medicine | DX: R30.0 Dysuria (principal); B35.6 Tinea cruris; I10 Essential (primary) hypertension | CPT/HCPCS: 87086 ==

== ENCOUNTER → 2025-02-21 08:49 | Outpatient (BNVA) | payer MEDICAID, SELFPAY | PROVIDERS: PCP Family Medicine; Visit Provider Orthopaedic Surgery | DX: Z98.1 Arthrodesis status (principal) | CPT/HCPCS: 72100 ==

== ENCOUNTER → 2025-03-14 11:17 | Outpatient (BNVA) | payer MEDICAID, SELFPAY | PROVIDERS: PCP Family Medicine; Visit Provider Family Medicine | DX: E11.69 Type 2 diabetes mellitus with other specified complication (principal); E78.5 Hyperlipidemia, unspecified; I10 Essential (primary) hypertension; F17.210 Nicotine dependence, cigarettes, uncomplicated; Z12.5 Encounter for screening for malignant neoplasm of prostate | CPT/HCPCS: 80053; 80061; 83036; G0103 ==

== ENCOUNTER → 2025-04-06 07:48 | Outpatient (BNVA) | payer MEDICAID, SELFPAY | PROVIDERS: PCP Family Medicine; Visit Provider Orthopaedic Surgery | DX: Z98.1 Arthrodesis status (principal) | CPT/HCPCS: 72100 ==

== ENCOUNTER → 2025-06-12 11:25 | Outpatient (BNVA) | payer MEDICAID, SELFPAY | PROVIDERS: PCP Family Medicine; Visit Provider Family Medicine | DX: E11.65 Type 2 diabetes mellitus with hyperglycemia (principal); Z79.4 Long term (current) use of insulin | CPT/HCPCS: 83036 ==

== ENCOUNTER → 2025-08-03 08:12 | Outpatient (BNVA) | payer MEDICAID, SELFPAY | PROVIDERS: PCP Family Medicine; Visit Provider Orthopaedic Surgery | DX: Z47.89 Encounter for other orthopedic aftercare (principal); Z98.1 Arthrodesis status | CPT/HCPCS: 72100 ==

== ENCOUNTER → 2025-09-11 11:42 | Outpatient (BNVA) | payer MEDICAID, SELFPAY | PROVIDERS: PCP Family Medicine; Visit Provider Family Medicine | DX: E11.65 Type 2 diabetes mellitus with hyperglycemia (principal); Z79.4 Long term (current) use of insulin | CPT/HCPCS: 83036 ==